=== PATIENT | male | born 1965 | race Two or more races ===

== ENCOUNTER 2017-09-16 18:23 | Inpatient (IN) | payer OTHER ==
[~2017-09-16] VITALS: Ht 177.8 cm; Wt 101.0 kg
[2017-09-16 16:30] VITALS: O2SAT 98
[~2017-09-16 18:23] MED LIST: AMLO5TAB2 PO; ASPI-516 CHEW; CALCTAB25; CLON0.2T PO; FURO1TAB60 PO; LISI-515 PO; LOVA40TA PO; METO100T PO; POTA10CA PO; SPIR50TA PO
--- NOTE | 2017-09-16 19:10 | HHI.HP ---
[facility] Service [facility] Primary Care Physician Non-Staff Admission Diagnosis Diagnoses: Chief Complaint: scrotal swelling Travel History International Travel<30 Days: No Contact w/Intl Traveler <30 Da: No History of Present Illness 52-year-old male being admitted for abdominal distention and scrotal edema Patient was in his usual state of health until over the last 2-3 weeks he began noticing scrotal edema as well as worsening lower extremity edema. He says the edema was intermittent and would fluctuate. However it has progressed within the past few days and he want to go see his primary care provider who then referred him to the emergency department. Patient also notes that his abdomen overall has become more distended than usual. Patient denies having any chest pain. He reports being just mildly short of breath which he attributes to his large abdomen. He reports having more difficulty lying flat in the past few days. In the [place] emergency department he was noted to have stable vital signs. UA substantial proteinuria. EKG showed NSR. CXR showed no acute pulmonic infiltrates. ER doc suspected pt's SOB was due to his ascites. BNP was 249. 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 EYES: No scleral icterus. No injection or drainage. ENT: No nasal bleeding or discharge. Mucous membranes pink and moist. CARDIOVASCULAR: Regular rate and rhythm. no murmurs RESPIRATORY: No accessory muscle use. Clear to auscultation. Breath sounds equal bilaterally. GASTROINTESTINAL: Abdomen non-tender, mod to severe distention; no isai ascitic wave appreciated yet is soft. Hepatic and splenic margins not palpable. Extremities: No clubbing, cyanosis. Moder BL LE edema and moderate generalized nonerythematous nontender diffuse scrotal edema MUSCULOSKELETAL: adequate muscle bulk and tone for age and habitus NEUROLOGICAL: Awake and alert. No obvious cranial nerve deficits. No facial droop nor slurred speech noted. PSYCHIATRIC: Appropriate mood and affect; insight and judgment normal. Caprini VTE Risk Assessment Caprini VTE Risk Assessment: Mod/High Risk (score >= 2) Caprini Risk Assessment Model Point Value = 1 Point Value = 2 Point Value = 3 Point Value = 5 Age 41-60 Minor surgery BMI > 25 kg/m2 Swollen legs Varicose veins or History of unexplained or recurrent spontaneous Oral contraceptives or hormone replacement Sepsis (< 1 month) Serious lung disease, including pneumonia (< 1 month) Abnormal pulmonary function Acute myocardial infarction Congestive heart failure (< 1 month) History of inflammatory bowel disease Medical patient at bed rest Age 61-74 Arthroscopic surgery Major open surgery (> 45 min) Laparoscopic surgery (> 45 min) Malignancy Confined to bed (> 72 hours) Immobilizing plaster cast Central venous access Age >= 75 History of VTE Family history of VTE Factor V Leiden Prothrombin [id number] Lupus anticoagulant Anticardiolipin antibodies Elevated serum homocysteine Heparin-induced thrombocytopenia Other congenital or acquired thrombophilia Stroke (< 1 month) Elective arthroplasty Hip, pelvis, or leg fracture Acute spinal cord injury (< 1 month) Prophylaxis Regimen Total Risk Factor Score Risk Level Prophylaxis Regimen 0-1 Low Early ambulation 2 Moderate Order ONE of the following: *Sequential Compression Device (SCD) *Heparin 5000 units SQ BID 3-4 Higher Order ONE of the following medications: *Heparin 5000 units SQ TID *Enoxaparin/Lovenox 40 mg SQ daily (WT < 150 kg, CrCl > 30 mL/min) *Enoxaparin/Lovenox 30 mg SQ daily (WT < 150 kg, CrCl > 10-29 mL/min) *Enoxaparin/Lovenox 30 mg SQ BID (WT < 150 kg, CrCl > 30 mL/min) AND/OR *Sequential Compression Device (SCD) 5 or more Highest Order ONE of the following medications: *Heparin 5000 units SQ TID (Preferred with Epidurals) *Enoxaparin/Lovenox 40 mg SQ daily (WT < 150 kg, CrCl > 30 mL/min) *Enoxaparin/Lovenox 30 mg SQ daily (WT < 150 kg, CrCl > 10-29 mL/min) *Enoxaparin/Lovenox 30 mg SQ BID (WT < 150 kg, CrCl > 30 mL/min) AND *Sequential Compression Device (SCD) Assessment and Plan Assessment and Plan Anasarca and suspected ascites - Suspect that this is largely due to ascites likely secondary to proteinuria, but may possibly have additional component of undiagnosed HF given elevated trops; LFTs neg - Scheduling ultrasound-guided paracentesis - intake and output; high protein and low fluid diet - echo in AM; Elevated troponin - Could be due to mildly impaired renal function, discussed with cardiology, will transfer to the main hospital tonight for possible catheterization in AM while holding off on heparin drip in light of possible paracentesis; I do not suspect isai ACS at this time - resume home BP meds including Lopressor and clonidine and aspirin - echo in AM - trending troponin Nephrotic syndrome w/ possible [place] - consulting nephro; high protein low sodium diet - Continue home Lisinopril, spironolactone; hold home lasix until RF returns to baseline or baseline is established - BMP in AM hypokalemia - replace K and Mg as warranted, trend in AM SCDs for now; heparin once paracentesis fully addressed Physician Certification 2 Midnight Certification Type: Admission for Inpatient Services Order for Inpatient Services The services are ordered in accordance with Medicare regulations or non- Medicare payer requirements, as applicable. In the case of services not specified as inpatient-only, they are appropriately provided as inpatient services in accordance with the 2-midnight benchmark. Estimated LOS (days): 2 2 days is the estimated time the patient will need to remain in the hospital, assuming treatment plan goals are met and no additional complications. Post-Hospital Plan: Not yet determined Jason Bethea MD Sep 16, 2017 19:10
[2017-09-16] MEDS: POTASSIUM CHLORIDE 10 MEQ CONTROLLED RELEASE TAB PO SCH (19:59)
[2017-09-16] MEDS: cloNIDine HCL 0.2 MG TAB PO SCH (19:59)
[2017-09-16] MEDS: METOPROLOL TARTRATE 100 MG TAB PO SCH (19:59)
[2017-09-16 20:00] VITALS: BP 210/106; PULSE 70; RESP 18; TEMP 96.2; O2SAT 96
[2017-09-16 20:58] VITALS: PULSE 66
[2017-09-16] MEDS ORDERED: HEPARIN SODIUM - SQ 10,000 UNITS/ML VIAL SQ SCH (21:00)
[2017-09-16 22:00] VITALS: BP 149/95; PULSE 62; RESP 22; TEMP 98.7; O2SAT 96
[2017-09-16] MEDS: LISINOPRIL 20 MG TAB PO SCH (22:45)
[2017-09-16] MEDS: MAGNESIUM SULFATE 1 GM PREMIX 100 ML IV SCH (23:30)
[2017-09-17] VITALS (20 sets, daily range): BP systolic 138–175; BP diastolic 78–102; PULSE 54–70; RESP 12–19; TEMP 96.8–98.6; O2SAT 97–100
[2017-09-17] MEDS: MAGNESIUM SULFATE 1 GM PREMIX 100 ML IV SCH (00:30)
[2017-09-17] MEDS: LISINOPRIL 20 MG TAB PO SCH (09:00)
[2017-09-17] MEDS ORDERED: FUROSEMIDE 20 MG TAB PO SCH (09:00)
[2017-09-17] MEDS: cloNIDine HCL 0.2 MG TAB PO SCH ×2 (09:34→20:02)
[2017-09-17] MEDS: POTASSIUM CHLORIDE 10 MEQ CONTROLLED RELEASE TAB PO SCH ×2 (09:35→21:03)
[2017-09-17] MEDS: amLODIPine BESYLATE 5 MG TAB PO SCH (09:35)
[2017-09-17] MEDS: ASPIRIN 81 MG CHEW TAB CHEW SCH (09:35)
[2017-09-17] MEDS: METOPROLOL TARTRATE 100 MG TAB PO SCH ×2 (09:36→20:02)
[2017-09-17] MEDS: SPIRONOLACTONE 50 MG TAB PO SCH (09:36)
[2017-09-17] MEDS: PRAVASTATIN SOD 40 MG TAB PO SCH (09:36)
--- NOTE | 2017-09-17 10:21 | MB ---
cc: Jameson Coe MD DATE OF CONSULT: 09/17/2017 HISTORY: Mr. Chapman is a 52 year-old male with a history of nephrotic syndrome. He has developed scrotal edema, lower extremity edema and ascites over the last two to three weeks. He has noticed distended abdomen, mild shortness of breath related to this. He also has had mild orthopnea. He has not had any chest discomfort. He has no previous cardiac history. His past medical history is positive for nephrotic syndrome. He has no history of coronary artery disease or CVA. 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 MEDICATIONS: Include: 1. Lovastatin. 2. Clonidine. 3. Metoprolol. 4. Amlodipine. 5. Lisinopril. 6. Spironolactone. 7. Aspirin. 8. Calcium. 9. Vitamin D. 10. Potassium. 11. Furosemide ALLERGIES: None. SOCIAL HISTORY: The patient is a smoker. He does not drink alcohol. FAMILY HISTORY: Positive for hypertension in his sister, negative for coronary artery disease. REVIEW OF SYSTEMS: Otherwise negative. PHYSICAL EXAM: VITAL SIGNS: Blood pressure 152/88, pulse 63 and irregular. HEENT: Negative. NECK: 2+ carotid upstrokes. No bruits. LUNGS: Clear. HEART: Regular with no murmur, gallop or rub. ABDOMEN: Soft, distended. EXTREMITIES: With bilateral 2+ edema. 1+ distal pulses. NEUROLOGIC: Grossly nonfocal. EKG was reviewed and showed normal sinus rhythm with normal axis and intervals. LABS: Troponin 0.11 and 0.11. Hemoglobin 8.6, potassium 2.8, creatinine 1.5, AST/ALT normal, troponin 0.11, BNP 249. DIAGNOSIS: 1. Anasarca. 2. Ascites. 3. Nephrotic syndrome. 4. Renal insufficiency. 5. Elevated troponin. 6. Hypokalemia. DISPOSITION: Mr. Chapman will undergo paracentesis today as planned. He will be scheduled for adenosine myocardial perfusion study to evaluate for ischemia. We will also obtain echocardiogram to evaluate his left ventricular function. I will follow him for cardiology during his hospitalization. He will continue therapy for his nephrotic syndrome. The plan was discussed with the patient and his sister who is a nurse practitioner. Jameson Coe MD OQ/DL/ , 08:25 AM , 09:20 AM
[2017-09-17] MEDS ORDERED: ALBUMIN 25% INJ 0 ML IV ONE (11:00)
--- NOTE | 2017-09-17 11:25 | EKG ---
Date Performed: 09/16/2017 Time Performed: 20:09:50 PTAGE: 52 years EKG: Sinus rhythm NORMAL ECG NO PREVIOUS TRACING DOCTOR: Juan F Larios Interpretating Date/Time 09/17/2017 11:23:24
--- NOTE | 2017-09-17 12:26 | RADRPT ---
EXAM DATE/TIME: 09/17/2017 08:34 [facility] COMPARISON: No previous studies available for comparison. INDICATIONS : Ascites. MEDICAL HISTORY : Hypertension. Hypercholesterolemia. Autoimmune Hemolytic Anemia. Tricuspid Regurgitation. SURGICAL HISTORY : Cyst on forehead removal. ENCOUNTER: Initial ACUITY: 3 weeks PAIN SCORE: 6/10 LOCATION: Bilateral lower abdomen. FLUID: Total volume of 10,400 cc of clear, yellow fluid was removed. Fluid was sent to lab for ordered studies. Post procedure scanning reveals no hematoma or other complication. TECHNIQUE: 1. Ultrasound guidance for abdominal paracentesis. 2. Paracentesis. The risks, benefits, and alternatives to ultrasound guided paracentesis were explained to the patient in detail including the risk of bleeding and infection. Written and verbal informed consent was obt ained. With the patient on the ultrasound table, ultrasound imaging was used to select the most appropriate approach for paracentesis. Overlying skin was prepped and draped in the usual sterile fashion and wi th a local anesthetic, a dermatotomy was made with an 11 blade scalpel. A 6 Thai [id number] ca theter was introduced into the peritoneal cavity and fluid was collected. The patient tolerated the procedure well and left the ultrasound suite in stable condition. CONCLUSION: Uncomplicated ultrasound guided paracentesis. Fluid was sent for studies. Dominick Thorne MD FACR on September 17, 2017 at 12:24 Board Certified Radiologist. This report was verified electronically.
[2017-09-17 12:40] LABS: PERITONEAL BASO 1 %; PERITONEAL HISTIOCYTES 23 %; PERITONEAL LYMPHS 71 %; PERITONEAL MONOS 3 %; PERITONEAL POLYS(SEGS) 2 %; PERITONEAL RBC 162 /MM3 (0-0)
[2017-09-17] MEDS ORDERED: REGADENOSON INJ 0.4 MG/5 ML SYR ONE (13:28)
--- NOTE | 2017-09-17 14:30 | RADRPT ---
EXAM DATE/TIME: 09/17/2017 13:05 [facility] COMPARISON: No previous studies available for comparison. INDICATIONS : Elevated troponins and lower extremity edema. Coronary artery disease. DOSE: 30.1 mCi Tc99m Myoview at stress. 10.3 mCi Tc99m Myoview at rest. 0.4 mg Lexiscan STRESS SYMPTOMS: None. EJECTION FRACTION: 44% MEDICAL HISTORY : Hypertension. SURGICAL HISTORY : None. ENCOUNTER: Initial ACUITY: 1 day PAIN SCALE: 0/10 LOCATION: Bilateral chest TECHNIQUE: The patient underwent pharmacologic stress with infusion of prescribed dose. Continuous ECG tracing was monitored during stress. Gated SPECT imaging was performed after stress and conventional SPECT i maging was performed at rest. The examination was performed on a SPECT/CT scanner, both attenuation and non-corrected datasets were reviewed. FINDINGS: DISTRIBUTION: The maximum perfused segment at stress is in the lateral wall. PERFUSION STUDY: There is a mild severity anterior wall perfusion abnormality which extends the cardiac apex. This kerr s not appear to be reversible. GATED STUDY: Moderate left ventricular chamber enlargement with global hypokinesis. CONCLUSION: No reversible perfusion abnormalities. Moderate LV dysfunction. RISK CATEGORY: Intermediate (1-3% Annual Mortality Rate) Jesse Mahan MD on September 17, 2017 at 14:24 Board Certified Radiologist. This report was verified electronically.
[2017-09-17] MEDS ORDERED: LOSARTAN 25 MG TAB PO ONE (17:15)
[2017-09-17] MEDS ORDERED: ALBUMIN 25% INJ 200 ML IV ONE (17:45)
[2017-09-17 19:02] LABS: AUTOMATED NEUTROPHIL # 9.1 TH/MM3 (1.8-7.7); BASOPHIL # 0.1 TH/MM3 (0-0.2); BASOPHIL % 0.6 % (0.0-2.0); EOSINOPHIL # 0.6 TH/MM3 (0-0.4); EOSINOPHIL % 4.7 % (0.0-4.0); HEMATOCRIT 31.1 % (39.0-51.0); HEMOGLOBIN 10.5 GM/DL (13.0-17.0); LYMPH % 21.2 % (9.0-44.0); LYMPHOCYTE # 2.8 TH/MM3 (1.0-4.8); MEAN CELL VOLUME 86.7 FL (80.0-100.0); MEAN CORPUSCULAR HEMOGLOBIN 29.3 PG (27.0-34.0); MEAN CORPUSCULAR HGB CONC 33.8 % (32.0-36.0); MONO % 5.6 % (0.0-8.0); MONOCYTE # 0.8 TH/MM3 (0-0.9); NEUT % 67.9 % (16.0-70.0); PLATELET COUNT 316 TH/MM3 (150-450); RED BLOOD COUNT 3.59 MIL/MM3 (4.50-5.90); RED CELL DISTRIBUTION WIDTH 14.6 % (11.6-17.2); WHITE BLOOD COUNT 13.4 TH/MM3 (4.0-11.0)
[2017-09-17] MEDS: ALBUMIN 25% INJ 50 ML IV ONE ×2 (19:45→20:29)
[2017-09-17 20:02] LABS: ALBUMIN 0.8 GM/DL (3.4-5.0); ALKALINE PHOSPHATASE 109 U/L (45-117); ALT (GPT) 10 U/L (12-78); AST (GOT) 20 U/L (15-37); BICARBONATE 27.9 MEQ/L (21.0-32.0); BLOOD UREA NITROGEN 13 MG/DL (7-18); CALCIUM 7.7 MG/DL (8.5-10.1); CHLORIDE 111 MEQ/L (98-107); GLOMERULAR FILTRATION RATE 54 ML/MIN (>89); GLUCOSE,RANDOM 87 MG/DL (74-106); SODIUM (NA) 147 MEQ/L (136-145); TOTAL BILIRUBIN ADULT 0.2 MG/DL (0.2-1.0); TOTAL PROTEIN 4.3 GM/DL (6.4-8.2)
--- NOTE | 2017-09-17 20:42 | PD.CONS ---
HPI Service Nephrology Consult Requested By Dr. 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 [place] he had kidney Biopsy 2 years ago and was treated with steroids, and now with Acthar 80 units every 2 weeks Review of Systems Constitutional: COMPLAINS OF: Fatigue Respiratory: COMPLAINS OF: Shortness of breath Cardiovascular: COMPLAINS OF: Lower Extremity Edema Gastrointestinal: COMPLAINS OF: Abdominal pain Past Family Social History Allergies: Coded Allergies: No Known Allergies (Unverified , 09/16/17) Past Medical History Nephrotic syndrome Hemolytic anemia Hypertension Proteinuria Past Surgical History Kidney biopsy Reported Medications Reported Meds & Active Scripts Active Reported Lisinopril 20 Mg Tab 20 Mg PO BID Spironolactone 50 Mg Tab 50 Mg PO DAILY Lasix (Furosemide) 40 Mg Tab 60 Mg PO DAILY Potassium Chloride ER (Potassium Chloride) 10 Meq Cap 10 Meq PO BID Clonidine (Clonidine HCl) 0.2 Mg Tab 0.2 Mg PO BID Amlodipine (Amlodipine Besylate) 5 Mg Tab 5 Mg PO DAILY Metoprolol Tartrate 100 Mg Tab 100 Mg PO BID Aspirin 81 Mg Chew 81 Mg CHEW DAILY Lovastatin 40 Mg Tab 40 Mg PO DAILY Calcium 500 + Vit D Caplet (Calcium Carbonate/Vitamin D3) 500 Mg-125 Tablet Active Ordered Medications Current Medications Medications (Trade) Dose Ordered Sig/Devan Route Start Time Stop Time Status Last Admin (Pravachol) 40 mg DAILY PO 09/17/17 09:00 09/17/17 09:36 (Lopressor) 100 mg BID PO 09/16/17 21:00 09/17/17 20:02 (KCl) 10 meq BID PO 09/16/17 21:00 09/17/17 09:35 (Aldactone) 50 mg DAILY PO 09/17/17 09:00 09/17/17 09:36 (Catapres) 0.2 mg BID PO 09/16/17 21:00 09/17/17 20:02 (Heparin Inj) 5,000 units Q12HR SQ 09/16/17 21:00 Future Hold 09/16/17 20:00 (Aspirin Chew) 81 mg DAILY CHEW 09/17/17 09:00 09/17/17 09:35 (Norvasc) 5 mg DAILY PO 09/17/17 09:00 09/17/17 09:35 (Cozaar) 25 mg DAILY PO 09/18/17 09:00 Family History His sister has hypertension Social History Denies smoking or alcohol Physical Exam Vital Signs Vital Signs Date Time Temp Pulse Resp B/P (MAP) Pulse Ox O2 Delivery O2 Flow Rate FiO2 09/17/17 18:00 62 09/17/17 17:06 21 09/17/17 17:00 62 09/17/17 16:00 68 09/17/17 15:00 98.6 64 19 173/102 (125) 97 09/17/17 15:00 97 Room Air 09/17/17 15:00 62 09/17/17 11:59 97.4 60 18 157/80 (105) 100 09/17/17 11:45 97.4 54 12 161/84 (109) 100 09/17/17 10:16 96.8 58 17 173/96 (121) 98 09/17/17 10:00 66 09/17/17 09:37 97.8 67 18 175/101 (125) 98 09/17/17 09:37 98 Room Air 09/17/17 09:00 70 09/17/17 08:00 64 09/17/17 07:00 63 09/17/17 04:00 63 09/17/17 04:00 98.4 63 18 152/88 (109) 09/17/17 04:00 95 Room Air 09/17/17 00:00 59 18 163/92 (115) 09/17/17 00:00 59 09/16/17 22:00 96 21 09/16/17 22:00 62 09/16/17 22:00 98.7 62 22 149/95 (113) 96 09/16/17 22:00 96 Room Air 09/16/17 20:58 66 Physical Exam GENERAL: Well-nourished, well-developed patient. SKIN: Warm and dry. HEAD: Normocephalic. EYES: No scleral icterus. No injection or drainage. NECK: Supple, trachea midline. No JVD or lymphadenopathy. CARDIOVASCULAR: Regular rate and rhythm without murmurs, gallops, or rubs. RESPIRATORY: Breath sounds diminished at bases GASTROINTESTINAL: Abdomen soft, distended. EXTREMITIES: No cyanosis, 3+ edema. NEUROLOGICAL: Awake, alert, and oriented x 3. Non-focal. Laboratory Laboratory Tests Test 09/17/17 03:19 09/17/17 10:50 09/17/17 18:18 Troponin I 0.11 Peritoneal Fluid WBC 239 Peritoneal Fluid RBC 162 Peritoneal Fluid Neutrophils 2 Peritoneal Fluid Lymphocytes 71 Peritoneal Fluid Monocytes 3 Peritoneal Fluid Basophils 1 Peritoneal Fluid Histiocytes 23 Peritoneal Fluid Total Protein 1.0 Peritoneal Fluid Albumin 0.3 Peritoneal Fluid Glucose 77 White Blood Count 13.4 Red Blood Count 3.59 Hemoglobin 10.5 Hematocrit 31.1 Mean Corpuscular Volume 86.7 Mean Corpuscular Hemoglobin 29.3 Mean Corpuscular Hemoglobin Concent 33.8 Red Cell Distribution Width 14.6 Platelet Count 316 Mean Platelet Volume 8.0 Neutrophils (%) (Auto) 67.9 Lymphocytes (%) (Auto) 21.2 Monocytes (%) (Auto) 5.6 Eosinophils (%) (Auto) 4.7 Basophils (%) (Auto) 0.6 Neutrophils # (Auto) 9.1 Lymphocytes # (Auto) 2.8 Monocytes # (Auto) 0.8 Eosinophils # (Auto) 0.6 Basophils # (Auto) 0.1 CBC Comment DIFF FINAL Differential Comment Blood Urea Nitrogen 13 Creatinine 1.40 Random Glucose 87 Total Protein 4.3 Albumin 0.8 Calcium Level 7.7 Alkaline Phosphatase 109 Aspartate Amino Transf (AST/SGOT) 20 Alanine Aminotransferase (ALT/SGPT) 10 Total Bilirubin 0.2 Sodium Level 147 Potassium Level 2.9 Chloride Level 111 Carbon Dioxide Level 27.9 Anion Gap 8 Estimat Glomerular Filtration Rate 54 Date/Time Source Procedure Growth Status 09/17/17 10:50 Fluid Peritoneal Fluid Gram Stain - Final Resulted 09/17/17 10:50 Fluid Peritoneal Fluid Body Fluid Culture Pending Resulted Result Diagram: 09/17/17181709/17/171817 Assessment and Plan Problem List: (1) Nephrotic syndrome ICD Codes: N04.9 - Nephrotic syndrome with unspecified morphologic changes Plan: Patient needs further evaluation get ROXANE and serum complements C3-C4, Urine protein Checked Follow-up BMP Get lipid profile Avoid nephrotoxins Continue to diurese Her follows with Dr. Moon who can follow him once discharged he will need anticoagulation Rec to add Eliquis 2.5 mg bid Lasix 40 mg daily and Potassium supplements. (2) Hypertension ICD Codes: I10 - Essential (primary) hypertension Plan: Plan continue with antihypertensive medication Problem Qualifiers (1) Hypertension: Qualified Codes: I10 - Essential (primary) hypertension Parvez Wise MD Sep 17, 2017 20:42
[2017-09-17] MEDS ORDERED: POTASSIUM CHLORIDE 20 MEQ CONTROLLED RELEASE TAB PO ONE (21:00)
[2017-09-17] MEDS ORDERED: MAGNESIUM SULFATE 1 GM PREMIX 100 ML IV ONE (23:00)
--- NOTE | 2017-09-17 23:01 | HHI.PR ---
Subjective Remarks Patient seen this afternoon around 3 PM. Says he is feeling better after paracentesis. Objective Vital Signs Date Time Temp Pulse Resp B/P (MAP) Pulse Ox O2 Delivery O2 Flow Rate FiO2 09/17/17 20:00 56 09/17/17 19:00 56 09/17/17 18:00 62 09/17/17 17:06 21 09/17/17 17:00 62 09/17/17 16:00 68 09/17/17 15:00 98.6 64 19 173/102 (125) 97 09/17/17 15:00 97 Room Air 09/17/17 15:00 62 09/17/17 11:59 97.4 60 18 157/80 (105) 100 09/17/17 11:45 97.4 54 12 161/84 (109) 100 09/17/17 10:16 96.8 58 17 173/96 (121) 98 09/17/17 10:00 66 09/17/17 09:37 97.8 67 18 175/101 (125) 98 09/17/17 09:37 98 Room Air 09/17/17 09:00 70 09/17/17 08:00 64 09/17/17 07:00 63 09/17/17 04:00 63 09/17/17 04:00 98.4 63 18 152/88 (109) 09/17/17 04:00 95 Room Air 09/17/17 00:00 59 18 163/92 (115) 09/17/17 00:00 59 I/O 09/16/17 09/16/17 09/16/17 09/17/17 09/17/17 09/17/17 07:00 15:00 23:00 07:00 15:00 23:00 Intake Total 440 ml 650 ml Output Total 300 ml Balance 140 ml 650 ml Intake Oral 240 ml 400 ml IV Total 200 ml 250 ml Output Urine Total 300 ml # Voids 2 # Bowel Movements 0 Result Diagram: 09/17/17181709/17/171817 Objective Remarks GENERAL: patient lying in bed. Appears comfortable. SKIN: Warm and dry. HEAD: Normocephalic. EYES: No scleral icterus. No injection or drainage. NECK: Supple, trachea midline. No JVD. CARDIOVASCULAR: Regular rate and rhythm without murmurs, gallops, or rubs. RESPIRATORY: Breath sounds equal bilaterally. No accessory muscle use. GASTROINTESTINAL: Abdomen soft, non-tender, nondistended. MUSCULOSKELETAL: No cyanosis. Diffuse anasarca. BACK: Nontender without obvious deformity. No CVA tenderness. A/P Assessment and Plan //Anasarca and suspected ascites - Suspect that this is largely due to ascites likely secondary to proteinuria, but may possibly have additional component of undiagnosed HF given elevated trops; LFTs neg - Scheduling ultrasound-guided paracentesis - intake and output; high protein and low fluid diet - echo in AM; //Severe nephrotic syndrome. Acute on chronic Consult cardiology. Start losartan.spironolactone; hold home lasix until RF returns to baseline or baseline is established = Nephrology following. Appreciate assistance. //Elevated troponin - Could be due to mildly impaired renal function, discussed with cardiology, will transfer to the main hospital tonight for possible catheterization in AM while holding off on heparin drip in light of possible paracentesis; I do not suspect isai ACS at this time - resume home BP meds including Lopressor and clonidine and aspirin - echo in AM - trending troponin = Troponin positive at 0.11. Moderate risk myocardial perfusion scan. Cardiology following. Patient without chest pain. Appreciate assistance. //hypokalemia - replace K and Mg as warranted, trend in AM SCDs for now; heparin once paracentesis fully addressed Discharge Planning pending cardiology and nephrology clearance Chauncey Alcantara MD Sep 17, 2017 23:01
[2017-09-18] VITALS (30 sets, daily range): BP systolic 134–172; BP diastolic 70–100; PULSE 56–78; RESP 18; TEMP 97.6–98.3; O2SAT 96–99
[2017-09-18 02:17] LABS: BILIRUBIN, URINE NEG (NEG); BLOOD, URINE SMALL (NEG); GLUCOSE,URINE 150 mg/dL (NEG); HYALINE CAST, URINE 15 /lpf (RARE); KETONE, URINE NEG (NEG); MUCUS URINE FEW /lpf (OCC); NITRITE,URINE NEG (NEG); SQUAMOUS EPITHELIAL CELL URINE <1 /hpf (0-5); URINE COLOR YELLOW (YELLW/STRAW); URINE LEUKOCYTE ESTERASE NEG (NEG)
[2017-09-18 08:01] LABS: AUTOMATED NEUTROPHIL # 7.2 TH/MM3 (1.8-7.7); BASOPHIL # 0.1 TH/MM3 (0-0.2); BASOPHIL % 0.5 % (0.0-2.0); EOSINOPHIL # 0.5 TH/MM3 (0-0.4); EOSINOPHIL % 5.2 % (0.0-4.0); HEMATOCRIT 24.2 % (39.0-51.0); HEMOGLOBIN 8.6 GM/DL (13.0-17.0); LYMPH % 17.6 % (9.0-44.0); LYMPHOCYTE # 1.8 TH/MM3 (1.0-4.8); MEAN CELL VOLUME 85.3 FL (80.0-100.0); MEAN CORPUSCULAR HEMOGLOBIN 30.3 PG (27.0-34.0); MEAN CORPUSCULAR HGB CONC 35.5 % (32.0-36.0); MEAN PLATELET VOLUME 7.9 FL (7.0-11.0); MONO % 6.8 % (0.0-8.0); MONOCYTE # 0.7 TH/MM3 (0-0.9); NEUT % 69.9 % (16.0-70.0); PLATELET COUNT 263 TH/MM3 (150-450); RED BLOOD COUNT 2.84 MIL/MM3 (4.50-5.90); RED CELL DISTRIBUTION WIDTH 14.3 % (11.6-17.2); WHITE BLOOD COUNT 10.3 TH/MM3 (4.0-11.0)
[2017-09-18 08:09] LABS: ALBUMIN 1.5 GM/DL (3.4-5.0); CALCIUM 7.7 MG/DL (8.5-10.1); CREATININE 1.33 MG/DL (0.60-1.30); MAGNESIUM 1.9 MG/DL (1.5-2.5); PHOSPHORUS 2.6 MG/DL (2.5-4.9)
[2017-09-18 08:10] LABS: COMPLEMENT C3 113 MG/DL (90-180); COMPLEMENT C4 28 MG/DL (10-40)
[2017-09-18 08:14] LABS: BICARBONATE 26.2 MEQ/L (21.0-32.0); CHOLESTEROL/ HDL RATIO 3.88 RATIO; HDL CHOLESTEROL 39.4 MG/DL (40.0-60.0)
--- NOTE | 2017-09-18 08:39 | PD.CARD.PN ---
Subjective Subjective Remarks No CP, mild SOB, edema improving Objective Medications Current Medications Medications (Trade) Dose Ordered Sig/Devan Route Start Time Stop Time Status Last Admin (Pravachol) 40 mg DAILY PO 09/17/17 09:00 09/17/17 09:36 (Lopressor) 100 mg BID PO 09/16/17 21:00 09/17/17 20:02 (KCl) 10 meq BID PO 09/16/17 21:00 09/17/17 21:03 (Aldactone) 50 mg DAILY PO 09/17/17 09:00 09/17/17 09:36 (Catapres) 0.2 mg BID PO 09/16/17 21:00 09/17/17 20:02 (Heparin Inj) 5,000 units Q12HR SQ 09/16/17 21:00 Future Hold 09/16/17 20:00 (Aspirin Chew) 81 mg DAILY CHEW 09/17/17 09:00 09/17/17 09:35 (Norvasc) 5 mg DAILY PO 09/17/17 09:00 09/17/17 09:35 (Cozaar) 25 mg DAILY PO 09/18/17 09:00 (Lasix) 40 mg DAILY PO 09/18/17 09:00 (KCl) 16 meq Q12HR PO 09/18/17 09:00 Vital Signs / I&O Vital Signs Date Time Temp Pulse Resp B/P (MAP) Pulse Ox O2 Delivery O2 Flow Rate FiO2 09/18/17 06:00 62 09/18/17 05:00 57 09/18/17 04:00 62 09/18/17 03:10 98.3 64 18 152/86 (108) 99 09/18/17 03:00 59 09/18/17 02:00 60 09/18/17 01:00 56 09/18/17 00:00 56 09/17/17 23:00 56 09/17/17 23:00 97.6 63 18 138/78 (98) 99 09/17/17 22:00 56 09/17/17 21:00 56 09/17/17 20:00 56 09/17/17 19:30 98.0 68 18 167/87 (113) 99 09/17/17 19:30 98 21 09/17/17 19:00 56 09/17/17 18:00 62 09/17/17 17:06 21 09/17/17 17:00 62 09/17/17 16:00 68 09/17/17 15:00 98.6 64 19 173/102 (125) 97 09/17/17 15:00 97 Room Air 09/17/17 15:00 62 09/17/17 11:59 97.4 60 18 157/80 (105) 100 09/17/17 11:45 97.4 54 12 161/84 (109) 100 09/17/17 10:16 96.8 58 17 173/96 (121) 98 09/17/17 10:00 66 09/17/17 09:37 97.8 67 18 175/101 (125) 98 09/17/17 09:37 98 Room Air 09/17/17 09:00 70 I/O 09/17/17 09/17/17 09/17/17 09/18/17 09/18/17 09/18/17 07:00 15:00 23:00 07:00 15:00 23:00 Intake Total 440 ml 650 ml 580 ml Output Total 300 ml 600 ml Balance 140 ml 650 ml -20 ml Intake Oral 240 ml 400 ml 480 ml IV Total 200 ml 250 ml 100 ml Output Urine Total 300 ml 600 ml # Voids 2 # Bowel Movements 0 1 Physical Exam GENERAL: In NAD SKIN: Warm and dry. HEAD: Normocephalic. EYES: No scleral icterus. No injection or drainage. NECK: Supple, trachea midline. No JVD or lymphadenopathy. CARDIOVASCULAR: Regular rate and rhythm without murmurs, gallops, or rubs. RESPIRATORY: Breath sounds equal bilaterally. No accessory muscle use. GASTROINTESTINAL: Abdomen soft, non-tender. MUSCULOSKELETAL: No cyanosis, bilat LE edema. Laboratory Laboratory Tests Test 09/17/17 10:50 09/17/17 18:18 09/18/17 01:35 09/18/17 07:21 Peritoneal Fluid WBC 239 /MM3 Peritoneal Fluid RBC 162 /MM3 Peritoneal Fluid Neutrophils 2 % Peritoneal Fluid Lymphocytes 71 % Peritoneal Fluid Monocytes 3 % Peritoneal Fluid Basophils 1 % Peritoneal Fluid Histiocytes 23 % Peritoneal Fluid Total Protein 1.0 GM/DL Peritoneal Fluid Albumin 0.3 G/DL Peritoneal Fluid Glucose 77 MG/DL White Blood Count 13.4 TH/MM3 10.3 TH/MM3 Red Blood Count 3.59 MIL/MM3 2.84 MIL/MM3 Hemoglobin 10.5 GM/DL 8.6 GM/DL Hematocrit 31.1 % 24.2 % Mean Corpuscular Volume 86.7 FL 85.3 FL Mean Corpuscular Hemoglobin 29.3 PG 30.3 PG Mean Corpuscular Hemoglobin Concent 33.8 % 35.5 % Red Cell Distribution Width 14.6 % 14.3 % Platelet Count 316 TH/MM3 263 TH/MM3 Mean Platelet Volume 8.0 FL 7.9 FL Neutrophils (%) (Auto) 67.9 % 69.9 % Lymphocytes (%) (Auto) 21.2 % 17.6 % Monocytes (%) (Auto) 5.6 % 6.8 % Eosinophils (%) (Auto) 4.7 % 5.2 % Basophils (%) (Auto) 0.6 % 0.5 % Neutrophils # (Auto) 9.1 TH/MM3 7.2 TH/MM3 Lymphocytes # (Auto) 2.8 TH/MM3 1.8 TH/MM3 Monocytes # (Auto) 0.8 TH/MM3 0.7 TH/MM3 Eosinophils # (Auto) 0.6 TH/MM3 0.5 TH/MM3 Basophils # (Auto) 0.1 TH/MM3 0.1 TH/MM3 CBC Comment DIFF FINAL DIFF FINAL Differential Comment Blood Urea Nitrogen 13 MG/DL 12 MG/DL Creatinine 1.40 MG/DL 1.33 MG/DL Random Glucose 87 MG/DL 78 MG/DL Total Protein 4.3 GM/DL Albumin 0.8 GM/DL 1.5 GM/DL Calcium Level 7.7 MG/DL 7.7 MG/DL Alkaline Phosphatase 109 U/L Aspartate Amino Transf (AST/SGOT) 20 U/L Alanine Aminotransferase (ALT/SGPT) 10 U/L Total Bilirubin 0.2 MG/DL Sodium Level 147 MEQ/L 146 MEQ/L Potassium Level 2.9 MEQ/L 3.2 MEQ/L Chloride Level 111 MEQ/L 111 MEQ/L Carbon Dioxide Level 27.9 MEQ/L 26.2 MEQ/L Anion Gap 8 MEQ/L 9 MEQ/L Estimat Glomerular Filtration Rate 54 ML/MIN 57 ML/MIN Urine Color YELLOW Urine Turbidity CLEAR Urine pH 7.0 Urine Specific Atkinson 1.019 Urine Protein GREATER THAN 600 mg/dL Urine Glucose (UA) 150 mg/dL Urine Ketones NEG mg/dL Urine Occult Blood SMALL Urine Nitrite NEG Urine Bilirubin NEG Urine Urobilinogen LESS THAN 2.0 MG/DL Urine Leukocyte Esterase NEG Urine RBC 2 /hpf Urine WBC 1 /hpf Urine Squamous Epithelial Cells <1 /hpf Urine Hyaline Casts 15 /lpf Urine Mucus FEW /lpf Microscopic Urinalysis Comment CULT NOT INDICATED Urine Random Creatinine 99 MG/DL Urine Random Total Protein 1581 MG/DL Urine Protein/Creatinine Ratio 15.97 Phosphorus Level 2.6 MG/DL Magnesium Level 1.9 MG/DL Triglycerides Level 110 MG/DL Cholesterol Level 153 MG/DL LDL Cholesterol 92 MG/DL HDL Cholesterol 39.4 MG/DL Cholesterol/HDL Ratio 3.88 RATIO Complement C3 113 MG/DL Complement C4 28 MG/DL Assessment and Plan Problem List: (1) Anasarca ICD Codes: R60.1 - Generalized edema (2) Elevated troponin ICD Codes: R74.8 - Abnormal levels of other serum enzymes (3) Cardiomyopathy ICD Codes: I42.9 - Cardiomyopathy, unspecified (4) Nephrotic syndrome ICD Codes: N04.9 - Nephrotic syndrome with unspecified morphologic changes (5) Hypertension ICD Codes: I10 - Essential (primary) hypertension Assessment and Plan Nuc ST with no evidence of ischemia. Mild LV dysfx (EF 44%). Check echo. Continue diuresis. Continue beta norberto and ARB. Increase activity. D/w pt and his sister. Problem Qualifiers (1) Hypertension: Qualified Codes: I10 - Essential (primary) hypertension Jameson Coe MD Sep 18, 2017 08:39
[2017-09-18] MEDS ORDERED: LOSARTAN 25 MG TAB PO SCH ×2 (09:00→21:00)
[2017-09-18] MEDS ORDERED: FUROSEMIDE 40 MG TAB PO SCH (09:00)
--- NOTE | 2017-09-18 09:11 | RADRPT ---
EXAM DATE/TIME: 09/18/2017 08:47 [facility] COMPARISON: No previous studies available for comparison. INDICATIONS : Increased BUN and Creatinine. MEDICAL HISTORY : Hypercholesterolemia. Hypertension. Autoimmune Hemolytic Anemia. SURGICAL HISTORY : Cyst on forehead removed. ENCOUNTER: Initial ACUITY: 3 days PAIN SCORE: 0/10 LOCATION: Bilateral flank MEASUREMENTS: RIGHT KIDNEY: 12.2 x 6.3 x 6.1 cm LEFT KIDNEY: 11.9 x 6.2 x 6.2 cm FINDINGS: Small amount of ascites RIGHT KIDNEY: Renal cortex is normal in thickness and increased in echotexture. No hydronephrosis, stone, or mass. LEFT KIDNEY: Renal cortex is normal in thickness and increased in echotexture. No hydronephrosis, stone, or mass. BLADDER: Within normal limits given the degree of distension. CONCLUSION: Mild increased echogenicity to both kidneys. Small amount of ascites. No hydronephrosis. Chris Gerard MD on September 18, 2017 at 9:10 Board Certified Radiologist. This report was verified electronically.
[2017-09-18] MEDS: amLODIPine BESYLATE 5 MG TAB PO SCH (10:22)
[2017-09-18] MEDS: cloNIDine HCL 0.2 MG TAB PO SCH ×2 (10:23→20:56)
[2017-09-18] MEDS: SPIRONOLACTONE 50 MG TAB PO SCH (10:23)
[2017-09-18] MEDS: POTASSIUM CHLORIDE 10 MEQ CONTROLLED RELEASE TAB PO SCH ×2 (10:23→20:56)
[2017-09-18] MEDS: PRAVASTATIN SOD 40 MG TAB PO SCH (10:23)
[2017-09-18] MEDS: POTASSIUM CHLORIDE 8 MEQ CONTROLLED RELEASE TAB PO SCH ×2 (10:23→20:57)
[2017-09-18] MEDS: METOPROLOL TARTRATE 100 MG TAB PO SCH ×2 (10:24→20:56)
[2017-09-18] MEDS: ASPIRIN 81 MG CHEW TAB CHEW SCH (10:24)
--- NOTE | 2017-09-18 11:27 | HHI.NPPN ---
Subjective History of Present Illness 52 year old with Nephrotic syndrome Interval History paracentesis 10.4 L Additional Remarks edema Objective Data Data Vital Signs Date Time Temp Pulse Resp B/P (MAP) Pulse Ox O2 Delivery O2 Flow Rate FiO2 09/18/17 10:15 97.6 78 18 145/80 (101) 96 09/18/17 10:05 96 21 09/18/17 06:00 62 09/18/17 05:00 57 09/18/17 04:00 62 09/18/17 03:10 98.3 64 18 152/86 (108) 99 09/18/17 03:00 59 09/18/17 02:00 60 09/18/17 01:00 56 09/18/17 00:00 56 09/17/17 23:00 56 09/17/17 23:00 97.6 63 18 138/78 (98) 99 09/17/17 22:00 56 09/17/17 21:00 56 09/17/17 20:00 56 09/17/17 19:30 98.0 68 18 167/87 (113) 99 09/17/17 19:30 98 21 09/17/17 19:00 56 09/17/17 18:00 62 09/17/17 17:06 21 09/17/17 17:00 62 09/17/17 16:00 68 09/17/17 15:00 98.6 64 19 173/102 (125) 97 09/17/17 15:00 97 Room Air 09/17/17 15:00 62 09/17/17 11:59 97.4 60 18 157/80 (105) 100 09/17/17 11:45 97.4 54 12 161/84 (109) 100 -: 09/18/17 0721 09/18/17 0721 Physical Exam General Appearance: Well Developed, Well Nourished Neck Neck Exam: Neck Supple Pulmonary Resp Exam: Decreased Bases Cardiology CV Exam: Regular, Normal Sinus Rhythm Gastrointestinal/Abdomen GI Exam: Soft, Bowel Sounds Present Extremeties Extremities Exam: Moderate Edema, Pitting Edema Assessment/Plan Problem List: (1) Nephrotic syndrome ICD Codes: N04.9 - Nephrotic syndrome with unspecified morphologic changes Plan: Patient Continue to diurese inc Lasix 40 mg bid, and ARB was added he refused Lisinopril He follows with Dr. Moon who can follow him once discharged he will need anticoagulation Rec to add Eliquis 2.5 mg bid continue Potassium supplements. (2) Hypertension ICD Codes: I10 - Essential (primary) hypertension Plan: Plan continue with antihypertensive medication Problem Qualifiers (1) Hypertension: Qualified Codes: I10 - Essential (primary) hypertension Parvez Wise MD Sep 18, 2017 11:27
--- NOTE | 2017-09-18 11:40 | HHI.PR ---
Subjective Remarks Patient seen this morning around 8:30 AM. Says he is feeling all right. Reports improvement in severe bilateral lower extremity edema. No increase in abdominal distention. Denies any chest pain. Objective Vital Signs Date Time Temp Pulse Resp B/P (MAP) Pulse Ox O2 Delivery O2 Flow Rate FiO2 09/18/17 10:15 97.6 78 18 145/80 (101) 96 09/18/17 10:05 96 21 09/18/17 06:00 62 09/18/17 05:00 57 09/18/17 04:00 62 09/18/17 03:10 98.3 64 18 152/86 (108) 99 09/18/17 03:00 59 09/18/17 02:00 60 09/18/17 01:00 56 09/18/17 00:00 56 09/17/17 23:00 56 09/17/17 23:00 97.6 63 18 138/78 (98) 99 09/17/17 22:00 56 09/17/17 21:00 56 09/17/17 20:00 56 09/17/17 19:30 98.0 68 18 167/87 (113) 99 09/17/17 19:30 98 21 09/17/17 19:00 56 09/17/17 18:00 62 09/17/17 17:06 21 09/17/17 17:00 62 09/17/17 16:00 68 09/17/17 15:00 98.6 64 19 173/102 (125) 97 09/17/17 15:00 97 Room Air 09/17/17 15:00 62 09/17/17 11:59 97.4 60 18 157/80 (105) 100 09/17/17 11:45 97.4 54 12 161/84 (109) 100 I/O 09/17/17 09/17/17 09/17/17 09/18/17 09/18/17 09/18/17 07:00 15:00 23:00 07:00 15:00 23:00 Intake Total 440 ml 650 ml 580 ml Output Total 300 ml 600 ml Balance 140 ml 650 ml -20 ml Intake Oral 240 ml 400 ml 480 ml IV Total 200 ml 250 ml 100 ml Output Urine Total 300 ml 600 ml # Voids 2 # Bowel Movements 0 1 Result Diagram: 3/08/07 72009/18/17720 Objective Remarks GENERAL: patient lying in bed. Appears comfortable. SKIN: Warm and dry. HEAD: Normocephalic. EYES: No scleral icterus. No injection or drainage. NECK: Supple, trachea midline. No JVD. CARDIOVASCULAR: Regular rate and rhythm without murmurs, gallops, or rubs. RESPIRATORY: Breath sounds equal bilaterally. No accessory muscle use. GASTROINTESTINAL: Abdomen soft, non-tender, nondistended. MUSCULOSKELETAL: No cyanosis. Diffuse anasarca, slightly improved from yesterday. BACK: Nontender without obvious deformity. No CVA tenderness. A/P Assessment and Plan //Anasarca and ascites - Suspect that this is largely due to ascites likely secondary to proteinuria, but may possibly have additional component of undiagnosed HF given elevated trops; LFTs neg - Scheduling ultrasound-guided paracentesis - intake and output; high protein and low fluid diet - echo still pending. //Severe nephrotic syndrome. Acute on chronic Consult cardiology. Start losartan.spironolactone; hold home lasix until RF returns to baseline or baseline is established = Nephrology following. Appreciate assistance. = Continue on diuretics as per nephrology. Potassium replacement. Will increase losartan dose to twice daily. //Elevated troponin - Could be due to mildly impaired renal function, discussed with cardiology, will transfer to the main hospital tonight for possible catheterization in AM while holding off on heparin drip in light of possible paracentesis; I do not suspect isai ACS at this time - resume home BP meds including Lopressor and clonidine and aspirin - echo in AM - trending troponin = Troponin positive at 0.11. Moderate risk myocardial perfusion scan. Cardiology following. Patient without chest pain. Appreciate assistance. = Cardiology following. Echocardiogram pending. Appreciate assistance. //hypokalemia - replace K and Mg as warranted, trend in AM = Potassium 3.2 this morning. Replaced by nephrology. Continue to monitor tomorrow. SCDs for now; heparin once paracentesis fully addressed Discharge Planning pending cardiology and nephrology clearance Chauncey Alcantara MD Sep 18, 2017 11:40
[2017-09-18] MEDS ORDERED: ENALAPRILAT 1.25 MG/ML VIAL IV PUSH PRN (16:45)
--- NOTE | 2017-09-18 17:37 | ECHRPT ---
Indication: HEART FAILURE CONCLUSIONS The left ventricular systolic function is normal with an estimated ejection fraction in the range of 55-60%. Normal left ventricular size. Wall thickness is normal. No regional wall motion abnormalities are present. Trace mitral valve regurgitation. There is trace tricuspid valve regurgitation. Normal estimated pulmonary pressures. Trivial pulmonary valve regurgitation. BP: 175 / 101 HR: 67 Rhythm: Sinus MEASUREMENTS (Male / Female) Normal Values Technical Quality:Good 2D ECHO LV Diastolic Diameter PLAX 5.1 cm 4.2 - 5.9 / 3.9 - 5.3 cm LV Systolic Diameter PLAX 3.8 cm IVS Diastolic Thickness 1.1 cm 0.6 - 1.0 / 0.6 - 0.9 cm LVPW Diastolic Thickness 1.1 cm 0.6 - 1.0 / 0.6 - 0.9 cm LV Relative Wall Thickness 0.4 RV Internal Dim ED PLAX 3.4 cm LA Systolic Diameter LX 4.2 cm 3.0 - 4.0 / 2.7 - 3.8 cm LV Ejection Fraction MOD 4C 60.3 % LV Cardiac Index MOD 4C 2390.0 cm/minm LV Ejection Fraction 4C AL 62.1 % LV Cardiac Index 4C AL 2552.9 cm/minm M-MODE Aortic Root Diameter MM 2.6 cm LA Systolic Diameter MM 2.8 cm LA Ao Ratio MM 1.1 AV Cusp Separation MM 1.8 cm DOPPLER AV Peak Velocity 143.5 cm/s AV Peak Gradient 8.2 mmHg LVOT Peak Velocity 125.0 cm/s LVOT Peak Gradient 6.3 mmHg MV Area PHT 2.3 cm Mitral E Point Velocity 75.0 cm/s Mitral A Point Velocity 69.6 cm/s Mitral E to A Ratio 1.1 LV E' Lateral Velocity 9.5 cm/s Mitral E to LV E' Lateral Ratio 7.9 LV E' Septal Velocity 9.8 cm/s Mitral E to LV E' Septal Ratio 7.6 TR Peak Velocity 156.0 cm/s TR Peak Gradient 9.7 mmHg Right Atrial Pressure 10.0 mmHg Pulmonary Artery Systolic Pressu 19.7 mmHg Right Ventricular Systolic Press 19.7 mmHg PV Peak Velocity 124.0 cm/s PV Peak Gradient 6.2 mmHg FINDINGS LEFT VENTRICLE The left ventricular systolic function is normal with an estimated ejection fraction in the range of 55-60%. Normal left ventricular size. Wall thickness is normal. No regional wall motion abnormalities are present. RIGHT VENTRICLE Normal right ventricular size and systolic function. LEFT ATRIUM The left atrial size is normal. RIGHT ATRIUM The right atrial size is normal. ATRIAL SEPTUM Normal atrial septal thickness without atrial level shunting by limited color doppler interrogation. AORTA The aortic root and proximal ascending aorta are normal in size on limited imaging. MITRAL VALVE Trace mitral valve regurgitation. AORTIC VALVE Trileaflet aortic valve. No aortic valve stenosis or regurgitation. TRICUSPID VALVE Structurally normal tricuspid valve. There is trace tricuspid valve regurgitation. Normal estimated pulmonary pressures. PULMONARY VALVE Trivial pulmonary valve regurgitation. VESSELS The inferior vena cava is normal in size. PERICARDIUM No pericardial effusion. Raul Nelson MD, FACC, FSCAI (Electronically Signed) Final Date:18 September 2017 17:36
[2017-09-18] MEDS: FUROSEMIDE 40 MG TAB PO SCH (20:55)
[2017-09-18] MEDS: LOSARTAN 50 MG TAB PO SCH (20:56)
[2017-09-19] VITALS (14 sets, daily range): BP systolic 138–173; BP diastolic 78–96; PULSE 57–88; RESP 18–20; TEMP 97.9–98; O2SAT 96–99
[2017-09-19 07:28] LABS: AUTOMATED NEUTROPHIL # 7.5 TH/MM3 (1.8-7.7); BASOPHIL % 0.4 % (0.0-2.0); EOSINOPHIL # 0.6 TH/MM3 (0-0.4); EOSINOPHIL % 5.2 % (0.0-4.0); HEMATOCRIT 28.7 % (39.0-51.0); HEMOGLOBIN 9.8 GM/DL (13.0-17.0); LYMPH % 21.1 % (9.0-44.0); LYMPHOCYTE # 2.4 TH/MM3 (1.0-4.8); MEAN CELL VOLUME 86.2 FL (80.0-100.0); MEAN CORPUSCULAR HEMOGLOBIN 29.6 PG (27.0-34.0); MEAN CORPUSCULAR HGB CONC 34.3 % (32.0-36.0); MEAN PLATELET VOLUME 8.4 FL (7.0-11.0); MONO % 7.5 % (0.0-8.0); MONOCYTE # 0.9 TH/MM3 (0-0.9); NEUT % 65.8 % (16.0-70.0); PLATELET COUNT 293 TH/MM3 (150-450); RED BLOOD COUNT 3.33 MIL/MM3 (4.50-5.90); RED CELL DISTRIBUTION WIDTH 14.4 % (11.6-17.2); WHITE BLOOD COUNT 11.5 TH/MM3 (4.0-11.0)
[2017-09-19 07:48] LABS: ALBUMIN 1.3 GM/DL (3.4-5.0); BICARBONATE 25.9 MEQ/L (21.0-32.0); CREATININE 1.39 MG/DL (0.60-1.30); MAGNESIUM 1.7 MG/DL (1.5-2.5)
[2017-09-19 07:49] LABS: PHOSPHORUS 2.5 MG/DL (2.5-4.9)
[2017-09-19] MEDS: FUROSEMIDE 40 MG TAB PO SCH (09:22)
[2017-09-19] MEDS: POTASSIUM CHLORIDE 10 MEQ CONTROLLED RELEASE TAB PO SCH (09:23)
[2017-09-19] MEDS: METOPROLOL TARTRATE 100 MG TAB PO SCH (09:23)
[2017-09-19] MEDS: SPIRONOLACTONE 50 MG TAB PO SCH (09:23)
[2017-09-19] MEDS: cloNIDine HCL 0.2 MG TAB PO SCH (09:23)
[2017-09-19] MEDS: LOSARTAN 50 MG TAB PO SCH (09:23)
[2017-09-19] MEDS: PRAVASTATIN SOD 40 MG TAB PO SCH (09:23)
[2017-09-19] MEDS: ASPIRIN 81 MG CHEW TAB CHEW SCH (09:23)
[2017-09-19] MEDS: POTASSIUM CHLORIDE 8 MEQ CONTROLLED RELEASE TAB PO SCH (09:23)
[2017-09-19] MEDS: amLODIPine BESYLATE 5 MG TAB PO SCH (09:23)
[2017-09-19] MEDS ORDERED: FURO1TAB60 PO (10:38)
[2017-09-19] MEDS ORDERED: POTA10CA PO (10:38)
[2017-09-19] MEDS ORDERED: COZA50TA PO (10:38)
[2017-09-19] MEDS ORDERED: APIX2.5T PO (10:46)
--- NOTE | 2017-09-19 10:52 | HHI.PR ---
Subjective Remarks Patient says he is feeling well. Denies any chest pain or shortness of breath. Objective Vital Signs Date Time Temp Pulse Resp B/P (MAP) Pulse Ox O2 Delivery O2 Flow Rate FiO2 09/19/17 10:04 82 09/19/17 09:30 86 09/19/17 09:29 98.0 88 20 173/96 (121) 98 09/19/17 08:34 80 09/19/17 06:00 59 09/19/17 05:00 57 09/19/17 04:00 57 09/19/17 04:00 97.9 60 20 138/78 (98) 99 09/19/17 03:00 71 09/19/17 02:00 67 09/19/17 01:00 66 09/19/17 00:00 58 09/19/17 00:00 98.0 63 18 142/83 (102) 98 09/18/17 23:00 60 09/18/17 22:00 57 09/18/17 21:00 62 09/18/17 20:00 61 09/18/17 19:00 61 09/18/17 19:00 97.8 61 18 145/93 (110) 98 09/18/17 18:32 60 09/18/17 17:34 143/80 (101) 09/18/17 17:01 61 09/18/17 16:24 98.0 59 18 172/100 (124) 98 09/18/17 16:00 58 09/18/17 15:00 60 09/18/17 14:00 58 09/18/17 13:00 64 09/18/17 12:37 97.7 56 18 134/70 (91) 99 09/18/17 12:00 58 09/18/17 11:00 56 I/O 09/18/17 09/18/17 09/18/17 09/19/17 09/19/17 09/19/17 07:00 15:00 23:00 07:00 15:00 23:00 Intake Total 580 ml 360 ml 460 ml Output Total 600 ml 750 ml 800 ml Balance -20 ml -390 ml -340 ml Intake Oral 480 ml 360 ml 460 ml IV Total 100 ml Output Urine Total 600 ml 750 ml 800 ml # Bowel Movements 1 1 0 Result Diagram: 09/19/1763209/19/17632 Objective Remarks GENERAL: patient lying in bed. Appears comfortable. SKIN: Warm and dry. HEAD: Normocephalic. EYES: No scleral icterus. No injection or drainage. NECK: Supple, trachea midline. No JVD. CARDIOVASCULAR: Regular rate and rhythm without murmurs, gallops, or rubs. RESPIRATORY: Breath sounds equal bilaterally. No accessory muscle use. GASTROINTESTINAL: Abdomen soft, non-tender, nondistended. MUSCULOSKELETAL: No cyanosis. Diffuse anasarca, again slightly improved from yesterday. BACK: Nontender without obvious deformity. No CVA tenderness. A/P Assessment and Plan //Anasarca and ascites - Suspect that this is largely due to ascites likely secondary to proteinuria, but may possibly have additional component of undiagnosed HF given elevated trops; LFTs neg -Status post ultrasound-guided paracentesis - intake and output; high protein and low fluid diet - echo with EF 55%. = Follow-up with cardiology as outpatient //Severe nephrotic syndrome. Acute on chronic Consult cardiology. Start losartan.spironolactone; hold home lasix until RF returns to baseline or baseline is established = Nephrology following. Appreciate assistance. = Continue on diuretics as per nephrology. Potassium replacement. = Continue twice daily losartan. //Elevated troponin - Could be due to mildly impaired renal function, discussed with cardiology, will transfer to the [facility] hospital tonight for possible catheterization in AM while holding off on heparin drip in light of possible paracentesis; I do not suspect isai ACS at this time - resume home BP meds including Lopressor and clonidine and aspirin - echo in AM - trending troponin = Troponin positive at 0.11. Moderate risk myocardial perfusion scan. Cardiology following. Patient without chest pain. Appreciate assistance. = Cardiology following. Echocardiogram pending. Appreciate assistance. //hypokalemia - replace K and Mg as warranted, trend in AM = Potassium 3.2 this morning. continue replacement. Continue to monitor tomorrow. SCDs , eliquis Discharge Planning [facility] Chauncey Alcantara MD Sep 19, 2017 10:52
--- NOTE | 2017-09-19 11:08 | HHI.DS ---
Discharge Summary Admission Date Sep 16, 2017 at 18:24 Discharge Date: Sep 19, 2017 Admitting Diagnosis Ascites (1) Elevated troponin ICD Code: R74.8 - Abnormal levels of other serum enzymes (2) Hypertension ICD Code: I10 - Essential (primary) hypertension (3) Nephrotic syndrome ICD Code: N04.9 - Nephrotic syndrome with unspecified morphologic changes Procedures Abdominal paracentesis Brief History - From Admission 52-year-old male being admitted for abdominal distention and scrotal edema Patient was in his usual state of health until over the last 2-3 weeks he began noticing scrotal edema as well as worsening lower extremity edema. He says the edema was intermittent and would fluctuate. However it has progressed within the past few days and he want to go see his primary care provider who then referred him to the emergency department. Patient also notes that his abdomen overall has become more distended than usual. Patient denies having any chest pain. He reports being just mildly short of breath which he attributes to his large abdomen. He reports having more difficulty lying flat in the past few days. In the [place] emergency department he was noted to have stable vital signs. UA substantial proteinuria. EKG showed NSR. CXR showed no acute pulmonic infiltrates. ER doc suspected pt's SOB was due to his ascites. BNP was 249. CBC/BMP: 09/19/17 0633 09/19/17 0633 Significant Findings Laboratory Tests Test 09/16/17 19:10 09/17/17 03:19 09/17/17 10:50 09/17/17 18:18 Troponin I 0.11 NG/ML (0.02-0.05) 0.11 NG/ML (0.02-0.05) Peritoneal Fluid WBC 239 /MM3 (0-10) Peritoneal Fluid RBC 162 /MM3 (0-0) White Blood Count 13.4 TH/MM3 (4.0-11.0) Red Blood Count 3.59 MIL/MM3 (4.50-5.90) Hemoglobin 10.5 GM/DL (13.0-17.0) Hematocrit 31.1 % (39.0-51.0) Eosinophils (%) (Auto) 4.7 % (0.0-4.0) Neutrophils # (Auto) 9.1 TH/MM3 (1.8-7.7) Eosinophils # (Auto) 0.6 TH/MM3 (0-0.4) Creatinine 1.40 MG/DL (0.60-1.30) Total Protein 4.3 GM/DL (6.4-8.2) Albumin 0.8 GM/DL (3.4-5.0) Calcium Level 7.7 MG/DL (8.5-10.1) Alanine Aminotransferase (ALT/SGPT) 10 U/L (12-78) Sodium Level 147 MEQ/L (136-145) Potassium Level 2.9 MEQ/L (3.5-5.1) Chloride Level 111 MEQ/L (98-107) Estimat Glomerular Filtration Rate 54 ML/MIN (>89) Test 09/18/17 01:35 09/18/17 07:21 09/19/17 06:33 Urine Protein GREATER THAN 600 mg/dL Urine Glucose (UA) 150 mg/dL (NEG) Urine Occult Blood SMALL (NEG) Urine Mucus FEW /lpf (OCC) Urine Random Total Protein 1581 MG/DL (0-11.8) Urine Protein/Creatinine Ratio 15.97 (0.00-0.14) Red Blood Count 2.84 MIL/MM3 (4.50-5.90) 3.33 MIL/MM3 (4.50-5.90) Hemoglobin 8.6 GM/DL (13.0-17.0) 9.8 GM/DL (13.0-17.0) Hematocrit 24.2 % (39.0-51.0) 28.7 % (39.0-51.0) Eosinophils (%) (Auto) 5.2 % (0.0-4.0) 5.2 % (0.0-4.0) Eosinophils # (Auto) 0.5 TH/MM3 (0-0.4) 0.6 TH/MM3 (0-0.4) Creatinine 1.33 MG/DL (0.60-1.30) 1.39 MG/DL (0.60-1.30) Albumin 1.5 GM/DL (3.4-5.0) 1.3 GM/DL (3.4-5.0) Calcium Level 7.7 MG/DL (8.5-10.1) 8.0 MG/DL (8.5-10.1) Sodium Level 146 MEQ/L (136-145) Potassium Level 3.2 MEQ/L (3.5-5.1) 3.2 MEQ/L (3.5-5.1) Chloride Level 111 MEQ/L (98-107) 110 MEQ/L (98-107) Estimat Glomerular Filtration Rate 57 ML/MIN (>89) 54 ML/MIN (>89) HDL Cholesterol 39.4 MG/DL (40.0-60.0) White Blood Count 11.5 TH/MM3 (4.0-11.0) Imaging Last Impressions Renal Ultrasound 09/18/17 0000 Signed Impressions: Service Date/Time: September 08:47 - CONCLUSION: Mild increased echogenicity to both kidneys. Small amount of ascites. No hydronephrosis. Chris Gerard MD Cyst Biopsy Asp-Paracentesis US 09/17/17 0700 Signed Impressions: Service Date/Time: Sunday, September 17, 2017 08:34 - CONCLUSION: Uncomplicated ultrasound guided paracentesis. Fluid was sent for studies. Dominick Thorne MD FACR Myocardial Perfusion Scan Nuc Med 09/17/17 0000 Signed Impressions: Service Date/Time: Sunday, September 17, 2017 13:05 - CONCLUSION: No reversible perfusion abnormalities. Moderate LV dysfunction. RISK CATEGORY: Intermediate (1-3%% Annual Mortality Rate) Jesse Mahan MD Hospital Course Patient underwent abdominal paracentesis. Please see report. Albumin was given after this procedure. Much improvement in the abdominal distention. Patient had elevated troponin up to 0.11. Cardiology was consulted. Myocardial perfusion scan with no reversible perfusion abnormalities. Echocardiogram with ejection fraction 55-60%. Nephrology was consulted due to hypokalemia and nephrotic syndrome. Will increase potassium supplementation. Have also added losartan twice daily for treatment of nephrotic syndrome. Patient will need a follow-up with nephrology , primary care, cardiology as outpatient. For problem based summary from most recent progress note, please see below. //Anasarca and ascites - Suspect that this is largely due to ascites likely secondary to proteinuria, but may possibly have additional component of undiagnosed HF given elevated trops; LFTs neg -Status post ultrasound-guided paracentesis - intake and output; high protein and low fluid diet - echo with EF 55%. = Follow-up with cardiology as outpatient //Severe nephrotic syndrome. Acute on chronic Consult cardiology. Start losartan.spironolactone; hold home lasix until RF returns to baseline or baseline is established = Nephrology following. Appreciate assistance. = Continue on diuretics as per nephrology. Potassium replacement. = Continue twice daily losartan. //Elevated troponin - Could be due to mildly impaired renal function, discussed with cardiology, will transfer to the [facility] for possible catheterization in AM while holding off on heparin drip in light of possible paracentesis; I do not suspect isai ACS at this time - resume home BP meds including Lopressor and clonidine and aspirin - echo in AM - trending troponin = Troponin positive at 0.11. Moderate risk myocardial perfusion scan. Cardiology following. Patient without chest pain. Appreciate assistance. = Cardiology following. Echocardiogram pending. Appreciate assistance. //hypokalemia - replace K and Mg as warranted, trend in AM = Potassium 3.2 this morning. continue replacement. Continue to monitor tomorrow. SCDs , eliquis Pt Condition on Discharge: Good Discharge Disposition: Discharge Home Discharge Time: > 30 minutes Discharge Instructions DIET: Follow Instructions for: As Tolerated, No Restrictions Activities you can perform: Regular-No Restrictions Follow up Referrals: Cardiology - 2 Weeks with Jameson Coe MD Nephrology - 1 Week with Parvez Wise MD PCP Follow-up - 1 Week New Medications: Apixaban (Eliquis) 2.5 Mg Tab 2.5 MG PO BID for Blood Clot Prevention for 30 Days, #60 TAB Losartan (Cozaar) 50 Mg Tab 50 MG PO BID for Blood Pressure Management for 30 Days, #60 TAB Changed Medications: Furosemide (Lasix) 40 Mg Tab 60 MG PO BID for Blood Pressure Management for 30 Days, #90 TAB 0 Refills ( Changed from: DAILY; 30) Potassium Chloride ER (Potassium Chloride ER) 10 Meq Cap 10 MEQ PO TID for Electrolyte Replacement, #60 CAP 0 Refills (Changed from: BID) Continued Medications: Amlodipine (Amlodipine) 5 Mg Tab 5 MG PO DAILY for Blood Pressure Management, #30 TAB 0 Refills Aspirin (Aspirin) 81 Mg Chew 81 MG CHEW DAILY, TAB 0 Refills Calcium Carbonate/Vitamin D3 (Calcium 500 + Vit D Caplet) 500 Mg-125 Tablet Clonidine (Clonidine) 0.2 Mg Tab 0.2 MG PO BID for Blood Pressure Management, #60 TAB 0 Refills Lovastatin (Lovastatin) 40 Mg Tab 40 MG PO DAILY for Cholesterol Management, #30 TAB 0 Refills Metoprolol Tartrate (Metoprolol Tartrate) 100 Mg Tab 100 MG PO BID, #60 TAB 0 Refills Spironolactone (Spironolactone) 50 Mg Tab 50 MG PO DAILY, #30 TAB 0 Refills Discontinued Medications: Lisinopril (Lisinopril) 20 Mg Tab 20 MG PO BID, #30 TAB 0 Refills Chauncey Alcantara MD Sep 19, 2017 11:08
--- NOTE | 2017-09-19 12:27 | PD.CARD.PN ---
Subjective Subjective Remarks No CP or SOB, edema improving Objective Medications Current Medications Medications (Trade) Dose Ordered Sig/Devan Route Start Time Stop Time Status Last Admin (Pravachol) 40 mg DAILY PO 09/17/17 09:00 09/19/17 09:23 (Lopressor) 100 mg BID PO 09/16/17 21:00 09/19/17 09:23 (KCl) 10 meq BID PO 09/16/17 21:00 09/19/17 09:23 (Aldactone) 50 mg DAILY PO 09/17/17 09:00 09/19/17 09:23 (Catapres) 0.2 mg BID PO 09/16/17 21:00 09/19/17 09:23 (Heparin Inj) 5,000 units Q12HR SQ 09/16/17 21:00 Future Hold 09/16/17 20:00 (Aspirin Chew) 81 mg DAILY CHEW 09/17/17 09:00 09/19/17 09:23 (Norvasc) 5 mg DAILY PO 09/17/17 09:00 09/19/17 09:23 (KCl) 16 meq Q12HR PO 09/18/17 09:00 09/19/17 09:23 (Lasix) 40 mg BID PO 09/18/17 21:00 09/19/17 09:22 (Cozaar) 50 mg BID PO 09/18/17 21:00 09/19/17 09:23 (Vasotec Inj) 1.25 mg Q6H PRN IV PUSH 09/18/17 16:45 (Eliquis) 2.5 mg BID PO 09/19/17 21:00 Vital Signs / I&O Vital Signs Date Time Temp Pulse Resp B/P (MAP) Pulse Ox O2 Delivery O2 Flow Rate FiO2 09/19/17 11:38 98.0 60 18 158/84 (108) 96 09/19/17 11:10 78 09/19/17 10:05 98 21 09/19/17 10:04 82 09/19/17 09:30 86 09/19/17 09:29 98.0 88 20 173/96 (121) 98 09/19/17 08:34 80 09/19/17 06:00 59 09/19/17 05:00 57 09/19/17 04:00 57 09/19/17 04:00 97.9 60 20 138/78 (98) 99 09/19/17 03:00 71 09/19/17 02:00 67 09/19/17 01:00 66 09/19/17 00:00 58 09/19/17 00:00 98.0 63 18 142/83 (102) 98 09/18/17 23:00 60 09/18/17 22:00 57 09/18/17 21:00 62 09/18/17 20:00 61 09/18/17 19:00 61 09/18/17 19:00 97.8 61 18 145/93 (110) 98 09/18/17 18:32 60 09/18/17 17:34 143/80 (101) 09/18/17 17:01 61 09/18/17 16:24 98.0 59 18 172/100 (124) 98 09/18/17 16:00 58 09/18/17 15:00 60 09/18/17 14:00 58 09/18/17 13:00 64 09/18/17 12:37 97.7 56 18 134/70 (91) 99 I/O 09/18/17 09/18/17 09/18/17 09/19/17 09/19/17 09/19/17 07:00 15:00 23:00 07:00 15:00 23:00 Intake Total 580 ml 360 ml 460 ml Output Total 600 ml 750 ml 800 ml Balance -20 ml -390 ml -340 ml Intake Oral 480 ml 360 ml 460 ml IV Total 100 ml Output Urine Total 600 ml 750 ml 800 ml # Bowel Movements 1 1 0 Physical Exam GENERAL: In NAD SKIN: Warm and dry. HEAD: Normocephalic. EYES: No scleral icterus. No injection or drainage. NECK: Supple, trachea midline. No JVD or lymphadenopathy. CARDIOVASCULAR: Regular rate and rhythm without murmurs, gallops, or rubs. RESPIRATORY: Breath sounds equal bilaterally. No accessory muscle use. GASTROINTESTINAL: Abdomen soft, non-tender. MUSCULOSKELETAL: No cyanosis, bilat LE edema. Laboratory Laboratory Tests Test 09/19/17 06:33 White Blood Count 11.5 TH/MM3 Red Blood Count 3.33 MIL/MM3 Hemoglobin 9.8 GM/DL Hematocrit 28.7 % Mean Corpuscular Volume 86.2 FL Mean Corpuscular Hemoglobin 29.6 PG Mean Corpuscular Hemoglobin Concent 34.3 % Red Cell Distribution Width 14.4 % Platelet Count 293 TH/MM3 Mean Platelet Volume 8.4 FL Neutrophils (%) (Auto) 65.8 % Lymphocytes (%) (Auto) 21.1 % Monocytes (%) (Auto) 7.5 % Eosinophils (%) (Auto) 5.2 % Basophils (%) (Auto) 0.4 % Neutrophils # (Auto) 7.5 TH/MM3 Lymphocytes # (Auto) 2.4 TH/MM3 Monocytes # (Auto) 0.9 TH/MM3 Eosinophils # (Auto) 0.6 TH/MM3 Basophils # (Auto) 0.0 TH/MM3 CBC Comment DIFF FINAL Differential Comment Blood Urea Nitrogen 14 MG/DL Creatinine 1.39 MG/DL Random Glucose 74 MG/DL Albumin 1.3 GM/DL Calcium Level 8.0 MG/DL Phosphorus Level 2.5 MG/DL Magnesium Level 1.7 MG/DL Sodium Level 145 MEQ/L Potassium Level 3.2 MEQ/L Chloride Level 110 MEQ/L Carbon Dioxide Level 25.9 MEQ/L Anion Gap 9 MEQ/L Estimat Glomerular Filtration Rate 54 ML/MIN Assessment and Plan Problem List: (1) Anasarca ICD Codes: R60.1 - Generalized edema (2) Elevated troponin ICD Codes: R74.8 - Abnormal levels of other serum enzymes (3) Cardiomyopathy ICD Codes: I42.9 - Cardiomyopathy, unspecified (4) Nephrotic syndrome ICD Codes: N04.9 - Nephrotic syndrome with unspecified morphologic changes (5) Hypertension ICD Codes: I10 - Essential (primary) hypertension Assessment and Plan Nuclear ST with no evidence of ischemia. Echo with normal LV systolic function. Continue diuresis. Continue current program. Increase activity. DC home. F/u with PCP and his sales engagement manager next week. Problem Qualifiers (1) Hypertension: Qualified Codes: I10 - Essential (primary) hypertension Jameson Coe MD Sep 19, 2017 12:27
[2017-09-19] MEDS ORDERED: APIXABAN 2.5 MG TABLET PO SCH (21:00)
== END 2017-09-19 13:45 | disposition home or self-care (01) | DRG 699 ==
LOC: PHEDDLT 18:23 → PH3B 18:24 → HCVI 21:48 → HCIS 09-17 07:35
PROVIDERS: ADMIT Internal Medicine; ATTEND Internal Medicine
PROC: 0W9G3ZX Drainage of Peritoneal Cavity, Percutaneous Approach, Diagnostic (ICD-10-PCS; principal; 2017-09-17)
DX: N04.9 Nephrotic syndrome with unspecified morphologic changes (principal); R18.8 Other ascites; N17.9 Acute kidney failure, unspecified; I42.9 Cardiomyopathy, unspecified; E87.6 Hypokalemia; R74.8 Abnormal levels of other serum enzymes; I10 Essential (primary) hypertension; F17.200 Nicotine dependence, unspecified, uncomplicated
CPT/HCPCS: 49083; 76775; 78452; 80053; 80061; 80069; 81001; 82042; 82570; 82945; 83735; 84156; 84157; 84484; 85025; 86021; 86038; 86160; 87070; 87205; 88112; 89051; 93005; 93017; 93306; A9502; C1729; J1644; J2785; J3475; P9047

== ENCOUNTER 2017-10-09 06:21 | Day surgery (SDC) | payer OTHER ==
[2017-10-09] VITALS (9 sets, daily range): BP systolic 154–179; BP diastolic 71–109; PULSE 68–81; RESP 18–20; TEMP 97.7–98; O2SAT 90–96
[~2017-10-09] VITALS: Ht 177.8 cm; Wt 106.5 kg
[~2017-10-09 06:21] MED LIST changes: +APIX2.5T PO; +COZA50TA PO; -LISI-515 PO
[2017-10-09] MEDS ORDERED: DICY10CA12 PO (06:51)
[2017-10-09] MEDS ORDERED: FERR200T PO (06:51)
[2017-10-09] MEDS ORDERED: HAEM0.25 IM (06:51)
[2017-10-09] MEDS ORDERED: SODIUM CHLOR 0.9% 1000 ML INJ 1,000 ML IV SCH (07:15)
[2017-10-09] MEDS ORDERED: LIDOCAINE 1%/EPINEPHrine 1:100,000 SOLN 50 ML VIAL ONE (08:37)
[2017-10-09] MEDS ORDERED: MIDAZOLAM HCL 2 MG/2 ML VIAL ONE ×2 (08:49→09:18)
--- NOTE | 2017-10-09 09:21 | RADRPT ---
EXAM DATE/TIME: 10/09/2017 08:23 [facility] COMPARISON: No previous studies available for comparison. INDICATIONS : Patient in need of peripheral intravenous access placement for medication admission. MEDICAL HISTORY : HTN Cardiomyopathy Nephrotic syndrome Psoriasis SURGICAL HISTORY : Paracentesis Cyst removal(skin) ENCOUNTER: Initial ACUITY: 1 day PAIN SCORE: 0/10 LOCATION: N/A IMAGE SERIES: 1 ACCESS: Right basilic vein DEVICE(S): 1.) 3/4 [place]ander Dilator PROCEDURE : 1. Ultrasound guided venous access. The risks, benefits and alternatives to the procedure were explained and verbal and written consent w as obtained. The site was prepped in sterile fashion. Full sterile technique was used, including ca p, mask, sterile gloves and gown and a large sterile sheet. Hand hygiene and 2% chlorhexidine and/or betadine/alcohol prep was utilized per protocol for cutaneous antisepsis. Sterile gel and sterile p robe cover were utilized for ultrasound guidance. The skin and subcutaneous tissues were infiltrate d with local anesthetic solution. With ultrasound guidance the prescribed vein was punctured for venous access. A 4 [place] dilator was placed and was flushed and locked with heparin. The patient tolerated procedure well and there were n o complications. CONCLUSION: Uncomplicated ultrasound guided venous access. Tenzin Harris MD on October 09, 2017 at 9:18 Board Certified Radiologist. This report was verified electronically.
[2017-10-09] MEDS ORDERED: HYDROmorphone HCL 2 MG TAB PO PRN (09:45)
--- NOTE | 2017-10-09 10:02 | RADRPT ---
EXAM DATE/TIME: 10/09/2017 09:11 [facility] COMPARISON: No previous studies available for comparison. INDICATIONS : Nephrotic Syndrome. SEDATION TIME: 15 minutes BIOPSY SITE: Left Renal MEDICATION(S): 1.) 3.5 mg midazolam (Versed) IV 2.) 175 mcg fentanyl (Sublimaze) IV DEVICE(S): 1.) 18 gauge Temno core biopsy needle 6cm MEDICAL HISTORY : Chronic renal disease, anemia. SURGICAL HISTORY : None. ENCOUNTER: Initial ACUITY: 1 day PAIN SCORE: 0/10 LOCATION: Left flank A total of one core specimen(s) were obtained and sent to the laboratory for pathologic evaluation. PROCEDURE: 1. CT guided renal biopsy. 2. Conscious sedation with continuous EKG and oximetry monitoring. Prior to the procedure informed consent was obtained. Any appropriate prior imaging studies were rev iewed. Using automated exposure control and adjustment of the mA and/or kV according to patient size, radiat ion dose was kept as low as reasonably achievable to obtain optimal diagnostic quality images. DICOM format image data is available electronically for review and comparison. The site was prepped in a sterile fashion. Full sterile technique was used, including cap, mask, misty rile gloves and gown and a large sterile sheet. Hand hygiene and 2% chlorhexidine and/or betadine/al cohol prep was utilized per protocol for cutaneous antisepsis. The skin and subcutaneous tissues wer e infiltrated with local anesthetic solution. With CT guidance the previously identified target was localized. Biopsy was performed using the presc ribed needle as above. Adequate hemostasis was obtained with compression at the puncture site. Follow-up CT scan reveals no hemorrhage. The patient tolerated the procedure well and there were no complications. The patient was returned to the Radiology Outpatient Unit in stable condition. CONCLUSION: Uncomplicated CT guided biopsy. Jesse Mahan MD on October 09, 2017 at 9:59 Board Certified Radiologist. This report was verified electronically.
[2017-10-09 10:10] LABS: AUTOMATED NEUTROPHIL # 13.4 TH/MM3 (1.8-7.7); BASOPHIL # 0.1 TH/MM3 (0-0.2); BASOPHIL % 0.4 % (0.0-2.0); HEMATOCRIT 32.4 % (39.0-51.0); LYMPH % 8.1 % (9.0-44.0); LYMPHOCYTE # 1.2 TH/MM3 (1.0-4.8); MEAN CELL VOLUME 85.2 FL (80.0-100.0); MEAN CORPUSCULAR HEMOGLOBIN 28.9 PG (27.0-34.0); MEAN CORPUSCULAR HGB CONC 33.9 % (32.0-36.0); MEAN PLATELET VOLUME 7.6 FL (7.0-11.0); MONO % 1.9 % (0.0-8.0); MONOCYTE # 0.3 TH/MM3 (0-0.9); NEUT % 89.6 % (16.0-70.0); PLATELET COUNT 405 TH/MM3 (150-450); RED CELL DISTRIBUTION WIDTH 14.7 % (11.6-17.2); WHITE BLOOD COUNT 14.9 TH/MM3 (4.0-11.0)
[2017-10-09] MEDS ORDERED: PILL SPLITTER OTHER PRN (10:30)
[2017-10-09 12:24] LABS: BASOPHIL % 0.3 % (0.0-2.0); HEMATOCRIT 31.2 % (39.0-51.0); HEMOGLOBIN 10.5 GM/DL (13.0-17.0); LYMPHOCYTE # 0.9 TH/MM3 (1.0-4.8); MEAN CELL VOLUME 85.4 FL (80.0-100.0); MEAN CORPUSCULAR HEMOGLOBIN 28.8 PG (27.0-34.0); MEAN CORPUSCULAR HGB CONC 33.7 % (32.0-36.0); MONOCYTE # 0.4 TH/MM3 (0-0.9); NEUT % 89.7 % (16.0-70.0); PLATELET COUNT 359 TH/MM3 (150-450); RED BLOOD COUNT 3.66 MIL/MM3 (4.50-5.90); WHITE BLOOD COUNT 13.4 TH/MM3 (4.0-11.0)
== END 2017-10-09 15:25 | disposition home or self-care (01) ==
LOC: HRAD 06:21 → HRIP 06:25 → HRAD 15:25
PROVIDERS: ATTEND Psychiatry & Neurology Clinical Neurophysiology
DX: N18.2 Chronic kidney disease, stage 2 (mild) (principal); D63.1 Anemia in chronic kidney disease; I12.9 Hypertensive chronic kidney disease with stage 1 through stage 4 chronic kidney disease, or unspecified chronic kidney disease; I42.9 Cardiomyopathy, unspecified; E78.5 Hyperlipidemia, unspecified
CPT/HCPCS: 36410; 50200; 76937; 77012; 85025; J2250; J3010; J7030

== ENCOUNTER 2017-11-05 14:56 | Inpatient (IN) | payer OTHER ==
[~2017-11-05] VITALS: Ht 177.8 cm; Wt 94.6 kg
[~2017-11-05 14:56] MED LIST changes: +DICY10CA12 PO; +FERR200T PO; +HAEM0.25 IM
[2017-11-05 15:03] VITALS: BP 207/100; PULSE 83; RESP 17; TEMP 97.8; O2SAT 98
--- NOTE | 2017-11-05 15:59 | PD ---
HPI Chief Complaint: Abdominal Pain Time Seen by Provider: 15:22 Travel History International Travel<30 days: No Contact w/Intl Traveler<30days: No Traveled to known affect area: No History of Present Illness HPI 52-year-old male complains of shortness of breath, abdominal distention. Patient has history of nephrotic syndrome and recurrent abdominal ascites. Patient states that he has increased shortness of breath and abdominal distention recently. Patient denies any headache. Patient denies any chest pain. Patient states that he has shortness of breath and wheezing. Patient denies any nausea vomiting diarrhea. Patient states that he has been incontinence of urine. Patient has been seen by security compliance specialist. Last visit with this morning. Patient was advised to go to [facility] to be admitted for IV diuresis, acute renal failure and nephrotic syndrome. Patient also has history of colon polyps, cardiomyopathy, chronic elevated troponin, hypertension , autoimmune hemolytic anemia, psoriasis, hyperlipidemia. Patient recently had kidney biopsy which shows focal segmental glomerulosclerosis, global glomerulosclerosis, interstitial fibrosis and tubular atrophy. Patient was seen by his security compliance specialist today and advised to go to ED to be admitted. PFSH Past Medical History Autoimmune Disease: Yes (AUTIMMUNE HEMOLYTIC ANEMIA) Cancer: No Cardiovascular Problems: Yes (TRICUSPID REGURGITATION, cardiomyopathy) High Cholesterol: Yes Diabetes: No Endocrine: No Genitourinary: Yes (GERD) Hiatal Hernia: No Hypertension: Yes Immune Disorder: No Musculoskeletal: No Psychiatric: Yes Respiratory: No Immunizations Current: Yes Sickle Cell Disease: No Thyroid Disease: No Past Surgical History Abdominal Surgery: Yes (Ascities, paracentesis) AICD: No Cardiac Surgery: No Ear Surgery: No Eye Surgery: No Genitourinary Surgery: No Gynecologic Surgery: No Insulin Pump: No Joint Replacement: No Oral Surgery: No Pacemaker: No Thoracic Surgery: No Social History Alcohol Use: No Tobacco Use: Yes (1/2 PPD ) Substance Use: No Allergies-Medications (Allergen,Severity, Reaction): Coded Allergies: No Known Allergies (Unverified , 10/09/17) Reported Meds & Prescriptions Reported Meds & Active Scripts Active Eliquis (Apixaban) 2.5 Mg Tab 2.5 Mg PO BID 30 Days Cozaar (Losartan Potassium) 50 Mg Tab 50 Mg PO BID 30 Days Lasix (Furosemide) 40 Mg Tab 60 Mg PO BID 30 Days Potassium Chloride ER (Potassium Chloride) 10 Meq Cap 10 Meq PO TID Reported Dicyclomine (Dicyclomine HCl) 10 Mg Cap 10 Mg PO Q4-6H PRN Feosol (Ferrous Sulfate) 325 Mg (65 Mg Iron) Tab 325 Mg PO DAILY Acthib Inj (Haemophilus B Polysac Conj Vacc Inj) 0.5 Ml Vial 0.5 Ml IM .ONCE Spironolactone 50 Mg Tab 50 Mg PO DAILY Clonidine (Clonidine HCl) 0.2 Mg Tab 0.2 Mg PO BID Amlodipine (Amlodipine Besylate) 5 Mg Tab 5 Mg PO DAILY Metoprolol Tartrate 100 Mg Tab 100 Mg PO BID Aspirin 81 Mg Chew 81 Mg CHEW DAILY Lovastatin 40 Mg Tab 40 Mg PO DAILY Calcium 500 + Vit D Caplet (Calcium Carbonate/Vitamin D3) 500 Mg-125 Tablet Review of Systems General / Constitutional: No: Fever Eyes: No: Visual changes HENT: No: Headaches Cardiovascular: No: Chest Pain or Discomfort Respiratory: Positive: Shortness of Breath Gastrointestinal: Positive: Abdominal Pain Genitourinary: No: Dysuria Musculoskeletal: No: Pain Skin: No Rash Neurologic: No: Weakness Psychiatric: No: Depression Endocrine: No: Polydipsia Hematologic/Lymphatic: No: Easy Bruising Physical Exam Narrative GENERAL: Well-nourished, well-developed patient. SKIN: Focused skin assessment warm/dry. HEAD: Normocephalic. EYES: No scleral icterus. No injection or drainage. NECK: Supple, trachea midline. No JVD or lymphadenopathy. CARDIOVASCULAR: Regular rate and rhythm without murmurs, gallops, or rubs. RESPIRATORY: Breath sounds equal bilaterally. No accessory muscle use. Patient has mild expiratory wheezes. Patient had few rhonchi at the bases. GASTROINTESTINAL: Abdomen distended. Mild diffuse tenderness over the abdomen. Active bowel sounds. MUSCULOSKELETAL: No cyanosis, or edema. BACK: Nontender without obvious deformity. No CVA tenderness. Neurologic exam normal. Data Data Last Documented VS Vital Signs Date Time Temp Pulse Resp B/P (MAP) Pulse Ox O2 Delivery O2 Flow Rate FiO2 11/05/17 15:03 97.8 83 17 207/100 (135) 98 Orders Orders Electrocardiogram (11/05/17 15:38) Complete Blood Count With Diff (11/05/17 15:38) Comprehensive Metabolic Panel (11/05/17 15:38) B-Type Natriuretic Peptide (11/05/17 15:38) Prothrombin Time / Inr (Pt) (11/05/17 15:38) Act Partial Throm Time (Ptt) (11/05/17 15:38) Urinalysis - C+S If Indicated (11/05/17 15:38) Magnesium (Mg) (11/05/17 15:38) Phosphorus (Po4) (11/05/17 15:38) Chest, Single Ap (11/05/17 15:38) Ct Abd/Pel W/O Iv Contrast (11/05/17 15:38) Iv Access Insert/Monitor (11/05/17 15:38) Ecg Monitoring (11/05/17 15:38) Oximetry (11/05/17 15:38) Labs Laboratory Tests Test 11/05/17 16:00 White Blood Count 13.9 TH/MM3 Red Blood Count 3.16 MIL/MM3 Hemoglobin 9.2 GM/DL Hematocrit 27.2 % Mean Corpuscular Volume 86.1 FL Mean Corpuscular Hemoglobin 29.2 PG Mean Corpuscular Hemoglobin Concent 33.9 % Red Cell Distribution Width 14.4 % Platelet Count 344 TH/MM3 Mean Platelet Volume 7.7 FL Neutrophils (%) (Auto) 61.9 % Lymphocytes (%) (Auto) 22.0 % Monocytes (%) (Auto) 7.4 % Eosinophils (%) (Auto) 8.1 % Basophils (%) (Auto) 0.6 % Neutrophils # (Auto) 8.6 TH/MM3 Lymphocytes # (Auto) 3.1 TH/MM3 Monocytes # (Auto) 1.0 TH/MM3 Eosinophils # (Auto) 1.1 TH/MM3 Basophils # (Auto) 0.1 TH/MM3 CBC Comment DIFF FINAL Differential Comment Prothrombin Time 10.4 SEC Prothromb Time International Ratio 1.0 RATIO Activated Partial Thromboplast Time 27.9 SEC Blood Urea Nitrogen 14 MG/DL Creatinine 1.66 MG/DL Random Glucose 81 MG/DL Total Protein 4.3 GM/DL Albumin 0.9 GM/DL Calcium Level 7.6 MG/DL Phosphorus Level 2.8 MG/DL Magnesium Level 1.6 MG/DL Alkaline Phosphatase 98 U/L Aspartate Amino Transf (AST/SGOT) 22 U/L Alanine Aminotransferase (ALT/SGPT) 11 U/L Total Bilirubin LESS THAN 0.1 MG/DL Sodium Level 148 MEQ/L Potassium Level 3.1 MEQ/L Chloride Level 114 MEQ/L Carbon Dioxide Level 29.2 MEQ/L Anion Gap 5 MEQ/L Estimat Glomerular Filtration Rate 44 ML/MIN B-Type Natriuretic Peptide 297 PG/ML MDM Medical Decision Making Medical Screen Exam Complete: Yes Emergency Medical Condition: Yes Medical Record Reviewed: Yes Interpretation(s) Last Impressions Chest X-Ray 11/05/17 1538 Signed Impressions: Service Date/Time: Sunday, November 05, 2017 16:06 - CONCLUSION: No acute disease. Dominick Thorne MD FACR Abdomen/Pelvis CT 11/05/17 1538 Signed Impressions: Service Date/Time: Sunday, November 05, 2017 16:17 - CONCLUSION: Significant ascites umbilical hernia and right hydrocele Small shrunken liver suggesting hepatocellular disease. Dominick Thorne MD FACR 1654 PM. CBC WBC 13.9. Hemoglobin 9.2 hematocrit 27.2. Normal differential. Sodium 148. Potassium 3.1. Chloride 114. Bicarb 29.2. BUN 14. Creatinine 1.66. GFR 44. Total bili less than 0.1. Differential Diagnosis Differential diagnosis including acute exacerbation of nephrotic syndrome, acute exacerbation of renal failure, acute exacerbation ascites, reactive airway disease, CHF. Narrative Course 52-year-old male with shortness of breath, abdominal distention. History of nephrotic syndrome. Diagnosis Primary Impression: Nephrotic syndrome Additional Impressions: Ascites Qualified Codes: R18.8 - Other ascites Acute renal failure superimposed on chronic kidney disease Qualified Codes: N17.9 - Acute kidney failure, unspecified; N18.3 - Chronic kidney disease, stage 3 (moderate) Admitting Information Admitting Physician Requests: Admit Tony Beltran MD Nov 05, 2017 15:59
--- NOTE | 2017-11-05 16:24 | RADRPT ---
EXAM DATE/TIME: 11/05/2017 16:06 [facility] COMPARISON: No previous studies available for comparison. INDICATIONS : Shortness of breath. Patient here for possible abdominal fluid retention. MEDICAL HISTORY : None. SURGICAL HISTORY : None. ENCOUNTER: Initial ACUITY: 2 days PAIN SCORE: 0/10 LOCATION: chest FINDINGS: A single view of the chest demonstrates the lungs to be symmetrically aerated without evidence of mas s, infiltrate or effusion. The cardiomediastinal contours are unremarkable. Osseous structures are intact. CONCLUSION: No acute disease. Dominick Thorne MD FACR on November 05, 2017 at 16:22 Board Certified Radiologist. This report was verified electronically.
[2017-11-05 16:29] LABS: AUTOMATED NEUTROPHIL # 8.6 TH/MM3 (1.8-7.7); BASOPHIL # 0.1 TH/MM3 (0-0.2); BASOPHIL % 0.6 % (0.0-2.0); EOSINOPHIL # 1.1 TH/MM3 (0-0.4); EOSINOPHIL % 8.1 % (0.0-4.0); HEMATOCRIT 27.2 % (39.0-51.0); HEMOGLOBIN 9.2 GM/DL (13.0-17.0); LYMPHOCYTE # 3.1 TH/MM3 (1.0-4.8); MEAN CELL VOLUME 86.1 FL (80.0-100.0); MEAN CORPUSCULAR HEMOGLOBIN 29.2 PG (27.0-34.0); MEAN CORPUSCULAR HGB CONC 33.9 % (32.0-36.0); MEAN PLATELET VOLUME 7.7 FL (7.0-11.0); MONO % 7.4 % (0.0-8.0); NEUT % 61.9 % (16.0-70.0); PLATELET COUNT 344 TH/MM3 (150-450); RED BLOOD COUNT 3.16 MIL/MM3 (4.50-5.90); RED CELL DISTRIBUTION WIDTH 14.4 % (11.6-17.2); WHITE BLOOD COUNT 13.9 TH/MM3 (4.0-11.0)
[2017-11-05 16:38] LABS: PROTHROMBIN TIME - PATIENT 10.4 SEC (9.8-11.6)
--- NOTE | 2017-11-05 16:41 | RADRPT ---
EXAM DATE/TIME: 11/05/2017 16:17 [facility] COMPARISON: No previous studies available for comparison. INDICATIONS : Possible ascites ORAL CONTRAST: No oral contrast ingested. RADIATION DOSE: 22.65 CTDIvol (mGy) MEDICAL HISTORY : Hypertension. SURGICAL HISTORY : None. ENCOUNTER: Initial ACUITY: 1 day PAIN SCALE: 4/10 LOCATION: Diffuse abdomen TECHNIQUE: Volumetric scanning of the abdomen and pelvis was performed. Using automated exposure control and ad justment of the mA and/or kV according to patient size, radiation dose was kept as low as reasonably achievable to obtain optimal diagnostic quality images. DICOM format image data is available electro nically for review and comparison. FINDINGS: The lower lungs are clear. Trace left pleural effusion is noted There is moderate dense ascites the small shrunken liver and small spleen. Pancreas, adrenals and kidneys are grossly unremarkable. Midline umbilical hernia is noted containing ascitic fluid Generalized anasarca is evident Fluid is extending down into the right inguinal region and right scrotum with the large right hydroce le. Review of the bones reveals degenerative changes. CONCLUSION: Significant ascites umbilical hernia and right hydrocele Small shrunken liver suggesting hepatocellular disease. Dominick Thorne MD FACR on November 05, 2017 at 16:37 Board Certified Radiologist. This report was verified electronically.
[2017-11-05 16:48] LABS: ALBUMIN 0.9 GM/DL (3.4-5.0); ALT (GPT) 11 U/L (12-78); AST (GOT) 22 U/L (15-37); BICARBONATE 29.2 MEQ/L (21.0-32.0); BLOOD UREA NITROGEN 14 MG/DL (7-18); CALCIUM 7.6 MG/DL (8.5-10.1); CHLORIDE 114 MEQ/L (98-107); CREATININE 1.66 MG/DL (0.60-1.30); GLOMERULAR FILTRATION RATE 44 ML/MIN (>89); GLUCOSE,RANDOM 81 MG/DL (74-106); MAGNESIUM 1.6 MG/DL (1.5-2.5); PHOSPHORUS 2.8 MG/DL (2.5-4.9); SODIUM (NA) 148 MEQ/L (136-145)
[2017-11-05 16:50] LABS: ALKALINE PHOSPHATASE 98 U/L (45-117); TOTAL BILIRUBIN ADULT LESS THAN 0.1 MG/DL (0.2-1.0); TOTAL PROTEIN 4.3 GM/DL (6.4-8.2)
--- NOTE | 2017-11-05 18:18 | HHI.HP ---
HPI Service [facility] Hospitalists Primary Care Physician Non-Staff Admission Diagnosis Nephrotic syndrome. Ascites. Acute on chronic kidney disease. Diagnoses: (1) Ascites (2) Nephrotic syndrome (3) Acute renal failure superimposed on chronic kidney disease (4) Anasarca (5) Hypertension Chief Complaint: Abdominal distention with pain associated with shortness of breath Travel History International Travel<30 Days: No Contact w/Intl Traveler <30 Da: No Traveled to Known Affected Are: No History of Present Illness 52-year-old man with history of nephrotic syndrome and recurrent abdominal ascites present to the ED for evaluation of progressive swelling of abdominal wall, abdominal pain with shortness of breath. Patient was admitted to [place] on September 16, 2017 and discharged on September 19, 2017 and treated with paracentesis secondary to ascites. He currently on dose severe shortness of breath and wheezing as well as urinary incontinence. He denies any nausea, emesis or diarrhea. During that hospitalization, nephrology was consulted. 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 He had a kidney biopsy which shows focal segmental glomerulosclerosis,global glomerulosclerosis, interstitial fibrosis and tubular atrophy. Review of Systems Except as stated in HPI: all other systems reviewed are Neg Past Family Social History Past Medical History Autoimmune Disease: Yes (AUTIMMUNE HEMOLYTIC ANEMIA) Cardiovascular Problems: Yes (TRICUSPID REGURGITATION, cardiomyopathy) High Cholesterol: Yes GERD Hypertension: Yes Past Surgical History Abdominal Surgery: Yes (Ascities, paracentesis) Reported Medications Eliquis (Apixaban) 2.5 Mg Tab 2.5 Mg PO BID 30 Days Cozaar (Losartan Potassium) 50 Mg Tab 50 Mg PO BID 30 Days Lasix (Furosemide) 40 Mg Tab 60 Mg PO BID 30 Days Potassium Chloride ER (Potassium Chloride) 10 Meq Cap 10 Meq PO TID Reported Dicyclomine (Dicyclomine HCl) 10 Mg Cap 10 Mg PO Q4-6H PRN Feosol (Ferrous Sulfate) 325 Mg (65 Mg Iron) Tab 325 Mg PO DAILY Acthib Inj (Haemophilus B Polysac Conj Vacc Inj) 0.5 Ml Vial 0.5 Ml IM .ONCE Spironolactone 50 Mg Tab 50 Mg PO DAILY Clonidine (Clonidine HCl) 0.2 Mg Tab 0.2 Mg PO BID Amlodipine (Amlodipine Besylate) 5 Mg Tab 5 Mg PO DAILY Metoprolol Tartrate 100 Mg Tab 100 Mg PO BID Aspirin 81 Mg Chew 81 Mg CHEW DAILY Lovastatin 40 Mg Tab 40 Mg PO DAILY Calcium 500 + Vit D Caplet (Calcium Carbonate/Vitamin D3) 500 Mg-125 Tablet Allergies: Coded Allergies: No Known Allergies (Unverified , 10/09/17) Family History Sister with high blood pressure Social History Alcohol Use: No Tobacco Use: Yes (/2 PPD ) Substance Use: No Physical Exam Vital Signs Vital Signs Date Time Temp Pulse Resp B/P (MAP) Pulse Ox O2 Delivery O2 Flow Rate FiO2 11/05/17 15:03 97.8 83 17 207/100 (135) 98 Physical Exam GENERAL: This is a well-nourished, well-developed patient, in no apparent distress. SKIN: No rashes, ecchymoses or lesions. Cool and dry. HEAD: Atraumatic. Normocephalic. No temporal or scalp tenderness. EYES: Pupils equal round and reactive. Extraocular motions intact. No scleral icterus. No injection or drainage. ENT: Nose without bleeding, purulent drainage or septal hematoma. Throat without erythema, tonsillar hypertrophy or exudate. Uvula midline. Airway patent. NECK: Trachea midline. No JVD or lymphadenopathy. Supple, nontender, no meningeal signs. CARDIOVASCULAR: Regular rate and rhythm without murmurs, gallops, or rubs. RESPIRATORY: Clear to auscultation. Breath sounds equal bilaterally. No wheezes , rales, or rhonchi. GASTROINTESTINAL: Abdomen soft, non-tender, distended. No hepato-splenomegaly, or palpable masses. No guarding. MUSCULOSKELETAL: Extremities without clubbing, cyanosis,+ edema BLE.+ Anasarca NEUROLOGICAL: Awake and alert. Cranial nerves II through XII intact. Motor and sensory grossly within normal limits. Five out of 5 muscle strength in all muscle groups. Normal speech. Laboratory Laboratory Tests Test 11/05/17 16:00 White Blood Count 13.9 Red Blood Count 3.16 Hemoglobin 9.2 Hematocrit 27.2 Mean Corpuscular Volume 86.1 Mean Corpuscular Hemoglobin 29.2 Mean Corpuscular Hemoglobin Concent 33.9 Red Cell Distribution Width 14.4 Platelet Count 344 Mean Platelet Volume 7.7 Neutrophils (%) (Auto) 61.9 Lymphocytes (%) (Auto) 22.0 Monocytes (%) (Auto) 7.4 Eosinophils (%) (Auto) 8.1 Basophils (%) (Auto) 0.6 Neutrophils # (Auto) 8.6 Lymphocytes # (Auto) 3.1 Monocytes # (Auto) 1.0 Eosinophils # (Auto) 1.1 Basophils # (Auto) 0.1 CBC Comment DIFF FINAL Differential Comment Prothrombin Time 10.4 Prothromb Time International Ratio 1.0 Activated Partial Thromboplast Time 27.9 Blood Urea Nitrogen 14 Creatinine 1.66 Random Glucose 81 Total Protein 4.3 Albumin 0.9 Calcium Level 7.6 Phosphorus Level 2.8 Magnesium Level 1.6 Alkaline Phosphatase 98 Aspartate Amino Transf (AST/SGOT) 22 Alanine Aminotransferase (ALT/SGPT) 11 Total Bilirubin LESS THAN 0.1 Sodium Level 148 Potassium Level 3.1 Chloride Level 114 Carbon Dioxide Level 29.2 Anion Gap 5 Estimat Glomerular Filtration Rate 44 B-Type Natriuretic Peptide 297 Result Diagram: 11/05/17 1600 11/05/17 1600 Imaging Last Impressions Chest X-Ray 11/05/17 1538 Signed Impressions: Service Date/Time: Sunday, November 05, 2017 16:06 - CONCLUSION: No acute disease. Dominick Thorne MD FACR Abdomen/Pelvis CT 11/05/171537 Signed Impressions: Service Date/Time: Sunday, November 05, 2017 16:17 - CONCLUSION: Significant ascites umbilical hernia and right hydrocele Small shrunken liver suggesting hepatocellular disease. Dominick Thorne MD FACR Septic Shock Reassessment Septic shock perfusion: reassessment completed Caprini VTE Risk Assessment Caprini VTE Risk Assessment: No/Low Risk (score <= 1) Caprini Risk Assessment Model Point Value = 1 Point Value = 2 Point Value = 3 Point Value = 5 Age 41-60 Minor surgery BMI > 25 kg/m2 Swollen legs Varicose veins or History of unexplained or recurrent spontaneous Oral contraceptives or hormone replacement Sepsis (< 1 month) Serious lung disease, including pneumonia (< 1 month) Abnormal pulmonary function Acute myocardial infarction Congestive heart failure (< 1 month) History of inflammatory bowel disease Medical patient at bed rest Age 61-74 Arthroscopic surgery Major open surgery (> 45 min) Laparoscopic surgery (> 45 min) Malignancy Confined to bed (> 72 hours) Immobilizing plaster cast Central venous access Age >= 75 History of VTE Family history of VTE Factor V Leiden Prothrombin [id number] Lupus anticoagulant Anticardiolipin antibodies Elevated serum homocysteine Heparin-induced thrombocytopenia Other congenital or acquired thrombophilia Stroke (< 1 month) Elective arthroplasty Hip, pelvis, or leg fracture Acute spinal cord injury (< 1 month) Prophylaxis Regimen Total Risk Factor Score Risk Level Prophylaxis Regimen 0-1 Low Early ambulation 2 Moderate Order ONE of the following: *Sequential Compression Device (SCD) *Heparin 5000 units SQ BID 3-4 Higher Order ONE of the following medications: *Heparin 5000 units SQ TID *Enoxaparin/Lovenox 40 mg SQ daily (WT < 150 kg, CrCl > 30 mL/min) *Enoxaparin/Lovenox 30 mg SQ daily (WT < 150 kg, CrCl > 10-29 mL/min) *Enoxaparin/Lovenox 30 mg SQ BID (WT < 150 kg, CrCl > 30 mL/min) AND/OR *Sequential Compression Device (SCD) 5 or more Highest Order ONE of the following medications: *Heparin 5000 units SQ TID (Preferred with Epidurals) *Enoxaparin/Lovenox 40 mg SQ daily (WT < 150 kg, CrCl > 30 mL/min) *Enoxaparin/Lovenox 30 mg SQ daily (WT < 150 kg, CrCl > 10-29 mL/min) *Enoxaparin/Lovenox 30 mg SQ BID (WT < 150 kg, CrCl > 30 mL/min) AND *Sequential Compression Device (SCD) Assessment and Plan Problem List: (1) Ascites ICD Code: R18.8 - Other ascites Status: Acute (2) Anasarca ICD Code: R60.1 - Generalized edema (3) Nephrotic syndrome ICD Code: N04.9 - Nephrotic syndrome with unspecified morphologic changes Assessment and Plan 52-year-old man with Anasarca and ascites Proteinuria - Ascites likely secondary to proteinuria - Scheduling ultrasound-guided paracentesis for tomorrow November 06, 2017 -Start IV diuretic to reduce edema if okay With Nephrology -Hold Eliquis until Paracentesis completed Severe nephrotic syndrome. Acute on chronic -Consult nephrology -Resume spironolactone; hold home Lasix until patient seen by nephrology -Potassium replacement. Hypokalemia -replace electrolyte and monitor Hypertension -Labile BP -Resume outpatient medications Normochromic normocytic anemia of chronic disease -H&H stable Hyperlipidemia -Resume statin Other chronic medical conditions -Resume outpatient medications DVT prophylaxis:SCDs for now Code Status Full code Discussed Condition With Patient, ED physician Physician Certification 2 Midnight Certification Type: Admission for Inpatient Services Order for Inpatient Services The services are ordered in accordance with Medicare regulations or non- Medicare payer requirements, as applicable. In the case of services not specified as inpatient-only, they are appropriately provided as inpatient services in accordance with the 2-midnight benchmark. Estimated LOS (days): 2 days is the estimated time the patient will need to remain in the hospital, assuming treatment plan goals are met and no additional complications. Post-Hospital Plan: Not yet determined Problem Qualifiers (1) Ascites: Qualified Codes: R18.8 - Other ascites (2) Acute renal failure superimposed on chronic kidney disease: Qualified Codes: N17.9 - Acute kidney failure, unspecified; N18.3 - Chronic kidney disease, stage 3 (moderate) Joaquín Coelho MD Nov 05, 2017 18:18
[2017-11-05 19:19] LABS: BACTERIA, URINE RARE /hpf; BILIRUBIN, URINE NEG (NEG); BLOOD, URINE MOD (NEG); GLUCOSE,URINE 150 mg/dL (NEG); KETONE, URINE NEG (NEG); MUCUS URINE FEW /lpf (OCC); NITRITE,URINE NEG (NEG); SQUAMOUS EPITHELIAL CELL URINE <1 /hpf (0-5); URINE COLOR LIGHT-YELLOW (YELLW/STRAW); URINE LEUKOCYTE ESTERASE NEG (NEG)
[2017-11-05 19:30] VITALS: BP 194/105; PULSE 76; RESP 20; O2SAT 99
[2017-11-05] MEDS ORDERED: ONDANSETRON HCL 4 MG/2 ML VIAL IVP PRN (19:30)
[2017-11-05] MEDS ORDERED: NALOXONE HCL 0.4 MG/ML AMP IV PUSH PRN (19:30)
[2017-11-05] MEDS ORDERED: ACETAMINOPHEN/HYDROcodone 325 MG/5 MG TAB PO PRN (19:30)
[2017-11-05] MEDS ORDERED: SODIUM CHLORIDE 0.9% FLUSH 10 ML FLUSH IV FLUSH PRN (19:30)
[2017-11-05] MEDS ORDERED: ACETAMINOPHEN 325 MG TAB PO PRN ×2 (19:30)
[2017-11-05 20:15] VITALS: BP 185/100; PULSE 79
[2017-11-05] MEDS: METOPROLOL TARTRATE 100 MG TAB PO SCH (20:16)
[2017-11-05] MEDS: cloNIDine HCL 0.2 MG TAB PO SCH (20:16)
[2017-11-05] MEDS: FUROSEMIDE 20 MG TAB PO SCH (20:17)
[2017-11-05] MEDS: SODIUM CHLORIDE 0.9% FLUSH 10 ML FLUSH IV FLUSH SCH (20:19)
[2017-11-05 22:44] VITALS: BP 159/85; PULSE 62; RESP 20
[2017-11-06] VITALS (13 sets, daily range): BP systolic 158–206; BP diastolic 77–107; PULSE 58–75; RESP 15–20; TEMP 97.2–98.4; O2SAT 98–100
[2017-11-06 08:11] LABS: AUTOMATED NEUTROPHIL # 8.6 TH/MM3 (1.8-7.7); BASOPHIL # 0.1 TH/MM3 (0-0.2); BASOPHIL % 0.6 % (0.0-2.0); EOSINOPHIL # 1.1 TH/MM3 (0-0.4); EOSINOPHIL % 8.5 % (0.0-4.0); HEMATOCRIT 30.9 % (39.0-51.0); HEMOGLOBIN 10.4 GM/DL (13.0-17.0); LYMPH % 21.1 % (9.0-44.0); LYMPHOCYTE # 2.8 TH/MM3 (1.0-4.8); MEAN CELL VOLUME 85.5 FL (80.0-100.0); MEAN CORPUSCULAR HEMOGLOBIN 28.9 PG (27.0-34.0); MEAN CORPUSCULAR HGB CONC 33.8 % (32.0-36.0); MEAN PLATELET VOLUME 7.9 FL (7.0-11.0); MONO % 5.6 % (0.0-8.0); MONOCYTE # 0.8 TH/MM3 (0-0.9); NEUT % 64.2 % (16.0-70.0); PLATELET COUNT 408 TH/MM3 (150-450); RED BLOOD COUNT 3.61 MIL/MM3 (4.50-5.90); RED CELL DISTRIBUTION WIDTH 14.5 % (11.6-17.2); WHITE BLOOD COUNT 13.4 TH/MM3 (4.0-11.0)
[2017-11-06 08:39] LABS: ALBUMIN 0.9 GM/DL (3.4-5.0); AST (GOT) 22 U/L (15-37); BICARBONATE 27.6 MEQ/L (21.0-32.0); BLOOD UREA NITROGEN 14 MG/DL (7-18); CALCIUM 7.9 MG/DL (8.5-10.1); CHLORIDE 113 MEQ/L (98-107); CREATININE 1.67 MG/DL (0.60-1.30); GLOMERULAR FILTRATION RATE 44 ML/MIN (>89); GLUCOSE,RANDOM 74 MG/DL (74-106); SODIUM (NA) 147 MEQ/L (136-145)
[2017-11-06 08:40] LABS: ALT (GPT) 11 U/L (12-78)
[2017-11-06 08:41] LABS: ALKALINE PHOSPHATASE 107 U/L (45-117); TOTAL BILIRUBIN ADULT 0.2 MG/DL (0.2-1.0); TOTAL PROTEIN 4.9 GM/DL (6.4-8.2)
[2017-11-06] MEDS ORDERED: LIDOCAINE HCL 1% 20 ML VIAL ONE (10:38)
[2017-11-06] MEDS: POTASSIUM CHLORIDE 10 MEQ CAP PO SCH ×3 (11:40→17:48)
[2017-11-06] MEDS: SPIRONOLACTONE 50 MG TAB PO SCH (11:40)
[2017-11-06] MEDS: amLODIPine BESYLATE 5 MG TAB PO SCH (11:41)
[2017-11-06] MEDS: SODIUM CHLORIDE 0.9% FLUSH 10 ML FLUSH IV FLUSH SCH ×2 (11:41→20:39)
[2017-11-06] MEDS: FERROUS SULFATE 325 MG (65 MG ELEMENTAL IRON) TAB PO SCH (11:41)
[2017-11-06] MEDS: PRAVASTATIN SOD 40 MG TAB PO SCH (11:41)
[2017-11-06] MEDS: FUROSEMIDE 20 MG TAB PO SCH (11:41)
[2017-11-06] MEDS: METOPROLOL TARTRATE 100 MG TAB PO SCH ×2 (11:41→20:38)
[2017-11-06] MEDS: cloNIDine HCL 0.2 MG TAB PO SCH ×2 (11:42→20:38)
--- NOTE | 2017-11-06 14:21 | PD.CONS ---
HPI Consult Requested By Reason for Consult Chronic edema. History of FSGS. Primary Care Physician Non-Staff History of Present Illness This patient has a known diagnosis of focal segmental glomerulosclerosis by kidney biopsy October 09, 2017. There is also evidence of moderate to severe incision fibrosis and tubular atrophy. The patient resides in and is under the care of a consumer banker who practices in [place] but apparently was brought to this institution after being told to go to the hospital by his consumer banker for his distended abdomen as well as his elevated blood pressure.. His consumer banker does not practice here. Patient is currently being treated with Acthar Gel. Patient now status post paracentesis this admission. Mention of a small shrunken liver as well as ascites on CT scan also. Review of Systems Constitutional: COMPLAINS OF: Weight gain, DENIES: Diaphoretic episodes, Fatigue, Fever, Weight loss, Chills, Dizziness, Change in appetite, Night Sweats Cardiovascular: COMPLAINS OF: Lower Extremity Edema, DENIES: Chest pain, Palpitations, Syncope, Dyspnea on Exertion, PND, Orthopnea, Claudication Gastrointestinal: DENIES: Abdominal pain, Black stools, Bloody stools, Constipation, Diarrhea, Nausea, Vomiting, Difficulty Swallowing, Anorexia Musculoskeletal: COMPLAINS OF: Muscle aches, DENIES: Joint pain, Joint Swelling Neurologic: DENIES: Abnormal gait, Headache, Localized weakness, Paresthesias, Seizures, Speech Problems, Tremor, Poor Balance Past Family Social History Allergies: Coded Allergies: No Known Allergies (Unverified , 10/09/17) Past Medical History Hypertension Biopsy proven focal segmental glomerulosclerosis with moderate severe and severe fibrosis and tubular atrophy. Biopsy dated October 07, 2017. Proteinuria. Recurrent ascites. Denies a history of liver disease. Description on CT scan mentioned above. Past Surgical History As above. Family History As previously documented. Social History As previously documented. Denies illicit drug use. Denies alcohol abuse. Physical Exam Vital Signs Vital Signs Date Time Temp Pulse Resp B/P (MAP) Pulse Ox O2 Delivery O2 Flow Rate FiO2 11/06/17 12:00 97.5 71 20 193/93 (126) 99 11/06/17 12:00 Room Air 11/06/17 10:02 98.4 66 16 205/103 (137) 100 11/06/17 08:33 98.4 68 16 206/107 (140) 99 11/06/17 08:00 62 15 176/86 (116) 98 Room Air 11/06/17 05:45 75 18 171/84 (113) 99 Room Air 11/06/17 02:00 72 18 174/77 (109) 99 Room Air 11/05/17 22:44 62 20 159/85 (109) 11/05/17 20:15 79 185/100 (128) 11/05/17 19:30 76 20 194/105 (134) 99 Room Air 11/05/17 15:03 97.8 83 17 207/100 (135) 98 Physical Exam GENERAL: Patient sitting at side of the bed not in respiratory distress. Family by bedside. SKIN: Warm and dry. HEAD: Normocephalic. EYES: No scleral icterus. No injection or drainage. NECK: Supple, trachea midline. No JVD or lymphadenopathy. CARDIOVASCULAR: Regular rate and rhythm without murmurs, gallops, or rubs. RESPIRATORY: Breath sounds equal bilaterally. No accessory muscle use. GASTROINTESTINAL: Slightly distended post paracentesis nontender. MUSCULOSKELETAL: No cyanosis, 3+ pitting edema which appears to be somewhat brawny and chronic involving legs, 1-2+ pitting edema involving lower thighs. BACK: Nontender without obvious deformity. No CVA tenderness. Laboratory Laboratory Tests Test 11/05/17 16:00 11/05/17 18:40 11/06/17 07:32 White Blood Count 13.9 13.4 Red Blood Count 3.16 3.61 Hemoglobin 9.2 10.4 Hematocrit 27.2 30.9 Mean Corpuscular Volume 86.1 85.5 Mean Corpuscular Hemoglobin 29.2 28.9 Mean Corpuscular Hemoglobin Concent 33.9 33.8 Red Cell Distribution Width 14.4 14.5 Platelet Count 344 408 Mean Platelet Volume 7.7 7.9 Neutrophils (%) (Auto) 61.9 64.2 Lymphocytes (%) (Auto) 22.0 21.1 Monocytes (%) (Auto) 7.4 5.6 Eosinophils (%) (Auto) 8.1 8.5 Basophils (%) (Auto) 0.6 0.6 Neutrophils # (Auto) 8.6 8.6 Lymphocytes # (Auto) 3.1 2.8 Monocytes # (Auto) 1.0 0.8 Eosinophils # (Auto) 1.1 1.1 Basophils # (Auto) 0.1 0.1 CBC Comment DIFF FINAL DIFF FINAL Differential Comment Prothrombin Time 10.4 Prothromb Time International Ratio 1.0 Activated Partial Thromboplast Time 27.9 Blood Urea Nitrogen 14 14 Creatinine 1.66 1.67 Random Glucose 81 74 Total Protein 4.3 4.9 Albumin 0.9 0.9 Calcium Level 7.6 7.9 Phosphorus Level 2.8 Magnesium Level 1.6 Alkaline Phosphatase 98 107 Aspartate Amino Transf (AST/SGOT) 22 22 Alanine Aminotransferase (ALT/SGPT) 11 11 Total Bilirubin LESS THAN 0.1 0.2 Sodium Level 148 147 Potassium Level 3.1 3.1 Chloride Level 114 113 Carbon Dioxide Level 29.2 27.6 Anion Gap 5 6 Estimat Glomerular Filtration Rate 44 44 B-Type Natriuretic Peptide 297 Urine Color LIGHT-YELLOW Urine Turbidity CLEAR Urine pH 7.0 Urine Specific [place] 1.018 Urine Protein 300 Urine Glucose (UA) 150 Urine Ketones NEG Urine Occult Blood MOD Urine Nitrite NEG Urine Bilirubin NEG Urine Urobilinogen LESS THAN 2.0 Urine Leukocyte Esterase NEG Urine RBC 3 Urine WBC 2 Urine Squamous Epithelial Cells <1 Urine Bacteria RARE Urine Mucus FEW Microscopic Urinalysis Comment CULT NOT INDICATED Result Diagram: 11/06/17 0732 11/06/17 0732 Assessment and Plan Problem List: (1) Focal segmental glomerulosclerosis determined by biopsy ICD Codes: N26.9 - Renal sclerosis, unspecified Status: Chronic Plan: Currently being managed by his own consumer banker as an outpatient [place]. We will defer to the consumer banker regarding immunosuppressive therapy for his glomerulonephritis. I discussed with the patient this is a second admission here where his own consumer banker does not practice. I believe for continuity of care I think the patient would be better served in the future to be admitted to an institution where his own consumer banker practices especially when the patient resides in the same city as his consumer banker practices.. (2) Edema ICD Codes: R60.9 - Edema, unspecified Plan: Patient's main reason for presentation apparently was the development of ascites with discomfort. Also elevated blood pressure. As far as I can tell from history patient's lower extremity edema has not changed much in the last few weeks. Patient now status post paracentesis. CT scan indicating shrunken liver. Will defer to hospitalist regarding whether or not further evaluation for possible cirrhosis as indicated. I will adjust diuretics in view of hypernatremia and hypokalemia however the patient will need to follow-up with his own consumer banker I believe within a week or 2 of discharge from this institution. This was discussed with him. (3) History of nephrotic syndrome ICD Codes: Z87.441 - Personal history of nephrotic syndrome Status: Chronic Plan: Continue angiotensin receptor norberto as well as Acthar gel per his own consumer banker. (4) Hypernatremia ICD Codes: E87.0 - Hyperosmolality and hypernatremia (5) Hypokalemia ICD Codes: E87.6 - Hypokalemia Plan: Supplement potassium as indicated. (6) Hypertension ICD Codes: I10 - Essential (primary) hypertension Status: Chronic Plan: Recommend resuming losartan which can have multiple beneficial effects in the setting i.e. blood pressure control, potentially reducing proteinuria and it may also help to stabilize his potassium level although follow-up of his potassium level is recommended post discharge in about 1 week Defer this arrangement to hospitalist in-house as well as his own consumer banker in [place].. Kendrick Angel MD Nov 06, 2017 14:21
[2017-11-06] MEDS ORDERED: POTASSIUM CHLORIDE 20 MEQ CONTROLLED RELEASE TAB PO ONE (14:45)
[2017-11-06] MEDS ORDERED: CHLOROTHIAZIDE SOD 500 MG VIAL IV ONE (14:45)
--- NOTE | 2017-11-06 15:19 | HHI.PR ---
Subjective Remarks Patient is status post paracentesis. Doing well. Pain control. Imaging of the abdomen suggests cirrhosis which matches his clinical history. Objective Vital Signs Date Time Temp Pulse Resp B/P (MAP) Pulse Ox O2 Delivery O2 Flow Rate FiO2 11/06/17 12:00 97.5 71 20 193/93 (126) 99 11/06/17 12:00 Room Air 11/06/17 11:48 67 11/06/17 10:02 98.4 66 16 205/103 (137) 100 11/06/17 08:33 98.4 68 16 206/107 (140) 99 11/06/17 08:00 62 15 176/86 (116) 98 Room Air 11/06/17 05:45 75 18 171/84 (113) 99 Room Air 11/06/17 02:00 72 18 174/77 (109) 99 Room Air 11/05/17 22:44 62 20 159/85 (109) 11/05/17 20:15 79 185/100 (128) 11/05/17 19:30 76 20 194/105 (134) 99 Room Air I/O 11/05/17 11/05/17 11/05/17 11/06/17 11/06/17 11/06/17 07:00 15:00 23:00 07:00 15:00 23:00 Intake Total 240 ml Output Total 200 ml Balance -200 ml 240 ml Intake Oral 240 ml Output Urine Total 200 ml # Voids 2 Result Diagram: 11/06/17 0732 11/06/17 0732 Objective Remarks GENERAL: NAD, A&Ox3 HEAD: Normocephalic. NECK: Supple, trachea midline. No lymphadenopathy. EYES: No scleral icterus. No injection or drainage. CARDIOVASCULAR: Regular rate and rhythm without murmurs, gallops, or rubs. RESPIRATORY: Breath sounds equal bilaterally. No accessory muscle use. GASTROINTESTINAL: Abdomen soft, non-tender, nondistended. MUSCULOSKELETAL: No cyanosis, bilateral lower extremity edema. SKIN: Warm and dry. NEURO: No focal neurological deficitis. A/P Problem List: (1) Edema ICD Code: R60.9 - Edema, unspecified (2) Hypernatremia ICD Code: E87.0 - Hyperosmolality and hypernatremia (3) History of nephrotic syndrome ICD Code: Z87.441 - Personal history of nephrotic syndrome Status: Chronic (4) Focal segmental glomerulosclerosis determined by biopsy ICD Code: N26.9 - Renal sclerosis, unspecified Status: Chronic (5) Hypertension ICD Code: I10 - Essential (primary) hypertension Status: Chronic (6) Hypokalemia ICD Code: E87.6 - Hypokalemia (7) Anasarca ICD Code: R60.1 - Generalized edema (8) Nephrotic syndrome ICD Code: N04.9 - Nephrotic syndrome with unspecified morphologic changes Assessment and Plan 52-year-old male admitted secondary to symptomatic ascites and nephrotic syndrome Anasarca and ascites Proteinuria Paracentesis completed Follow electrolytes Resume Eliquis in a.m. Torsemide Spironolactone Nephrotic syndrome Acute on chronic Nephrology following Monitor electrolytes and replace as needed Continue spironolactone and torsemide Hypokalemia Monitor potassium and replace as needed Hypertension Continue baseline treatment Follow blood pressures Adjust treatments as needed Normochromic normocytic anemia of chronic disease Follow CBC Hyperlipidemia Continue statin DVT prophylaxis SCDs Matt Brody MD Nov 06, 2017 15:19
[2017-11-06] MEDS: LOSARTAN 50 MG TAB PO SCH ×2 (16:19→20:38)
--- NOTE | 2017-11-06 16:32 | EKG ---
Date Performed: 11/05/2017 Time Performed: 16:02:33 PTAGE: 52 years EKG: Sinus rhythm BORDERLINE LEFT AXIS DEVIATION NONSPECIFIC T-WAVE ABNORMALITY When compared to previous tracing, non specific T wave Changes Are more prominant. Voltage is lower. BORDERLINE ECG PREVIOUS TRACING : 09/16/2017 20.09 DOCTOR: Neo Garcia Interpretating Date/Time 11/06/2017 16:30:22
[2017-11-06] MEDS: cloNIDine HCL 0.1 MG TAB PO PRN (17:48)
[2017-11-06] MEDS: TORSEMIDE 20 MG TAB PO SCH (17:48)
[2017-11-06] MEDS: APIXABAN 2.5 MG TABLET PO SCH (20:38)
[2017-11-07] VITALS (11 sets, daily range): BP systolic 129–174; BP diastolic 72–92; PULSE 54–77; RESP 16–18; TEMP 97.5–98.1; O2SAT 99–100
[2017-11-07] MEDS: SODIUM CHLORIDE 0.9% FLUSH 10 ML FLUSH IV FLUSH SCH ×2 (07:14→20:58)
[2017-11-07 07:42] LABS: AUTOMATED NEUTROPHIL # 7.5 TH/MM3 (1.8-7.7); BASOPHIL # 0.1 TH/MM3 (0-0.2); BASOPHIL % 0.4 % (0.0-2.0); EOSINOPHIL # 0.9 TH/MM3 (0-0.4); EOSINOPHIL % 7.5 % (0.0-4.0); HEMATOCRIT 25.9 % (39.0-51.0); HEMOGLOBIN 8.9 GM/DL (13.0-17.0); LYMPHOCYTE # 2.7 TH/MM3 (1.0-4.8); MEAN CELL VOLUME 84.5 FL (80.0-100.0); MEAN CORPUSCULAR HGB CONC 34.4 % (32.0-36.0); MEAN PLATELET VOLUME 7.9 FL (7.0-11.0); MONO % 5.8 % (0.0-8.0); MONOCYTE # 0.7 TH/MM3 (0-0.9); NEUT % 63.3 % (16.0-70.0); PLATELET COUNT 331 TH/MM3 (150-450); RED BLOOD COUNT 3.07 MIL/MM3 (4.50-5.90); RED CELL DISTRIBUTION WIDTH 14.5 % (11.6-17.2); WHITE BLOOD COUNT 11.8 TH/MM3 (4.0-11.0)
--- NOTE | 2017-11-07 07:45 | RADRPT ---
EXAM DATE/TIME: 11/06/2017 07:37 [facility] COMPARISON: US GUIDED ABD PARACENTESIS, September 17, 2017, 8:34. INDICATIONS : Ascites. MEDICAL HISTORY : Hypercholesterolemia. Hypertension. Gastroesophageal reflux disease. Ascites. Renal disease. Tricuspi d Regurgitation. Nephrotic Syndrome. Autoimmune hemolytic anemia. SURGICAL HISTORY : Cysts on forehead. Paracentesis. ENCOUNTER: Subsequent ACUITY: 2 months PAIN SCORE: 3/10 LOCATION: Left lower quadrant FLUID: Total volume of 13,000 cc of cloudy, yellow fluid was removed. Fluid was discarded. Paracentesis was therapeutic only. Post procedure scanning reveals no hematoma or other complication. TECHNIQUE: 1. Ultrasound guidance for abdominal paracentesis. 2. Paracentesis. The risks, benefits, and alternatives to ultrasound guided paracentesis were explained to the patient in detail including the risk of bleeding and infection. Written and verbal informed consent was obt ained. With the patient on the ultrasound table, ultrasound imaging was used to select the most appropriate approach for paracentesis. Overlying skin was prepped and draped in the usual sterile fashion and wi th a local anesthetic, a dermatotomy was made with an 11 blade scalpel. A 6 Tamazight [id number] ca theter was introduced into the peritoneal cavity and fluid was collected. The patient tolerated the procedure well and left the ultrasound suite in stable condition. CONCLUSION: Uncomplicated ultrasound guided paracentesis. Joaquín Weeks MD on November 07, 2017 at 7:43 Board Certified Radiologist. This report was verified electronically.
[2017-11-07 08:02] LABS: ALBUMIN 0.7 GM/DL (3.4-5.0); ALT (GPT) 8 U/L (12-78); AST (GOT) 20 U/L (15-37); BICARBONATE 28.3 MEQ/L (21.0-32.0); BLOOD UREA NITROGEN 15 MG/DL (7-18); CALCIUM 7.5 MG/DL (8.5-10.1); CHLORIDE 111 MEQ/L (98-107); CREATININE 1.69 MG/DL (0.60-1.30); GLOMERULAR FILTRATION RATE 43 ML/MIN (>89); GLUCOSE,RANDOM 78 MG/DL (74-106); MAGNESIUM 1.4 MG/DL (1.5-2.5); SODIUM (NA) 146 MEQ/L (136-145)
[2017-11-07 08:15] LABS: ALKALINE PHOSPHATASE 93 U/L (45-117); TOTAL BILIRUBIN ADULT 0.2 MG/DL (0.2-1.0)
[2017-11-07] MEDS ORDERED: MAGNESIUM SULFATE 1 GM PREMIX 100 ML IV SCH (08:30)
[2017-11-07] MEDS ORDERED: POTASSIUM CHLORIDE 10 MEQ CONTROLLED RELEASE TAB PO ONE (08:30)
[2017-11-07] MEDS: FERROUS SULFATE 325 MG (65 MG ELEMENTAL IRON) TAB PO SCH (08:37)
[2017-11-07] MEDS: MAGNESIUM OXIDE 400 MG TAB PO SCH (08:37)
[2017-11-07] MEDS: SPIRONOLACTONE 50 MG TAB PO SCH (08:38)
[2017-11-07] MEDS: cloNIDine HCL 0.2 MG TAB PO SCH ×2 (08:38→20:58)
[2017-11-07] MEDS: amLODIPine BESYLATE 5 MG TAB PO SCH (08:38)
[2017-11-07] MEDS: PRAVASTATIN SOD 40 MG TAB PO SCH (08:38)
[2017-11-07] MEDS: METOPROLOL TARTRATE 100 MG TAB PO SCH ×2 (08:38→20:57)
[2017-11-07] MEDS: LOSARTAN 50 MG TAB PO SCH ×2 (08:38→20:57)
[2017-11-07] MEDS: TORSEMIDE 20 MG TAB PO SCH ×2 (08:38→16:48)
[2017-11-07] MEDS: POTASSIUM CHLORIDE 10 MEQ CAP PO SCH ×2 (08:38→12:00)
[2017-11-07] MEDS: APIXABAN 2.5 MG TABLET PO SCH ×2 (08:39→20:57)
--- NOTE | 2017-11-07 09:06 | HHI.PR ---
Subjective Remarks This is a pleasant 52 y/o Male with Nephrotic syndrome and recurrent abdominal ascites who readmission after paracentesis, He had a kidney biopsy which shows focal segmental glomerulosclerosis,global glomerulosclerosis, interstitial fibrosis and tubular atrophy. Status post paracentesis while on this admission, Imaging of the abdomen suggests cirrhosis which matches his clinical history. Seen by nephrology specialist, has nephrology specialist as outpatient, deferred management to Nephrology specialist Primary for Immunosuppressive therapy for his glomerulonephritis, Renal function stable, Edema Status post paracentesis, improving on Torsemide Diuril tonight, Replacing Electrolytes, his Potassium 2.9 and Magnesium 1.4, for Nephrotic syndrome to continue ARB, Discussed with his Sister and Nurse Miss Abreu she wants to know more about Hepatocellular Dysfunction, Noted shrunken liver on CT scan c/w hepatocellular disease as per patient he was Unaware of Liver disease, asked for GI specialist inhouse, no nausea, vomit or diarrhea. Objective Vital Signs Date Time Temp Pulse Resp B/P (MAP) Pulse Ox O2 Delivery O2 Flow Rate FiO2 11/07/17 04:00 Room Air 11/07/17 04:00 60 11/07/17 03:25 98.0 59 16 156/84 (108) 100 11/07/17 00:05 54 11/07/17 00:00 Room Air 11/06/17 23:28 97.6 66 16 158/81 (106) 99 11/06/17 20:40 Room Air 11/06/17 20:00 68 11/06/17 19:40 97.8 62 16 170/99 (122) 100 11/06/17 17:49 72 11/06/17 16:00 Room Air 11/06/17 16:00 97.2 58 20 202/89 (126) 99 11/06/17 15:48 63 11/06/17 12:00 97.5 71 20 193/93 (126) 99 11/06/17 12:00 Room Air 11/06/17 11:48 67 11/06/17 10:02 98.4 66 16 205/103 (137) 100 I/O 11/06/17 11/06/17 11/06/17 11/07/17 11/07/17 11/07/17 07:00 15:00 23:00 07:00 15:00 23:00 Intake Total 240 ml 240 ml Output Total 900 ml 1150 ml Balance 240 ml -900 ml -910 ml Intake Oral 240 ml 240 ml Output Urine Total 900 ml 1150 ml # Voids 2 # Bowel Movements 0 Result Diagram: 11/07/1739 11/07/17638 Imaging Last Impressions Cyst Biopsy Asp-Paracentesis US 11/06/17 0600 Signed Impressions: Service Date/Time: October 07:37 - CONCLUSION: Uncomplicated ultrasound guided paracentesis. Joaquín Weeks MD Chest X-Ray 11/05/171537 Signed Impressions: Service Date/Time: Sunday, November 05, 2017 16:06 - CONCLUSION: No acute disease. Dominick Thorne MD FACR Abdomen/Pelvis CT 11/05/171537 Signed Impressions: Service Date/Time: Sunday, November 05, 2017 16:17 - CONCLUSION: Significant ascites umbilical hernia and right hydrocele Small shrunken liver suggesting hepatocellular disease. Dominick Thorne MD FACR Procedures Paracentesis Other Results Laboratory Tests Test 11/05/17 16:00 11/05/17 18:40 11/07/17 06:39 Prothrombin Time 10.4 SEC Prothromb Time International Ratio 1.0 RATIO Activated Partial Thromboplast Time 27.9 SEC Blood Urea Nitrogen 14 MG/DL 15 MG/DL Creatinine 1.66 MG/DL 1.69 MG/DL Random Glucose 81 MG/DL 78 MG/DL Total Protein 4.3 GM/DL 4.0 GM/DL Albumin 0.9 GM/DL 0.7 GM/DL Calcium Level 7.6 MG/DL 7.5 MG/DL Phosphorus Level 2.8 MG/DL Magnesium Level 1.6 MG/DL 1.4 MG/DL Alkaline Phosphatase 98 U/L 93 U/L Aspartate Amino Transf (AST/SGOT) 22 U/L 20 U/L Alanine Aminotransferase (ALT/SGPT) 11 U/L 8 U/L Total Bilirubin LESS THAN 0.1 MG/DL 0.2 MG/DL Sodium Level 148 MEQ/L 146 MEQ/L Potassium Level 3.1 MEQ/L 2.9 MEQ/L Chloride Level 114 MEQ/L 111 MEQ/L Carbon Dioxide Level 29.2 MEQ/L 28.3 MEQ/L B-Type Natriuretic Peptide 297 PG/ML Urine Color LIGHT-YELLOW Urine Turbidity CLEAR Urine pH 7.0 Urine Specific [place] 1.018 Urine Protein 300 mg/dL Urine Glucose (UA) 150 mg/dL Urine Ketones NEG mg/dL Urine Occult Blood MOD Urine Nitrite NEG Urine Bilirubin NEG Urine Urobilinogen LESS THAN 2.0 MG/DL Urine Leukocyte Esterase NEG Urine RBC 3 /hpf Urine WBC 2 /hpf Urine Squamous Epithelial Cells <1 /hpf Urine Bacteria RARE /hpf Urine Mucus FEW /lpf Microscopic Urinalysis Comment CULT NOT INDICATED White Blood Count 11.8 TH/MM3 Red Blood Count 3.07 MIL/MM3 Hemoglobin 8.9 GM/DL Hematocrit 25.9 % Mean Corpuscular Volume 84.5 FL Mean Corpuscular Hemoglobin 29.0 PG Mean Corpuscular Hemoglobin Concent 34.4 % Red Cell Distribution Width 14.5 % Platelet Count 331 TH/MM3 Mean Platelet Volume 7.9 FL Neutrophils (%) (Auto) 63.3 % Lymphocytes (%) (Auto) 23.0 % Monocytes (%) (Auto) 5.8 % Eosinophils (%) (Auto) 7.5 % Basophils (%) (Auto) 0.4 % Neutrophils # (Auto) 7.5 TH/MM3 Lymphocytes # (Auto) 2.7 TH/MM3 Monocytes # (Auto) 0.7 TH/MM3 Eosinophils # (Auto) 0.9 TH/MM3 Basophils # (Auto) 0.1 TH/MM3 CBC Comment DIFF FINAL Differential Comment Anion Gap 7 MEQ/L Estimat Glomerular Filtration Rate 43 ML/MIN Hepatitis B Surface Antigen NONREACTIVE Hepatitis C IgG Antibody NONREACTIVE Objective Remarks GENERAL: NAD, A&Ox3 HEAD: Normocephalic. NECK: Supple, trachea midline. No lymphadenopathy. EYES: No scleral icterus. No injection or drainage. CARDIOVASCULAR: Regular rate and rhythm without murmurs, gallops, or rubs. RESPIRATORY: Breath sounds equal bilaterally. No accessory muscle use. GASTROINTESTINAL: Abdomen soft, non-tender, distended. MUSCULOSKELETAL: No cyanosis, bilateral lower extremity edema. trophic changes positive. SKIN: Warm and dry. NEURO: No focal neurological deficits Medications and IVs Current Medications Medications (Trade) Dose Ordered Sig/Devan Route Start Time Stop Time Status Last Admin (NS Flush) 2 ml UNSCH PRN IV FLUSH 11/05/17 19:30 (NS Flush) 2 ml BID IV FLUSH 11/05/17 21:00 11/07/17 07:14 (Tylenol) 650 mg Q4H PRN PO 11/05/17 19:30 (Zofran Inj) 4 mg Q6H PRN IVP 11/05/17 19:30 (Tylenol) 650 mg Q6H PRN PO 11/05/17 19:30 ([place] 5-325 Mg) 1 tab Q4H PRN PO 11/05/17 19:30 (Narcan Inj) 0.4 mg UNSCH PRN IV PUSH 11/05/17 19:30 (Norvasc) 5 mg DAILY PO 11/06/17 09:00 11/07/17 08:38 (Catapres) 0.2 mg BID PO 11/05/17 21:00 11/07/17 08:38 (Ferrous Sulfate) 325 mg DAILY PO 11/06/17 09:00 11/07/17 08:37 (Pravachol) 40 mg DAILY PO 11/06/17 09:00 11/07/17 08:38 (Lopressor) 100 mg BID PO 11/05/17 21:00 11/07/17 08:38 (KCl) 10 meq TID PO 11/06/17 09:00 11/07/17 08:38 (Aldactone) 50 mg DAILY PO 11/06/17 09:00 11/07/17 08:38 (Catapres) 0.1 mg Q6H PRN PO 11/06/17 08:45 11/06/17 17:48 (Cozaar) 50 mg Q12HR PO 11/06/17 14:45 11/07/17 08:38 (Demadex) 40 mg BID@ PO 11/06/17 18:00 11/07/17 08:38 (Eliquis) 2.5 mg BID PO 11/06/17 21:00 11/07/17 08:39 (Mag-Ox) 400 mg DAILY PO 11/07/17 09:00 11/07/17 08:37 A/P Assessment and Plan (1) Edema ICD Code: R60.9 - Edema, unspecified (2) Hypernatremia ICD Code: E87.0 - Hyperosmolality and hypernatremia (3) History of nephrotic syndrome ICD Code: Z87.441 - Personal history of nephrotic syndrome Status: Chronic (4) Focal segmental glomerulosclerosis determined by biopsy ICD Code: N26.9 - Renal sclerosis, unspecified Status: Chronic (5) Hypertension ICD Code: I10 - Essential (primary) hypertension Status: Chronic (6) Hypokalemia ICD Code: E87.6 - Hypokalemia (7) Anasarca ICD Code: R60.1 - Generalized edema (8) Nephrotic syndrome ICD Code: N04.9 - Nephrotic syndrome with unspecified morphologic changes Assessment and Plan 52-year-old male admitted secondary to symptomatic ascites and nephrotic syndrome Anasarca and ascites status post paracentesis. Proteinuria kidney biopsy which shows focal segmental glomerulosclerosis,global glomerulosclerosis, interstitial fibrosis and tubular atrophy. Status post paracentesis while on this admission, Imaging of the abdomen suggests cirrhosis which matches his clinical history. Seen by nephrology specialist, has nephrology specialist as outpatient, deferred management to Nephrology specialist Primary for Immunosuppressive therapy for his glomerulonephritis, Renal function stable, Edema Status post paracentesis, improving on Torsemide Diuril tonight, Replacing Electrolytes, his Potassium 2.9 and Magnesium 1.4, for Nephrotic syndrome to continue ARB, Discussed with his Sister and Nurse Miss Abreu she wants to know more about Hepatocellular Dysfunction, Noted shrunken liver on CT scan c/w hepatocellular disease as per patient he was Unaware of Liver disease, asked for GI specialist inhouse, no nausea, vomit or diarrhea. Nephrotic syndrome Acute on chronic Nephrology following Monitor electrolytes and replace as needed Continue spironolactone and torsemide and ARBs Electrolyte derangement Replaced by Nephrology specialist. Hypertension Better control. Normochromic normocytic anemia of chronic disease Follow CBC Hyperlipidemia Continue statin Hepatocellular Disease Consult GI specialist. DVT prophylaxis SCDs Eliquis Discussed with Patient and his Sister Miss Abreu she is concerned due to that for them is a new finding. Discharge Planning Once cleared by nephrology specialist. Luis Bermeo MD Nov 07, 2017 09:06
--- NOTE | 2017-11-07 15:10 | HHI.NPPN ---
Subjective History of Present Illness This patient has a known diagnosis of focal segmental glomerulosclerosis by kidney biopsy October 09, 2017. There is also evidence of moderate to severe incision fibrosis and tubular atrophy. The patient resides in and is under the care of a coffee grinder who practices in [place] but apparently was brought to this institution after being told to go to the hospital by his coffee grinder for his distended abdomen as well as his elevated blood pressure. His coffee grinder does not practice here. Patient is currently being treated with Acthar Gel. Patient now status post paracentesis this admission. Mention of a small shrunken liver as well as ascites on CT scan also. Interval History [place] [id number] Says abdominal pain much better. Sister present in room Concerned about the patient's shrunken liver as he has no known hx of hepatocellular disease (Chelsea Rooney) Review of Systems Cardiovascular Cardiac: Edema (Chelsea Rooney) Gastrointestinal Gastrointestinal: Abdominal Pain (Chelsea Rooney) Objective Data Data 11/07/17 11/08/17 19:00 07:00 Intake Total 100 ml Balance 100 ml IV Total 100 ml Vital Signs Date Time Temp Pulse Resp B/P (MAP) Pulse Ox O2 Delivery O2 Flow Rate FiO2 11/07/17 13:41 77 11/07/17 12:00 97.5 57 18 160/91 (114) 100 11/07/17 12:00 57 11/07/17 08:00 97.8 62 18 164/91 (115) 100 11/07/17 04:00 Room Air 11/07/17 04:00 60 11/07/17 03:25 98.0 59 16 156/84 (108) 100 11/07/17 00:05 54 11/07/17 00:00 Room Air 11/06/17 23:28 97.6 66 16 158/81 (106) 99 11/06/17 20:40 Room Air 11/06/17 20:00 68 11/06/17 19:40 97.8 62 16 170/99 (122) 100 11/06/17 17:49 72 11/06/17 16:00 Room Air 11/06/17 16:00 97.2 58 20 202/89 (126) 99 11/06/17 15:48 63 (Chelsea Rooney) -: 11/07/17 0639 11/07/17 1231 Imaging Last Impressions Cyst Biopsy Asp-Paracentesis US 11/06/17 0600 Signed Impressions: Service Date/Time: October 07:37 - CONCLUSION: Uncomplicated ultrasound guided paracentesis. Joaquín eWeks MD Chest X-Ray 11/05/17 1538 Signed Impressions: Service Date/Time: Sunday, November 05, 2017 16:06 - CONCLUSION: No acute disease. Dominick Thorne MD FACR Abdomen/Pelvis CT 11/05/17 1538 Signed Impressions: Service Date/Time: Sunday, November 05, 2017 16:17 - CONCLUSION: Significant ascites umbilical hernia and right hydrocele Small shrunken liver suggesting hepatocellular disease. Dominick Thorne MD FACR Medication Review Current Medications Medications (Trade) Dose Ordered Sig/Devan Route Start Time Stop Time Status Last Admin (NS Flush) 2 ml UNSCH PRN IV FLUSH 11/05/17 19:30 (NS Flush) 2 ml BID IV FLUSH 11/05/17 21:00 11/07/17 07:14 (Tylenol) 650 mg Q4H PRN PO 11/05/17 19:30 (Zofran Inj) 4 mg Q6H PRN IVP 11/05/17 19:30 (Tylenol) 650 mg Q6H PRN PO 11/05/17 19:30 ([place] 5-325 Mg) 1 tab Q4H PRN PO 11/05/17 19:30 (Narcan Inj) 0.4 mg UNSCH PRN IV PUSH 11/05/17 19:30 (Norvasc) 5 mg DAILY PO 11/06/17 09:00 11/07/17 08:38 (Catapres) 0.2 mg BID PO 11/05/17 21:00 11/07/17 08:38 (Ferrous Sulfate) 325 mg DAILY PO 11/06/17 09:00 11/07/17 08:37 (Pravachol) 40 mg DAILY PO 11/06/17 09:00 11/07/17 08:38 (Lopressor) 100 mg BID PO 11/05/17 21:00 11/07/17 08:38 (KCl) 10 meq TID PO 11/06/17 09:00 11/07/17 12:00 (Aldactone) 50 mg DAILY PO 11/06/17 09:00 11/07/17 08:38 (Catapres) 0.1 mg Q6H PRN PO 11/06/17 08:45 11/06/17 17:48 (Cozaar) 50 mg Q12HR PO 11/06/17 14:45 11/07/17 08:38 (Demadex) 40 mg BID@,18 PO 11/06/17 18:00 11/07/17 08:38 (Eliquis) 2.5 mg BID PO 11/06/17 21:00 11/07/17 08:39 (Mag-Ox) 400 mg DAILY PO 11/07/17 09:00 11/07/17 08:37 (Chelsea Rooney) Physical Exam General Appearance: No Acute Distress, Comfortable (Chelsea Rooney) Pulmonary Resp Exam: Clear Bilaterally, Breath Sounds Equal (Chelsea Rooney) Cardiology CV Exam: Regular, Normal Sinus Rhythm (Chelsea Rooney) Gastrointestinal/Abdomen GI Exam: Distended (Chelsea Rooney) Integumentary Skin Exam: Warm (Chelsea Rooney) Extremeties Extremities Exam: Moderate Edema (generalized anasarca) (Chelsea Rooney) Neurologic Neuro Exam: Alert, Awake (Chelsea Rooney) Psychiatric Psych Exam: Appropriate Responses (Chelsea Rooney) Assessment/Plan Problem List: (1) Focal segmental glomerulosclerosis determined by biopsy ICD Codes: N26.9 - Renal sclerosis, unspecified Status: Chronic Plan: Currently being managed by his own coffee grinder as an outpatient [place]. We will defer to the coffee grinder regarding immunosuppressive therapy for his glomerulonephritis. Renal functions stable. (2) Edema ICD Codes: R60.9 - Edema, unspecified Plan: s/p paracentesis and feeling better Responded well to po Torsemide Will give dose of IV Diuril tonight Change KCl to 20meq q12h with extra dose of 20meq with Diuril tonight Received Mg repletion this AM. (3) History of nephrotic syndrome ICD Codes: Z87.441 - Personal history of nephrotic syndrome Status: Chronic Plan: Continue angiotensin receptor norberto as well as HP Acthar (4) Hypernatremia ICD Codes: E87.0 - Hyperosmolality and hypernatremia (5) Hypokalemia ICD Codes: E87.6 - Hypokalemia Plan: Supplement potassium as indicated. (6) Hypertension ICD Codes: I10 - Essential (primary) hypertension Status: Chronic Plan: Recommend resuming losartan which can have multiple beneficial effects in the setting i.e. blood pressure control, potentially reducing proteinuria and it may also help to stabilize his potassium level although follow-up of his potassium level is recommended post discharge in about 1 week Defer this arrangement to hospitalist in-house as well as his own coffee grinder in [place].. (7) Hepatocellular dysfunction ICD Codes: K76.89 - Other specified diseases of liver Plan: Noted shrunken liver on CT scan c/w hepatocellular disease The patient states he is unaware of any underlying liver disease. Does mention that he has an outpatient GI doctor. Sister is concerned for potential of port vein thrombosis given his nephrotic syndrome, but is on maintenance Eliquis so uncertain of this. Will defer to hospitalist if in patient GI consultation recommended. (Chelsea Rooney) Plan The exam, history, and the medical decision-making described in the above note were completed with the assistance of the RAKAN. I reviewed and agree with the findings presented. (Kendrick Angel MD) Chelsea Rooney Nov 07, 2017 15:10 Kendrick Angel MD Nov 08, 2017 15:55
[2017-11-07] MEDS ORDERED: CHLOROTHIAZIDE SOD 500 MG VIAL IV ONE (15:15)
[2017-11-07] MEDS ORDERED: POTASSIUM CHLORIDE 20 MEQ CONTROLLED RELEASE TAB PO ONE (15:15)
[2017-11-08] VITALS (9 sets, daily range): BP systolic 153–183; BP diastolic 85–96; PULSE 60–69; RESP 16–18; TEMP 97.5–98.3; O2SAT 98–100
[2017-11-08] MEDS: POTASSIUM CHLORIDE 10 MEQ CAP PO SCH ×2 (01:52→15:20)
[2017-11-08] MEDS: APIXABAN 2.5 MG TABLET PO SCH ×2 (09:00→20:46)
[2017-11-08] MEDS: MAGNESIUM OXIDE 400 MG TAB PO SCH (09:35)
[2017-11-08] MEDS: SPIRONOLACTONE 50 MG TAB PO SCH (09:35)
[2017-11-08] MEDS: TORSEMIDE 20 MG TAB PO SCH ×2 (09:35→18:16)
[2017-11-08] MEDS: LOSARTAN 50 MG TAB PO SCH ×2 (09:35→20:46)
[2017-11-08] MEDS: cloNIDine HCL 0.2 MG TAB PO SCH ×2 (09:35→20:45)
[2017-11-08] MEDS: SODIUM CHLORIDE 0.9% FLUSH 10 ML FLUSH IV FLUSH SCH ×2 (09:36→20:46)
[2017-11-08] MEDS: PRAVASTATIN SOD 40 MG TAB PO SCH (09:36)
[2017-11-08] MEDS: METOPROLOL TARTRATE 100 MG TAB PO SCH ×2 (09:36→20:45)
[2017-11-08] MEDS: amLODIPine BESYLATE 5 MG TAB PO SCH (09:36)
[2017-11-08] MEDS: FERROUS SULFATE 325 MG (65 MG ELEMENTAL IRON) TAB PO SCH (09:36)
[2017-11-08 10:04] LABS: ALBUMIN 0.9 GM/DL (3.4-5.0); BICARBONATE 29.3 MEQ/L (21.0-32.0); CALCIUM 7.9 MG/DL (8.5-10.1); CREATININE 1.78 MG/DL (0.60-1.30); MAGNESIUM 1.7 MG/DL (1.5-2.5)
--- NOTE | 2017-11-08 10:32 | HHI.PR ---
Subjective Remarks This is a pleasant 52 y/o Male with Nephrotic syndrome and recurrent abdominal ascites who readmission after paracentesis, He had a kidney biopsy which shows focal segmental glomerulosclerosis,global glomerulosclerosis, interstitial fibrosis and tubular atrophy. Status post paracentesis while on this admission, Imaging of the abdomen suggests cirrhosis which matches his clinical history. Seen by nephrology specialist, has nephrology specialist as outpatient, deferred management to Nephrology specialist Primary for Immunosuppressive therapy for his glomerulonephritis, Renal function stable, Edema Status post paracentesis, improving on Torsemide Diuril tonight, Replacing Electrolytes, his Potassium 2.9 and Magnesium 1.4, for Nephrotic syndrome to continue ARB, Discussed with his Sister and Nurse Miss Abreu she wants to know more about Hepatocellular Dysfunction, Noted shrunken liver on CT scan c/w hepatocellular disease as per patient he was Unaware of Liver disease, asked for GI specialist inhouse. 11/08: Seen in his bedroom, awaiting final recommendations by Nephrology specialist for discharge, asked for GI specialist consult he has GI specialist as outpatient, no nausea, vomit or diarrhea. Objective Vital Signs Date Time Temp Pulse Resp B/P (MAP) Pulse Ox O2 Delivery O2 Flow Rate FiO2 11/08/17 08:00 97.9 64 16 156/93 (114) 100 11/08/17 04:00 61 11/08/17 03:25 98.3 61 16 153/88 (109) 99 11/08/17 00:00 62 11/07/17 23:15 98.1 68 18 129/72 (91) 100 11/07/17 20:15 70 11/07/17 20:15 Room Air 11/07/17 19:35 98.0 73 18 160/82 (108) 100 11/07/17 16:00 98.1 60 18 174/92 (119) 99 11/07/17 15:49 73 11/07/17 13:41 77 11/07/17 12:00 97.5 57 18 160/91 (114) 100 11/07/17 12:00 57 I/O 11/07/17 11/07/17 11/07/17 11/08/17 11/08/17 11/08/17 07:00 15:00 23:00 07:00 15:00 23:00 Intake Total 240 ml 100 ml 960 ml 240 ml Output Total 1150 ml 3000 ml 1400 ml Balance -910 ml 100 ml -2040 ml -1160 ml Intake Oral 240 ml 960 ml 240 ml IV Total 100 ml Output Urine Total 1150 ml 3000 ml 1400 ml # Bowel Movements 0 3 0 Result Diagram: 11/07/17 0639 11/08/17 0903 Imaging Last Impressions Cyst Biopsy Asp-Paracentesis US 11/06/17 0600 Signed Impressions: Service Date/Time: October 07:37 - CONCLUSION: Uncomplicated ultrasound guided paracentesis. Joaquín Weeks MD Chest X-Ray 11/05/171537 Signed Impressions: Service Date/Time: Sunday, November 05, 2017 16:06 - CONCLUSION: No acute disease. Dominick Thorne MD FACR Abdomen/Pelvis CT 11/05/171537 Signed Impressions: Service Date/Time: Sunday, November 05, 2017 16:17 - CONCLUSION: Significant ascites umbilical hernia and right hydrocele Small shrunken liver suggesting hepatocellular disease. Dominick Thorne MD FACR Procedures Paracentesis Other Results Laboratory Tests Test 11/05/17 16:00 11/05/17 18:40 11/07/17 06:39 11/08/17 09:03 Prothrombin Time 10.4 SEC Prothromb Time International Ratio 1.0 RATIO Activated Partial Thromboplast Time 27.9 SEC B-Type Natriuretic Peptide 297 PG/ML Urine Color LIGHT-YELLOW Urine Turbidity CLEAR Urine pH 7.0 Urine Specific [place] 1.018 Urine Protein 300 mg/dL Urine Glucose (UA) 150 mg/dL Urine Ketones NEG mg/dL Urine Occult Blood MOD Urine Nitrite NEG Urine Bilirubin NEG Urine Urobilinogen LESS THAN 2.0 MG/DL Urine Leukocyte Esterase NEG Urine RBC 3 /hpf Urine WBC 2 /hpf Urine Squamous Epithelial Cells <1 /hpf Urine Bacteria RARE /hpf Urine Mucus FEW /lpf Microscopic Urinalysis Comment CULT NOT INDICATED White Blood Count 11.8 TH/MM3 Red Blood Count 3.07 MIL/MM3 Hemoglobin 8.9 GM/DL Hematocrit 25.9 % Mean Corpuscular Volume 84.5 FL Mean Corpuscular Hemoglobin 29.0 PG Mean Corpuscular Hemoglobin Concent 34.4 % Red Cell Distribution Width 14.5 % Platelet Count 331 TH/MM3 Mean Platelet Volume 7.9 FL Neutrophils (%) (Auto) 63.3 % Lymphocytes (%) (Auto) 23.0 % Monocytes (%) (Auto) 5.8 % Eosinophils (%) (Auto) 7.5 % Basophils (%) (Auto) 0.4 % Neutrophils # (Auto) 7.5 TH/MM3 Lymphocytes # (Auto) 2.7 TH/MM3 Monocytes # (Auto) 0.7 TH/MM3 Eosinophils # (Auto) 0.9 TH/MM3 Basophils # (Auto) 0.1 TH/MM3 CBC Comment DIFF FINAL Differential Comment Blood Urea Nitrogen 15 MG/DL 15 MG/DL Creatinine 1.69 MG/DL 1.78 MG/DL Random Glucose 78 MG/DL 72 MG/DL Total Protein 4.0 GM/DL Albumin 0.7 GM/DL 0.9 GM/DL Calcium Level 7.5 MG/DL 7.9 MG/DL Magnesium Level 1.4 MG/DL 1.7 MG/DL Alkaline Phosphatase 93 U/L Aspartate Amino Transf (AST/SGOT) 20 U/L Alanine Aminotransferase (ALT/SGPT) 8 U/L Total Bilirubin 0.2 MG/DL Sodium Level 146 MEQ/L 144 MEQ/L Potassium Level 2.9 MEQ/L 3.2 MEQ/L Chloride Level 111 MEQ/L 108 MEQ/L Carbon Dioxide Level 28.3 MEQ/L 29.3 MEQ/L Hepatitis B Surface Antigen NONREACTIVE Hepatitis C IgG Antibody NONREACTIVE Phosphorus Level 3.0 MG/DL Anion Gap 7 MEQ/L Estimat Glomerular Filtration Rate 41 ML/MIN Objective Remarks GENERAL: NAD, A&Ox3 HEAD: Normocephalic. NECK: Supple, trachea midline. No lymphadenopathy. EYES: No scleral icterus. No injection or drainage. CARDIOVASCULAR: Regular rate and rhythm without murmurs, gallops, or rubs. RESPIRATORY: Breath sounds equal bilaterally. No accessory muscle use. GASTROINTESTINAL: Abdomen soft, non-tender, distended. MUSCULOSKELETAL: No cyanosis, bilateral lower extremity edema. trophic changes positive. SKIN: Warm and dry. NEURO: No focal neurological deficits Medications and IVs Current Medications Medications (Trade) Dose Ordered Sig/Devan Route Start Time Stop Time Status Last Admin (NS Flush) 2 ml UNSCH PRN IV FLUSH 11/05/17 19:30 (NS Flush) 2 ml BID IV FLUSH 11/05/17 21:00 11/08/17 09:36 (Tylenol) 650 mg Q4H PRN PO 11/05/17 19:30 (Zofran Inj) 4 mg Q6H PRN IVP 11/05/17 19:30 (Tylenol) 650 mg Q6H PRN PO 11/05/17 19:30 ([place] 5-325 Mg) 1 tab Q4H PRN PO 11/05/17 19:30 (Narcan Inj) 0.4 mg UNSCH PRN IV PUSH 11/05/17 19:30 (Norvasc) 5 mg DAILY PO 11/06/17 09:00 11/08/17 09:36 (Catapres) 0.2 mg BID PO 11/05/17 21:00 11/08/17 09:35 (Ferrous Sulfate) 325 mg DAILY PO 11/06/17 09:00 11/08/17 09:36 (Pravachol) 40 mg DAILY PO 11/06/17 09:00 11/08/17 09:36 (Lopressor) 100 mg BID PO 11/05/17 21:00 11/08/17 09:36 (Aldactone) 50 mg DAILY PO 11/06/17 09:00 11/08/17 09:35 (Catapres) 0.1 mg Q6H PRN PO 11/06/17 08:45 11/06/17 17:48 (Cozaar) 50 mg Q12HR PO 11/06/17 14:45 11/08/17 09:35 (Demadex) 40 mg BID@,18 PO 11/06/17 18:00 11/08/17 09:35 (Eliquis) 2.5 mg BID PO 11/06/17 21:00 11/07/17 20:57 (Mag-Ox) 400 mg DAILY PO 11/07/17 09:00 11/08/17 09:35 (KCl) 20 meq Q12H PO 11/08/17 01:00 11/08/17 01:52 A/P Assessment and Plan (1) Edema ICD Code: R60.9 - Edema, unspecified (2) Hypernatremia ICD Code: E87.0 - Hyperosmolality and hypernatremia (3) History of nephrotic syndrome ICD Code: Z87.441 - Personal history of nephrotic syndrome Status: Chronic (4) Focal segmental glomerulosclerosis determined by biopsy ICD Code: N26.9 - Renal sclerosis, unspecified Status: Chronic (5) Hypertension ICD Code: I10 - Essential (primary) hypertension Status: Chronic (6) Hypokalemia ICD Code: E87.6 - Hypokalemia (7) Anasarca ICD Code: R60.1 - Generalized edema (8) Nephrotic syndrome ICD Code: N04.9 - Nephrotic syndrome with unspecified morphologic changes Assessment and Plan 52-year-old male admitted secondary to symptomatic ascites and nephrotic syndrome Anasarca and ascites status post paracentesis. Proteinuria kidney biopsy which shows focal segmental glomerulosclerosis,global glomerulosclerosis, interstitial fibrosis and tubular atrophy. Status post paracentesis while on this admission, Imaging of the abdomen suggests cirrhosis which matches his clinical history. Seen by nephrology specialist, has nephrology specialist as outpatient, deferred management to Nephrology specialist Primary for Immunosuppressive therapy for his glomerulonephritis, Renal function stable, Edema Status post paracentesis, improving on Torsemide Diuril tonight, Replacing Electrolytes, his Potassium 2.9 and Magnesium 1.4, for Nephrotic syndrome to continue ARB, Discussed with his Sister and Nurse Miss Abreu she wants to know more about Hepatocellular Dysfunction, Noted shrunken liver on CT scan c/w hepatocellular disease as per patient he was Unaware of Liver disease, asked for GI specialist inhouse, no nausea, vomit or diarrhea. Nephrotic syndrome Acute on chronic Nephrology following Monitor electrolytes and replace as needed Continue spironolactone and torsemide and ARBs Electrolyte derangement Replaced by Nephrology specialist. Hypertension Better control. Normochromic normocytic anemia of chronic disease Follow CBC Hyperlipidemia Continue statin Hepatocellular Disease Consult GI specialist. DVT prophylaxis SCDs Darin Discussed with patient in the room, awaiting recommendations by GI and Nephrology for discharge. Discharge Planning Once cleared by nephrology specialist. Luis Bermeo MD Nov 08, 2017 10:32
--- NOTE | 2017-11-08 12:09 | HHI.NPPN ---
Subjective History of Present Illness This patient has a known diagnosis of focal segmental glomerulosclerosis by kidney biopsy October 09, 2017. There is also evidence of moderate to severe incision fibrosis and tubular atrophy. The patient resides in and is under the care of a at home independent call center agent who practices in [place] but apparently was brought to this institution after being told to go to the hospital by his at home independent call center agent for his distended abdomen as well as his elevated blood pressure. His at home independent call center agent does not practice here. Patient is currently being treated with Acthar Gel. Patient now status post paracentesis this admission. Mention of a small shrunken liver as well as ascites on CT scan also. Interval History Diuresing well Edema improved slightly Pt offers no new complaints today (Chelsea Rooney) Review of Systems Cardiovascular Cardiac: Edema (Chelsea Rooney) Objective Data Data Vital Signs Date Time Temp Pulse Resp B/P (MAP) Pulse Ox O2 Delivery O2 Flow Rate FiO2 11/08/17 08:00 63 11/08/17 08:00 97.9 64 16 156/93 (114) 100 11/08/17 04:00 61 11/08/17 03:25 98.3 61 16 153/88 (109) 99 11/08/17 00:00 62 11/07/17 23:15 98.1 68 18 129/72 (91) 100 11/07/17 20:15 70 11/07/17 20:15 Room Air 11/07/17 19:35 98.0 73 18 160/82 (108) 100 11/07/17 16:00 98.1 60 18 174/92 (119) 99 11/07/17 15:49 73 11/07/17 13:41 77 (Chelsea Rooney) -: 11/07/17 0639 11/08/17 0903 Imaging Last Impressions Cyst Biopsy Asp-Paracentesis US 11/06/17 0600 Signed Impressions: Service Date/Time: October 07:37 - CONCLUSION: Uncomplicated ultrasound guided paracentesis. Joaquín Weeks MD Chest X-Ray 11/05/17 1538 Signed Impressions: Service Date/Time: Sunday, November 05, 2017 16:06 - CONCLUSION: No acute disease. Dominick Thorne MD FACR Abdomen/Pelvis CT 11/05/17 1538 Signed Impressions: Service Date/Time: Sunday, November 05, 2017 16:17 - CONCLUSION: Significant ascites umbilical hernia and right hydrocele Small shrunken liver suggesting hepatocellular disease. Dominick Thorne MD FACR Medication Review Current Medications Medications (Trade) Dose Ordered Sig/Devan Route Start Time Stop Time Status Last Admin (NS Flush) 2 ml UNSCH PRN IV FLUSH 11/05/17 19:30 (NS Flush) 2 ml BID IV FLUSH 11/05/17 21:00 11/08/17 09:36 (Tylenol) 650 mg Q4H PRN PO 11/05/17 19:30 (Zofran Inj) 4 mg Q6H PRN IVP 11/05/17 19:30 (Tylenol) 650 mg Q6H PRN PO 11/05/17 19:30 ([place] 5-325 Mg) 1 tab Q4H PRN PO 11/05/17 19:30 (Narcan Inj) 0.4 mg UNSCH PRN IV PUSH 11/05/17 19:30 (Norvasc) 5 mg DAILY PO 11/06/17 09:00 11/08/17 09:36 (Catapres) 0.2 mg BID PO 11/05/17 21:00 11/08/17 09:35 (Ferrous Sulfate) 325 mg DAILY PO 11/06/17 09:00 11/08/17 09:36 (Pravachol) 40 mg DAILY PO 11/06/17 09:00 11/08/17 09:36 (Lopressor) 100 mg BID PO 11/05/17 21:00 11/08/17 09:36 (Aldactone) 50 mg DAILY PO 11/06/17 09:00 11/08/17 09:35 (Catapres) 0.1 mg Q6H PRN PO 11/06/17 08:45 11/06/17 17:48 (Cozaar) 50 mg Q12HR PO 11/06/17 14:45 11/08/17 09:35 (Demadex) 40 mg BID@18 PO 11/06/17 18:00 11/08/17 09:35 (Eliquis) 2.5 mg BID PO 11/06/17 21:00 11/07/17 20:57 (Mag-Ox) 400 mg DAILY PO 11/07/17 09:00 11/08/17 09:35 (KCl) 20 meq Q12H PO 11/08/17 01:00 11/08/17 01:52 (Chelsea Rooney) Physical Exam General Appearance: No Acute Distress, Comfortable (Chelsea Rooney) Pulmonary Resp Exam: Clear Bilaterally, Breath Sounds Equal (Chelsea Rooney) Cardiology CV Exam: Regular, Normal Sinus Rhythm (Chelsea Rooney) Gastrointestinal/Abdomen GI Exam: Distended (Chelsea Rooney) Integumentary Skin Exam: Warm (Chelsea Rooney) Extremeties Extremities Exam: Moderate Edema (generalized anasarca) (Chelsea Rooney) Neurologic Neuro Exam: Alert, Awake (Chelsea Rooney) Psychiatric Psych Exam: Appropriate Responses (Chelsea Rooney) Assessment/Plan Problem List: (1) Focal segmental glomerulosclerosis determined by biopsy ICD Codes: N26.9 - Renal sclerosis, unspecified Status: Chronic Plan: Currently being managed by his own at home independent call center agent as an outpatient [place]. We will defer to the at home independent call center agent regarding immunosuppressive therapy for his glomerulonephritis. Renal functions remain relatively stable. (2) Edema ICD Codes: R60.9 - Edema, unspecified Plan: s/p paracentesis and feeling better Diuresing well with UOP of >4L yesterday Continue on po Torsemide May benefit from increased dose fo Aldactone as outpatient, but will defer to his home at home independent call center agent Give extra dose KCl today (3) History of nephrotic syndrome ICD Codes: Z87.441 - Personal history of nephrotic syndrome Status: Chronic Plan: Continue angiotensin receptor norberto as well as HP Acthar (4) Hypernatremia ICD Codes: E87.0 - Hyperosmolality and hypernatremia Plan: Resolved (5) Hypokalemia ICD Codes: E87.6 - Hypokalemia Plan: Supplement potassium as indicated. (6) Hypertension ICD Codes: I10 - Essential (primary) hypertension Status: Chronic Plan: Recommend resuming losartan which can have multiple beneficial effects in the setting i.e. blood pressure control, potentially reducing proteinuria and it may also help to stabilize his potassium level although follow-up of his potassium level is recommended post discharge in about 1 week Defer this arrangement to hospitalist in-house as well as his own at home independent call center agent in [place].. (7) Hepatocellular dysfunction ICD Codes: K76.89 - Other specified diseases of liver Plan: GI has been consulted as per primary (Chelsea Rooney) Plan Patient has responded quite well from conversion to furosemide to p.o. torsemide which has better bioavailability in the setting of extensive edema.. Urine output quite good with improving edema. Recommend discharge patient on p.o. torsemide with follow-up with primary at home independent call center agent in [place]. As indicated previously I would recommend patient follow-up with his primary at home independent call center agent in about 1-2 weeks with an outpatient BMP in about 5-7 days. At this point in time the patient will be seen as needed by myself. Please call with any questions. The exam, history, and the medical decision-making described in the above note were completed with the assistance of the PA-Pia. I reviewed and agree with the findings presented. I attest that I had a [id number] encounter with the patient on the same day, and personally performed and documented my assessment and findings in the medical record. (Kendrick Angel MD) Chelsea Rooney Nov 08, 2017 12:09 Kendrick Angel MD Nov 08, 2017 15:59
[2017-11-08] MEDS ORDERED: POTASSIUM CHLORIDE 20 MEQ CONTROLLED RELEASE TAB PO ONE (12:15)
[2017-11-08] MEDS: cloNIDine HCL 0.1 MG TAB PO PRN (15:22)
[2017-11-09] VITALS (8 sets, daily range): BP systolic 124–172; BP diastolic 64–88; PULSE 59–70; RESP 17–18; TEMP 97.9–98.1; O2SAT 96–100
[2017-11-09] MEDS: POTASSIUM CHLORIDE 10 MEQ CAP PO SCH ×2 (00:10→12:45)
[2017-11-09 07:16] LABS: HEMATOCRIT 25.7 % (39.0-51.0); HEMOGLOBIN 8.7 GM/DL (13.0-17.0); MEAN CELL VOLUME 85.4 FL (80.0-100.0); MEAN PLATELET VOLUME 7.9 FL (7.0-11.0); PLATELET COUNT 299 TH/MM3 (150-450); RED BLOOD COUNT 3.01 MIL/MM3 (4.50-5.90); RED CELL DISTRIBUTION WIDTH 14.5 % (11.6-17.2); WHITE BLOOD COUNT 11.4 TH/MM3 (4.0-11.0)
[2017-11-09 07:49] LABS: ALBUMIN 0.8 GM/DL (3.4-5.0); BICARBONATE 28.9 MEQ/L (21.0-32.0); CREATININE 1.86 MG/DL (0.60-1.30); MAGNESIUM 1.4 MG/DL (1.5-2.5); PHOSPHORUS 2.4 MG/DL (2.5-4.9)
[2017-11-09] MEDS: APIXABAN 2.5 MG TABLET PO SCH ×2 (08:43→20:34)
[2017-11-09] MEDS: cloNIDine HCL 0.2 MG TAB PO SCH ×2 (08:43→20:34)
[2017-11-09] MEDS: FERROUS SULFATE 325 MG (65 MG ELEMENTAL IRON) TAB PO SCH (08:43)
[2017-11-09] MEDS: PRAVASTATIN SOD 40 MG TAB PO SCH (08:43)
[2017-11-09] MEDS: LOSARTAN 50 MG TAB PO SCH ×2 (08:43→20:34)
[2017-11-09] MEDS: amLODIPine BESYLATE 5 MG TAB PO SCH (08:44)
[2017-11-09] MEDS: TORSEMIDE 20 MG TAB PO SCH ×2 (08:44→21:32)
[2017-11-09] MEDS: MAGNESIUM OXIDE 400 MG TAB PO SCH (08:44)
[2017-11-09] MEDS: METOPROLOL TARTRATE 100 MG TAB PO SCH ×2 (08:44→20:34)
[2017-11-09] MEDS: SPIRONOLACTONE 50 MG TAB PO SCH (08:44)
[2017-11-09] MEDS: SODIUM CHLORIDE 0.9% FLUSH 10 ML FLUSH IV FLUSH SCH ×2 (08:45→20:34)
[2017-11-09] MEDS ORDERED: MAGNESIUM SULFATE 1 GM PREMIX 100 ML IV SCH (09:00)
--- NOTE | 2017-11-09 09:00 | HHI.PR ---
Subjective Remarks This is a pleasant 52 y/o Male with Nephrotic syndrome and recurrent abdominal ascites who readmission after paracentesis, He had a kidney biopsy which shows focal segmental glomerulosclerosis,global glomerulosclerosis, interstitial fibrosis and tubular atrophy. Status post paracentesis while on this admission, Imaging of the abdomen suggests cirrhosis which matches his clinical history. Seen by nephrology specialist, has nephrology specialist as outpatient, deferred management to Nephrology specialist Primary for Immunosuppressive therapy for his glomerulonephritis, Renal function stable, Edema Status post paracentesis, improving on Torsemide Diuril tonight, Replacing Electrolytes, his Potassium 2.9 and Magnesium 1.4, for Nephrotic syndrome to continue ARB, Discussed with his Sister and Nurse Miss Abreu she wants to know more about Hepatocellular Dysfunction, Noted shrunken liver on CT scan c/w hepatocellular disease as per patient he was Unaware of Liver disease, asked for GI specialist inhouse. 11/08: Seen in his bedroom, awaiting final recommendations by Nephrology specialist for discharge, asked for GI specialist consult he has GI specialist as outpatient. 11/09: Stable in his bedroom, already recommended for discharge as per nephrology specialist, discussed with CEN[employer]AL SERVICES TECH Miss Fatemeh Roberts from GI, EGD gave Duodenitis, started on Liver Workup not yet recommended for discharge as per GI specialist. no nausea, vomit or diarrhea Objective Vital Signs Date Time Temp Pulse Resp B/P (MAP) Pulse Ox O2 Delivery O2 Flow Rate FiO2 11/09/17 07:00 Room Air 11/09/17 04:07 Room Air 11/09/17 04:00 98.1 70 18 124/64 (84) 96 11/09/17 04:00 11/09/17 00:12 Room Air 11/09/17 00:00 98.1 64 18 124/64 (84) 98 11/08/17 23:42 69 11/08/17 20:00 Room Air 11/08/17 20:00 98.1 60 18 160/85 (110) 99 11/08/17 19:42 61 11/08/17 16:00 97.5 61 18 183/96 (125) 98 11/08/17 16:00 67 11/08/17 12:00 61 I/O 11/08/17 11/08/17 11/08/17 11/09/17 11/09/17 11/09/17 07:00 15:00 23:00 07:00 15:00 23:00 Intake Total 240 ml 740 ml 240 ml Output Total 1400 ml 850 ml Balance -1160 ml -110 ml 240 ml Intake Oral 240 ml 740 ml 240 ml Output Urine Total 1400 ml 850 ml # Voids 3 # Bowel Movements 0 3 3 Result Diagram: 11/09/17 0703 11/09/17 0703 Imaging Last Impressions Cyst Biopsy Asp-Paracentesis US 11/06/17 0600 Signed Impressions: Service Date/Time: October 07:37 - CONCLUSION: Uncomplicated ultrasound guided paracentesis. Joaquín Weeks MD Chest X-Ray 11/05/17 153 Signed Impressions: Service Date/Time: Sunday, November 05, 2017 16:06 - CONCLUSION: No acute disease. Dominick Thorne MD FACR Abdomen/Pelvis CT 11/05/178 Signed Impressions: Service Date/Time: Sunday, November 05, 2017 16:17 - CONCLUSION: Significant ascites umbilical hernia and right hydrocele Small shrunken liver suggesting hepatocellular disease. Dominick Thorne MD FACR Procedures Paracentesis Other Results Laboratory Tests Test 11/05/17 16:00 11/05/17 18:40 11/07/17 06:39 11/09/17 07:03 Prothrombin Time 10.4 SEC Prothromb Time International Ratio 1.0 RATIO Activated Partial Thromboplast Time 27.9 SEC B-Type Natriuretic Peptide 297 PG/ML Urine Color LIGHT-YELLOW Urine Turbidity CLEAR Urine pH 7.0 Urine Specific [place] 1.018 Urine Protein 300 mg/dL Urine Glucose (UA) 150 mg/dL Urine Ketones NEG mg/dL Urine Occult Blood MOD Urine Nitrite NEG Urine Bilirubin NEG Urine Urobilinogen LESS THAN 2.0 MG/DL Urine Leukocyte Esterase NEG Urine RBC 3 /hpf Urine WBC 2 /hpf Urine Squamous Epithelial Cells <1 /hpf Urine Bacteria RARE /hpf Urine Mucus FEW /lpf Microscopic Urinalysis Comment CULT NOT INDICATED Neutrophils (%) (Auto) 63.3 % Lymphocytes (%) (Auto) 23.0 % Monocytes (%) (Auto) 5.8 % Eosinophils (%) (Auto) 7.5 % Basophils (%) (Auto) 0.4 % Neutrophils # (Auto) 7.5 TH/MM3 Lymphocytes # (Auto) 2.7 TH/MM3 Monocytes # (Auto) 0.7 TH/MM3 Eosinophils # (Auto) 0.9 TH/MM3 Basophils # (Auto) 0.1 TH/MM3 CBC Comment DIFF FINAL Differential Comment Blood Urea Nitrogen 15 MG/DL 18 MG/DL Creatinine 1.69 MG/DL 1.86 MG/DL Random Glucose 78 MG/DL 101 MG/DL Total Protein 4.0 GM/DL Albumin 0.7 GM/DL 0.8 GM/DL Calcium Level 7.5 MG/DL 7.0 MG/DL Magnesium Level 1.4 MG/DL 1.4 MG/DL Alkaline Phosphatase 93 U/L Aspartate Amino Transf (AST/SGOT) 20 U/L Alanine Aminotransferase (ALT/SGPT) 8 U/L Total Bilirubin 0.2 MG/DL Sodium Level 146 MEQ/L 145 MEQ/L Potassium Level 2.9 MEQ/L 3.5 MEQ/L Chloride Level 111 MEQ/L 110 MEQ/L Carbon Dioxide Level 28.3 MEQ/L 28.9 MEQ/L Hepatitis B Surface Antigen NONREACTIVE Hepatitis C IgG Antibody NONREACTIVE White Blood Count 11.4 TH/MM3 Red Blood Count 3.01 MIL/MM3 Hemoglobin 8.7 GM/DL Hematocrit 25.7 % Mean Corpuscular Volume 85.4 FL Mean Corpuscular Hemoglobin 29.0 PG Mean Corpuscular Hemoglobin Concent 34.0 % Red Cell Distribution Width 14.5 % Platelet Count 299 TH/MM3 Mean Platelet Volume 7.9 FL Phosphorus Level 2.4 MG/DL Anion Gap 6 MEQ/L Estimat Glomerular Filtration Rate 39 ML/MIN Objective Remarks GENERAL: NAD, A&Ox3 HEAD: Normocephalic. NECK: Supple, trachea midline. No lymphadenopathy. EYES: No scleral icterus. No injection or drainage. CARDIOVASCULAR: Regular rate and rhythm without murmurs, gallops, or rubs. RESPIRATORY: Breath sounds equal bilaterally. No accessory muscle use. GASTROINTESTINAL: Abdomen soft, non-tender, distended. MUSCULOSKELETAL: No cyanosis, bilateral lower extremity edema. trophic changes positive. SKIN: Warm and dry. NEURO: No focal neurological deficits Medications and IVs Current Medications Medications (Trade) Dose Ordered Sig/Devan Route Start Time Stop Time Status Last Admin (NS Flush) 2 ml UNSCH PRN IV FLUSH 11/05/17 19:30 (NS Flush) 2 ml BID IV FLUSH 11/05/17 21:00 11/09/17 08:45 (Tylenol) 650 mg Q4H PRN PO 11/05/17 19:30 (Zofran Inj) 4 mg Q6H PRN IVP 11/05/17 19:30 (Tylenol) 650 mg Q6H PRN PO 11/05/17 19:30 ([place] 5-325 Mg) 1 tab Q4H PRN PO 11/05/17 19:30 (Narcan Inj) 0.4 mg UNSCH PRN IV PUSH 11/05/17 19:30 (Norvasc) 5 mg DAILY PO 11/06/17 09:00 11/09/17 08:44 (Catapres) 0.2 mg BID PO 11/05/17 21:00 11/09/17 08:43 (Ferrous Sulfate) 325 mg DAILY PO 11/06/17 09:00 11/09/17 08:43 (Pravachol) 40 mg DAILY PO 11/06/17 09:00 11/09/17 08:43 (Lopressor) 100 mg BID PO 11/05/17 21:00 11/09/17 08:44 (Aldactone) 50 mg DAILY PO 11/06/17 09:00 11/09/17 08:44 (Catapres) 0.1 mg Q6H PRN PO 11/06/17 08:45 11/08/17 15:22 (Cozaar) 50 mg Q12HR PO 11/06/17 14:45 11/09/17 08:43 (Demadex) 40 mg BID@ PO 11/06/17 18:00 11/09/17 08:44 (Eliquis) 2.5 mg BID PO 11/06/17 21:00 11/09/17 08:43 (Mag-Ox) 400 mg DAILY PO 11/07/17 09:00 11/09/17 08:44 (KCl) 20 meq Q12H PO 11/08/17 01:00 11/09/17 00:10 A/P Assessment and Plan (1) Edema ICD Code: R60.9 - Edema, unspecified (2) Hypernatremia ICD Code: E87.0 - Hyperosmolality and hypernatremia (3) History of nephrotic syndrome ICD Code: Z87.441 - Personal history of nephrotic syndrome Status: Chronic (4) Focal segmental glomerulosclerosis determined by biopsy ICD Code: N26.9 - Renal sclerosis, unspecified Status: Chronic (5) Hypertension ICD Code: I10 - Essential (primary) hypertension Status: Chronic (6) Hypokalemia ICD Code: E87.6 - Hypokalemia (7) Anasarca ICD Code: R60.1 - Generalized edema (8) Nephrotic syndrome ICD Code: N04.9 - Nephrotic syndrome with unspecified morphologic changes Assessment and Plan 52-year-old male admitted secondary to symptomatic ascites and nephrotic syndrome Anasarca and ascites status post paracentesis. Proteinuria kidney biopsy which shows focal segmental glomerulosclerosis,global glomerulosclerosis, interstitial fibrosis and tubular atrophy. Status post paracentesis while on this admission, Imaging of the abdomen suggests cirrhosis which matches his clinical history. Seen by nephrology specialist, has nephrology specialist as outpatient, deferred management to Nephrology specialist Primary for Immunosuppressive therapy for his glomerulonephritis, Renal function stable, okay to discharge from Nephrology specialist standpoint Nephrotic syndrome Acute on chronic Nephrology following Monitor electrolytes and replace as needed Continue spironolactone and torsemide and ARBs as per GI specialist recommended Albumin but leaves to Nephrology specialist for this management. Electrolyte derangement Replaced by Nephrology specialist. Hypertension Better control. Normochromic normocytic anemia of chronic disease Follow CBC Hyperlipidemia Continue statin Hepatocellular Disease started Liver workup awaiting for clearance for discharge. DVT prophylaxis SCDs Eliquis Discussed with patient in the room, awaiting recommendations by GI for discharge. Discharge Planning Once cleared by GI specialist. Luis Bermeo MD Nov 09, 2017 09:00
--- NOTE | 2017-11-09 12:15 | HHI.GIFU ---
Subjective Remarks This is a 52 yo M with PMH significant for nephrotic syndrome, autoimmune hemolytic anemia, cardiomyopathy, GERD, and tricuspid regurgitation. He came to the ER on 11/05 for abdominal pain and swelling. Pt with recent admission for abdominal pain, underwent paracentesis in August and had 10,400 cc of fluid removed. Gram stain with rare WBCs, no growth in culture. SAAG 0.5. Cytology negative for malignant cells, small lymphocytes present. Pt had another paracentesis done three days ago with 13,000 cc of fluid removed. Our service has been consulted to evaluate pt for hepatocellular disease. CT abdomen and pelvis findings consistent with small shrunken liver suggesting hepatocellular disease. Pt denies history of liver issues. Quit drinking a couple years ago. Denies nausea, vomiting. Only has abdominal pain when his abdomen swells, relieved after paracentesis. Complaining of diarrhea for approx 5 months, state 4-5 episodes a day. Denies blood in his stool. Denies fever, chills, recent travel. Was seen by a GI doctor in [place], states had EGD and colonoscopy approx a month ago with findings of duodenitis and normal colon. Pt has known anemia, takes iron supplements. Of note, he is on Eliquis. Denies OTC herbs, supplements, Tylenol. On medication for his cholesterol, Pravastatin. (Fatemeh Roberts) Remarks Allergies: Coded Allergies: No Known Allergies (Unverified , 10/09/17) Past Medical History Hypertension Biopsy proven focal segmental glomerulosclerosis with moderate severe and severe fibrosis and tubular atrophy. Biopsy dated October 07, 2017. Proteinuria. Recurrent ascites. Denies a history of liver disease. Description on CT scan mentioned above. Past Surgical History As above. Family History As previously documented. Social History As previously documented. Denies illicit drug use. Denies alcohol abuse. Medication list as noted in the med rec (Alexis Mazariegos MD) Objective Vitals I&O Vital Signs Date Time Temp Pulse Resp B/P (MAP) Pulse Ox O2 Delivery O2 Flow Rate FiO2 11/09/17 08:00 59 11/09/17 08:00 98.1 66 18 149/88 (108) 99 11/09/17 07:00 Room Air 11/09/17 04:07 Room Air 11/09/17 04:00 98.1 70 18 124/64 (84) 96 11/09/17 04:00 11/09/17 00:12 Room Air 11/09/17 00:00 98.1 64 18 124/64 (84) 98 11/08/17 23:42 69 11/08/17 20:00 Room Air 11/08/17 20:00 98.1 60 18 160/85 (110) 99 11/08/17 19:42 61 11/08/17 16:00 97.5 61 18 183/96 (125) 98 11/08/17 16:00 67 11/08/17 12:00 61 I/O 11/08/17 11/08/17 11/08/17 11/09/17 11/09/17 11/09/17 07:00 15:00 23:00 07:00 15:00 23:00 Intake Total 240 ml 740 ml 240 ml Output Total 1400 ml 850 ml Balance -1160 ml -110 ml 240 ml Intake Oral 240 ml 740 ml 240 ml Output Urine Total 1400 ml 850 ml # Voids 3 # Bowel Movements 0 3 3 Laboratory Laboratory Tests Test 11/09/17 07:03 White Blood Count 11.4 Red Blood Count 3.01 Hemoglobin 8.7 Hematocrit 25.7 Mean Corpuscular Volume 85.4 Mean Corpuscular Hemoglobin 29.0 Mean Corpuscular Hemoglobin Concent 34.0 Red Cell Distribution Width 14.5 Platelet Count 299 Mean Platelet Volume 7.9 Blood Urea Nitrogen 18 Creatinine 1.86 Random Glucose 101 Albumin 0.8 Calcium Level 7.0 Phosphorus Level 2.4 Magnesium Level 1.4 Sodium Level 145 Potassium Level 3.5 Chloride Level 110 Carbon Dioxide Level 28.9 Anion Gap 6 Estimat Glomerular Filtration Rate 39 Imaging Last Impressions Cyst Biopsy Asp-Paracentesis US 11/06/17 0600 Signed Impressions: Service Date/Time: October 07:37 - CONCLUSION: Uncomplicated ultrasound guided paracentesis. Joaquín Weeks MD Chest X-Ray 11/05/171537 Signed Impressions: Service Date/Time: Sunday, November 05, 2017 16:06 - CONCLUSION: No acute disease. Dominick Thorne MD FACR Abdomen/Pelvis CT 11/05/171537 Signed Impressions: Service Date/Time: Sunday, November 05, 2017 16:17 - CONCLUSION: Significant ascites umbilical hernia and right hydrocele Small shrunken liver suggesting hepatocellular disease. Dominick Thorne MD FACR Physical Exam HEENT: Normocephalic; atraumatic CHEST: Even/unlabored CARDIAC: RRR ABDOMEN: Distended, soft, nontender, bowel sound active SKIN: Normal; no rash; no jaundice. DOG SHOW JUDGE: No focal deficits; alert and oriented times three. (Fatemeh Roberts) Assessment and Plan Plan Assessment: - CT findings suggesting hepatocellular disease CT abdomen and pelvis W/O IV contrast (11/05) --> Significant ascites umbilical hernia and right hydrocele. Small shrunken liver suggesting hepatocellular disease. Denies history of liver issues. Quit drinking ETOH a few years ago. Hepatitis B and C negative. ROXANE ordered in September, negative. On medication for hyperlipidemia - Ascites - paracentesis in August and had 10,400 cc of fluid removed. Gram stain with rare WBCs, no growth in culture. SAAG 0.5, indicating cause other than portal HTN. Pt with nephrotic syndrome, likely underlying cause. Cytology negative for malignant cells, small lymphocytes present. S/P paracentesis 11/06 with 13,000 cc of fluid removed. - Diarrhea for approx 5 months, state 4-5 episodes a day. Denies blood in his stool. Denies fever, chills, recent travel. Was seen by a GI doctor in [place], states had EGD and colonoscopy approx a month ago with findings of duodenitis and normal colon. - Autoimmune hemolytic anemia- Of note, he is on Eliquis. Plan: Liver VARGAS Spironolactone Stool studies Nephrology following Further recommendations based on clinical course and results of above Pt has been seen and examined by myself and Dr. Mazariegos and this note is written on his behalf (Fatemeh Roberts) Physician Comments Patient seen and examined Agree with above Continue with current supportive care Monitor labs Patient with chronic kidney disease with nephrotic syndrome who presents with new onset ascites with severe hypo-albuminemia with noted electrolyte abnormality with reports of diarrhea with noted shrunken liver on CT of the abdomen I spoke to the sister who is a nurse practitioner and she states that on prior x -rays there was never any mention of a shrunken liver There is also no history of any significant alcohol We will proceed with liver workup Patient will probably require albumin replacement but I will defer to the nephrology service for albumin replacement and diuresis Further recommendations she will depend on the hospital course (Alexis Mazariegos MD) Fatemeh Roberts Nov 09, 2017 12:15 Alexis Mazariegos MD Nov 09, 2017 20:59
[2017-11-09 15:06] LABS: % SATURATION IRON PROFILE 16.5 % (20-50); CHOLESTEROL 203 MG/DL (120-200); IRON (FE) 27 MCG/DL (65-175); TOTAL IRON BINDING CAPACITY 164 MCG/DL (250-450); TRIGLYCERIDES 132 MG/DL (42-150)
[2017-11-09 15:08] LABS: CHOLESTEROL/ HDL RATIO 4.68 RATIO; FERRITIN 149 NG/ML (26-388); HDL CHOLESTEROL 43.3 MG/DL (40.0-60.0); LDL CHOLESTEROL 133 MG/DL (0-99)
--- NOTE | 2017-11-09 15:21 | HHI.NPPN ---
Subjective History of Present Illness This patient has a known diagnosis of focal segmental glomerulosclerosis by kidney biopsy October 09, 2017. There is also evidence of moderate to severe incision fibrosis and tubular atrophy. The patient resides in and is under the care of a stator winder who practices in [place] but apparently was brought to this institution after being told to go to the hospital by his stator winder for his distended abdomen as well as his elevated blood pressure. His stator winder does not practice here. Patient is currently being treated with Acthar Gel. Patient now status post paracentesis this admission. Mention of a small shrunken liver as well as ascites on CT scan also. Interval History Patient had no verbal complaints. Review of Systems Cardiovascular Cardiac: Edema Objective Data Data Vital Signs Date Time Temp Pulse Resp B/P (MAP) Pulse Ox O2 Delivery O2 Flow Rate FiO2 11/09/17 12:00 97.9 60 18 149/82 (104) 99 11/09/17 08:00 59 11/09/17 08:00 98.1 66 18 149/88 (108) 99 11/09/17 07:00 Room Air 11/09/17 04:07 Room Air 11/09/17 04:00 98.1 70 18 124/64 (84) 96 11/09/17 04:00 11/09/17 00:12 Room Air 11/09/17 00:00 98.1 64 18 124/64 (84) 98 11/08/17 23:42 69 11/08/17 20:00 Room Air 11/08/17 20:00 98.1 60 18 160/85 (110) 99 11/08/17 19:42 61 11/08/17 16:00 97.5 61 18 183/96 (125) 98 11/08/17 16:00 67 -: 11/09/17 0703 11/09/17 0703 Physical Exam General Appearance: No Acute Distress, Comfortable Pulmonary Resp Exam: Clear Bilaterally, Breath Sounds Equal Cardiology CV Exam: Regular, Normal Sinus Rhythm Gastrointestinal/Abdomen GI Exam: Distended Integumentary Skin Exam: Warm Extremeties Extremities Exam: Moderate Edema (generalized anasarca) Neurologic Neuro Exam: Alert, Awake Psychiatric Psych Exam: Appropriate Responses Assessment/Plan Problem List: (1) Focal segmental glomerulosclerosis determined by biopsy ICD Codes: N26.9 - Renal sclerosis, unspecified Status: Chronic Plan: Currently being managed by his own stator winder as an outpatient [place]. We will defer to the stator winder regarding immunosuppressive therapy for his glomerulonephritis. (2) Edema ICD Codes: R60.9 - Edema, unspecified Plan: Patient's edema is improving at an acceptable rate (3) History of nephrotic syndrome ICD Codes: Z87.441 - Personal history of nephrotic syndrome Status: Chronic Plan: Continue angiotensin receptor norberto as well as HP Acthar (4) Hypernatremia ICD Codes: E87.0 - Hyperosmolality and hypernatremia Plan: Resolved (5) Hypokalemia ICD Codes: E87.6 - Hypokalemia Plan: Supplement potassium as indicated. (6) Hypertension ICD Codes: I10 - Essential (primary) hypertension Status: Chronic Plan: Recommend resuming losartan which can have multiple beneficial effects in the setting i.e. blood pressure control, potentially reducing proteinuria and it may also help to stabilize his potassium level although follow-up of his potassium level is recommended post discharge in about 1 week Defer this arrangement to hospitalist in-house as well as his own stator winder in [place].. (7) Hepatocellular dysfunction ICD Codes: K76.89 - Other specified diseases of liver Plan: GI has been consulted as per primary Plan Patient cleared for discharge from kidney point of view p.o. torsemide as an outpatient and follow-up with primary care and stator winder in [place] as discussed with the patient within a week or 2. Please call with any questions. Kendrick Angel MD Nov 09, 2017 15:21
[2017-11-09] MEDS: cloNIDine HCL 0.1 MG TAB PO PRN (16:55)
[2017-11-10] VITALS (12 sets, daily range): BP systolic 120–172; BP diastolic 64–95; PULSE 58–73; RESP 18–20; TEMP 97.5–98.2; O2SAT 98–100
[2017-11-10] MEDS: POTASSIUM CHLORIDE 10 MEQ CAP PO SCH ×2 (00:03→13:41)
[2017-11-10] MEDS: SPIRONOLACTONE 50 MG TAB PO SCH (08:57)
[2017-11-10] MEDS: FERROUS SULFATE 325 MG (65 MG ELEMENTAL IRON) TAB PO SCH (08:57)
[2017-11-10] MEDS: MAGNESIUM OXIDE 400 MG TAB PO SCH (08:57)
[2017-11-10] MEDS: cloNIDine HCL 0.2 MG TAB PO SCH ×2 (08:58→21:32)
[2017-11-10] MEDS: LOSARTAN 50 MG TAB PO SCH ×2 (08:58→21:32)
[2017-11-10] MEDS: APIXABAN 2.5 MG TABLET PO SCH ×2 (08:58→21:32)
[2017-11-10] MEDS: METOPROLOL TARTRATE 100 MG TAB PO SCH ×2 (08:59→21:32)
[2017-11-10] MEDS: TORSEMIDE 20 MG TAB PO SCH ×2 (08:59→18:31)
[2017-11-10] MEDS: SODIUM CHLORIDE 0.9% FLUSH 10 ML FLUSH IV FLUSH SCH ×2 (08:59→21:33)
[2017-11-10] MEDS: amLODIPine BESYLATE 5 MG TAB PO SCH (08:59)
[2017-11-10] MEDS: PRAVASTATIN SOD 40 MG TAB PO SCH (08:59)
--- NOTE | 2017-11-10 12:21 | HHI.PR ---
Subjective Remarks This is a pleasant 52 y/o Male with Nephrotic syndrome and recurrent abdominal ascites who readmission after paracentesis, He had a kidney biopsy which shows focal segmental glomerulosclerosis,global glomerulosclerosis, interstitial fibrosis and tubular atrophy. Status post paracentesis while on this admission, Imaging of the abdomen suggests cirrhosis which matches his clinical history. Seen by nephrology specialist, has nephrology specialist as outpatient, deferred management to Nephrology specialist Primary for Immunosuppressive therapy for his glomerulonephritis, Renal function stable, Edema Status post paracentesis, improving on Torsemide Diuril tonight, Replacing Electrolytes, his Potassium 2.9 and Magnesium 1.4, for Nephrotic syndrome to continue ARB, Discussed with his Sister and Nurse Miss Abreu she wants to know more about Hepatocellular Dysfunction, Noted shrunken liver on CT scan c/w hepatocellular disease as per patient he was Unaware of Liver disease, asked for GI specialist inhouse. 11/08: Seen in his bedroom, awaiting final recommendations by Nephrology specialist for discharge, asked for GI specialist consult he has GI specialist as outpatient. 11/09: Stable in his bedroom, already recommended for discharge as per nephrology specialist, discussed with SHREDDING FLOOR EQUIPMENT OPERATOR Miss Fatemeh Roberts from GI, EGD gave Duodenitis, started on Liver Workup not yet recommended for discharge as per GI specialist. 11/10: Patient without complaint, awaiting for discharge probable later today, discussed with nurse and MDR will try to get the clearance by GI specialist he will need to follow as outpatient. No nausea, vomit or diarrhea. Objective Vital Signs Date Time Temp Pulse Resp B/P (MAP) Pulse Ox O2 Delivery O2 Flow Rate FiO2 11/10/17 08:00 97.5 64 20 150/95 (113) 100 11/10/17 08:00 Room Air 11/10/17 04:50 98.0 63 20 145/77 (99) 99 11/10/17 00:30 97.9 67 18 120/66 (84) 98 11/09/17 23:43 67 11/09/17 20:00 98.0 70 17 125/71 (89) 99 11/09/17 20:00 Room Air 11/09/17 19:45 61 11/09/17 16:00 66 11/09/17 16:00 98.0 63 18 172/82 (112) 100 I/O 4/22/11/09/17 11/09/17 11/10/17 11/10/17 11/10/17 07:00 15:00 23:00 07:00 15:00 23:00 Intake Total 240 ml 480 ml 950 ml Output Total 1000 ml Balance 240 ml -520 ml 950 ml Intake Oral 240 ml 480 ml 950 ml Output Urine Total 1000 ml # Voids 3 3 # Bowel Movements 3 2 0 Result Diagram: 11/09/17 0703 11/09/17 0703 Imaging Last Impressions Cyst Biopsy Asp-Paracentesis US 11/06/17 0600 Signed Impressions: Service Date/Time: October 07:37 - CONCLUSION: Uncomplicated ultrasound guided paracentesis. Joaquín Weeks MD Chest X-Ray 11/05/17 153 Signed Impressions: Service Date/Time: Sunday, November 05, 2017 16:06 - CONCLUSION: No acute disease. Dominick Thorne MD FACR Abdomen/Pelvis CT 11/05/171537 Signed Impressions: Service Date/Time: Sunday, November 05, 2017 16:17 - CONCLUSION: Significant ascites umbilical hernia and right hydrocele Small shrunken liver suggesting hepatocellular disease. Dominick Thorne MD FACR Procedures Paracentesis Other Results Laboratory Tests Test 11/05/17 16:00 11/05/17 18:40 11/07/17 06:39 11/09/17 07:03 Prothrombin Time 10.4 SEC Prothromb Time International Ratio 1.0 RATIO Activated Partial Thromboplast Time 27.9 SEC B-Type Natriuretic Peptide 297 PG/ML Urine Color LIGHT-YELLOW Urine Turbidity CLEAR Urine pH 7.0 Urine Specific Lamy 1.018 Urine Protein 300 mg/dL Urine Glucose (UA) 150 mg/dL Urine Ketones NEG mg/dL Urine Occult Blood MOD Urine Nitrite NEG Urine Bilirubin NEG Urine Urobilinogen LESS THAN 2.0 MG/DL Urine Leukocyte Esterase NEG Urine RBC 3 /hpf Urine WBC 2 /hpf Urine Squamous Epithelial Cells <1 /hpf Urine Bacteria RARE /hpf Urine Mucus FEW /lpf Microscopic Urinalysis Comment CULT NOT INDICATED Neutrophils (%) (Auto) 63.3 % Lymphocytes (%) (Auto) 23.0 % Monocytes (%) (Auto) 5.8 % Eosinophils (%) (Auto) 7.5 % Basophils (%) (Auto) 0.4 % Neutrophils # (Auto) 7.5 TH/MM3 Lymphocytes # (Auto) 2.7 TH/MM3 Monocytes # (Auto) 0.7 TH/MM3 Eosinophils # (Auto) 0.9 TH/MM3 Basophils # (Auto) 0.1 TH/MM3 CBC Comment DIFF FINAL Differential Comment Blood Urea Nitrogen 15 MG/DL 18 MG/DL Creatinine 1.69 MG/DL 1.86 MG/DL Random Glucose 78 MG/DL 101 MG/DL Total Protein 4.0 GM/DL Albumin 0.7 GM/DL 0.8 GM/DL Calcium Level 7.5 MG/DL 7.0 MG/DL Magnesium Level 1.4 MG/DL 1.4 MG/DL Alkaline Phosphatase 93 U/L Aspartate Amino Transf (AST/SGOT) 20 U/L Alanine Aminotransferase (ALT/SGPT) 8 U/L Total Bilirubin 0.2 MG/DL Sodium Level 146 MEQ/L 145 MEQ/L Potassium Level 2.9 MEQ/L 3.5 MEQ/L Chloride Level 111 MEQ/L 110 MEQ/L Carbon Dioxide Level 28.3 MEQ/L 28.9 MEQ/L White Blood Count 11.4 TH/MM3 Red Blood Count 3.01 MIL/MM3 Hemoglobin 8.7 GM/DL Hematocrit 25.7 % Mean Corpuscular Volume 85.4 FL Mean Corpuscular Hemoglobin 29.0 PG Mean Corpuscular Hemoglobin Concent 34.0 % Red Cell Distribution Width 14.5 % Platelet Count 299 TH/MM3 Mean Platelet Volume 7.9 FL Phosphorus Level 2.4 MG/DL Anion Gap 6 MEQ/L Estimat Glomerular Filtration Rate 39 ML/MIN Test 11/09/17 13:49 11/09/17 15:15 Iron Level 27 MCG/DL Total Iron Binding Capacity 164 MCG/DL Percent Iron Saturation 16.5 % Ferritin 149 NG/ML Triglycerides Level 132 MG/DL Cholesterol Level 203 MG/DL LDL Cholesterol 133 MG/DL HDL Cholesterol 43.3 MG/DL Cholesterol/HDL Ratio 4.68 RATIO Hepatitis A IgM Antibody NONREACTIVE Hepatitis B Surface Antigen NONREACTIVE Hepatitis B Core IgM Antibody NONREACTIVE Hepatitis C IgG Antibody NONREACTIVE Stool C. difficile Toxin (PCR) NEGATIVE Stl C. difficile Toxin Epiderm 027 PRESUMPTIVE NEGATIVE Objective Remarks GENERAL: NAD, A&Ox3 HEAD: Normocephalic. NECK: Supple, trachea midline. No lymphadenopathy. EYES: No scleral icterus. No injection or drainage. CARDIOVASCULAR: Regular rate and rhythm without murmurs, gallops, or rubs. RESPIRATORY: Breath sounds equal bilaterally. No accessory muscle use. GASTROINTESTINAL: Abdomen soft, non-tender, distended. MUSCULOSKELETAL: No cyanosis, bilateral lower extremity edema. trophic changes positive. SKIN: Warm and dry. NEURO: No focal neurological deficits Medications and IVs Current Medications Medications (Trade) Dose Ordered Sig/Devan Route Start Time Stop Time Status Last Admin (NS Flush) 2 ml UNSCH PRN IV FLUSH 11/05/17 19:30 (NS Flush) 2 ml BID IV FLUSH 11/05/17 21:00 11/10/17 08:59 (Tylenol) 650 mg Q4H PRN PO 11/05/17 19:30 (Zofran Inj) 4 mg Q6H PRN IVP 11/05/17 19:30 (Tylenol) 650 mg Q6H PRN PO 11/05/17 19:30 (Skipwith 5-325 Mg) 1 tab Q4H PRN PO 11/05/17 19:30 (Narcan Inj) 0.4 mg UNSCH PRN IV PUSH 11/05/17 19:30 (Norvasc) 5 mg DAILY PO 11/06/17 09:00 11/10/17 08:59 (Catapres) 0.2 mg BID PO 11/05/17 21:00 11/10/17 08:58 (Ferrous Sulfate) 325 mg DAILY PO 11/06/17 09:00 11/10/17 08:57 (Pravachol) 40 mg DAILY PO 11/06/17 09:00 11/10/17 08:59 (Lopressor) 100 mg BID PO 11/05/17 21:00 11/10/17 08:59 (Aldactone) 50 mg DAILY PO 11/06/17 09:00 11/10/17 08:57 (Catapres) 0.1 mg Q6H PRN PO 11/06/17 08:45 11/09/17 16:55 (Cozaar) 50 mg Q12HR PO 11/06/17 14:45 11/10/17 08:58 (Demadex) 40 mg BID@18 PO 11/06/17 18:00 11/10/17 08:59 (Eliquis) 2.5 mg BID PO 11/06/17 21:00 11/10/17 08:58 (Mag-Ox) 400 mg DAILY PO 11/07/17 09:00 11/10/17 08:57 (KCl) 20 meq Q12H PO 11/08/17 01:00 11/10/17 00:03 A/P Assessment and Plan (1) Edema ICD Code: R60.9 - Edema, unspecified (2) Hypernatremia ICD Code: E87.0 - Hyperosmolality and hypernatremia (3) History of nephrotic syndrome ICD Code: Z87.441 - Personal history of nephrotic syndrome Status: Chronic (4) Focal segmental glomerulosclerosis determined by biopsy ICD Code: N26.9 - Renal sclerosis, unspecified Status: Chronic (5) Hypertension ICD Code: I10 - Essential (primary) hypertension Status: Chronic (6) Hypokalemia ICD Code: E87.6 - Hypokalemia (7) Anasarca ICD Code: R60.1 - Generalized edema (8) Nephrotic syndrome ICD Code: N04.9 - Nephrotic syndrome with unspecified morphologic changes Assessment and Plan 52-year-old male admitted secondary to symptomatic ascites and nephrotic syndrome Anasarca and ascites status post paracentesis. Proteinuria kidney biopsy which shows focal segmental glomerulosclerosis,global glomerulosclerosis, interstitial fibrosis and tubular atrophy. Status post paracentesis while on this admission, Imaging of the abdomen suggests cirrhosis which matches his clinical history. Seen by nephrology specialist, has nephrology specialist as outpatient, deferred management to Nephrology specialist Primary for Immunosuppressive therapy for his glomerulonephritis, Renal function stable, okay to discharge from Nephrology specialist standpoint Nephrotic syndrome Acute on chronic Nephrology following Monitor electrolytes and replace as needed Continue spironolactone and torsemide and ARBs as per GI specialist recommended Albumin but leaves to Nephrology specialist for this management. Electrolyte derangement Replaced by Nephrology specialist. Hypertension Better control. Normochromic normocytic anemia of chronic disease Follow CBC Hyperlipidemia Continue statin Hepatocellular Disease started Liver workup awaiting for clearance for discharge. DVT prophylaxis SCDs Eliquis Discussed with patient in the room, awaiting recommendations by GI for discharge. Discharge Planning Once cleared by GI specialist. Luis Bermeo MD Nov 10, 2017 12:21
--- NOTE | 2017-11-10 14:50 | HHI.GIFU ---
Subjective Remarks Pt OOB to chair. No diarrhea today. No GI complaints. (Pamela Paul) Objective Vitals I&O Vital Signs Date Time Temp Pulse Resp B/P (MAP) Pulse Ox O2 Delivery O2 Flow Rate FiO2 11/10/17 12:00 97.8 59 20 151/82 (105) 100 11/10/17 08:00 97.5 64 20 150/95 (113) 100 11/10/17 08:00 Room Air 11/10/17 04:50 98.0 63 20 145/77 (99) 99 11/10/17 00:30 97.9 67 18 120/66 (84) 98 11/09/17 23:43 67 11/09/17 20:00 98.0 70 17 125/71 (89) 99 11/09/17 20:00 Room Air 11/09/17 19:45 61 11/09/17 16:00 66 11/09/17 16:00 98.0 63 18 172/82 (112) 100 I/O 11/09/17 11/09/17 11/09/17 11/10/17 11/10/17 11/10/17 07:00 15:00 23:00 07:00 15:00 23:00 Intake Total 240 ml 480 ml 950 ml 480 ml Output Total 1000 ml 900 ml Balance 240 ml -520 ml 950 ml -420 ml Intake Oral 240 ml 480 ml 950 ml 480 ml Output Urine Total 1000 ml 900 ml # Voids 3 3 # Bowel Movements 3 2 0 Laboratory Laboratory Tests Test 11/09/17 15:15 Stool C. difficile Toxin (PCR) NEGATIVE Stl C. difficile Toxin Epiderm 027 PRESUMPTIVE NEGATIVE Date/Time Source Procedure Growth Status 11/09/17 15:15 Stool Stool Cryptosporidium Exam - Final NEGATIVE - NO CRYPTOSPORIDIUM ANTIGEN... Complete 11/09/17 15:15 Stool Stool Giardia Antigen (AISHA) - Final NEGATIVE - NO GIARDIA ANTIGEN DETECTE... Complete Imaging Last Impressions Cyst Biopsy Asp-Paracentesis US 11/06/17 0600 Signed Impressions: Service Date/Time: October 07:37 - CONCLUSION: Uncomplicated ultrasound guided paracentesis. Joaquín Weeks MD Chest X-Ray 11/05/17 1538 Signed Impressions: Service Date/Time: Sunday, November 05, 2017 16:06 - CONCLUSION: No acute disease. Dominick Thorne MD FACR Abdomen/Pelvis CT 11/05/17 1538 Signed Impressions: Service Date/Time: Sunday, November 05, 2017 16:17 - CONCLUSION: Significant ascites umbilical hernia and right hydrocele Small shrunken liver suggesting hepatocellular disease. Dominick Thorne MD FACR Physical Exam HEENT: normocephalic, no jaundice CHEST: CTA CARDIAC: RRR +murmur GI: abd distended, semifirm, nontender, BS + EXTREMITIES: BLE edema SKIN : venous stasis changes BLE FURNACE KEEPER: alert & oriented (Pamela Paul) Assessment and Plan Plan Assessment: - CT findings suggesting hepatocellular disease CT abdomen and pelvis W/O IV contrast (11/05) --> Significant ascites umbilical hernia and right hydrocele. Small shrunken liver suggesting hepatocellular disease. Denies history of liver issues. Quit drinking ETOH a few years ago. Hepatitis B and C negative. ROXANE ordered in September, negative. On medication for hyperlipidemia - Ascites - paracentesis in August and had 10,400 cc of fluid removed. Gram stain with rare WBCs, no growth in culture. SAAG 0.5, indicating cause other than portal HTN. Pt with nephrotic syndrome, likely underlying cause. Cytology negative for malignant cells, small lymphocytes present. S/P paracentesis 11/06 with 13,000 cc of fluid removed. - Diarrhea for approx 5 months, state 4-5 episodes a day. Denies blood in his stool. Denies fever, chills, recent travel. Was seen by a GI doctor in [place], states had EGD and colonoscopy approx a month ago with findings of duodenitis and normal colon. - Autoimmune hemolytic anemia- Of note, he is on Eliquis. 11/10/17 hepatitis panel negative. diarrhea improved, + formed BM today. c diff neg, enteric path neg. liver w/u pending. nephrology signed off. Plan: low sodium diet await Liver VARGAS add AFP to liver w/u Spironolactone consider albumin replacement pt seen by myself and Dr Mazariegos and this note is on his behalf (Pamela Paul) Physician Comments Patient seen and examined Agree with above Continue with current supportive care Monitor lab So far workup for the liver is negative If all is stable tomorrow patient may be discharged from a GI standpoint follow- up with GI as an outpatient (Alexis Mazariegos MD) Pamela Paul Nov 10, 2017 14:50 Alexis Mazariegos MD Nov 10, 2017 23:43
[2017-11-10] MEDS ORDERED: [UNRECOGNIZED DRUG - CODE] SQ (17:08)
[2017-11-11] VITALS: BP 115/61; PULSE 64; RESP 17; TEMP 98; O2SAT 98
[2017-11-11] MEDS: POTASSIUM CHLORIDE 10 MEQ CAP PO SCH ×2 (00:40→12:02)
[2017-11-11 03:47] VITALS: PULSE 65
[2017-11-11 04:00] VITALS: BP 141/63; PULSE 64; RESP 17; TEMP 98; O2SAT 99
[2017-11-11] MEDS: SODIUM CHLORIDE 0.9% FLUSH 10 ML FLUSH IV FLUSH SCH (07:27)
[2017-11-11 08:00] VITALS: BP 149/85; PULSE 63; RESP 16; TEMP 97.7; O2SAT 100
[2017-11-11] MEDS: amLODIPine BESYLATE 5 MG TAB PO SCH (08:09)
[2017-11-11] MEDS: FERROUS SULFATE 325 MG (65 MG ELEMENTAL IRON) TAB PO SCH (08:09)
[2017-11-11] MEDS: TORSEMIDE 20 MG TAB PO SCH (08:09)
[2017-11-11] MEDS: METOPROLOL TARTRATE 100 MG TAB PO SCH (08:09)
[2017-11-11] MEDS: SPIRONOLACTONE 50 MG TAB PO SCH (08:09)
[2017-11-11] MEDS: MAGNESIUM OXIDE 400 MG TAB PO SCH (08:09)
[2017-11-11] MEDS: LOSARTAN 50 MG TAB PO SCH (08:09)
[2017-11-11] MEDS: cloNIDine HCL 0.2 MG TAB PO SCH (08:09)
[2017-11-11] MEDS: APIXABAN 2.5 MG TABLET PO SCH (08:09)
[2017-11-11] MEDS: PRAVASTATIN SOD 40 MG TAB PO SCH (08:09)
--- NOTE | 2017-11-11 09:57 | HHI.PR ---
Subjective Remarks up in chair -just finished breakfast no complains of abdominla pin or bloating, no nausea or vomiting no shortness of breath Objective Vitals Vital Signs Date Time Temp Pulse Resp B/P (MAP) Pulse Ox O2 Delivery O2 Flow Rate FiO2 11/11/17 08:00 97.7 63 16 149/85 (106) 100 11/11/17 04:00 98.0 64 17 141/63 (89) 99 11/11/17 03:47 65 11/11/17 00:00 98.0 64 17 115/61 (79) 98 11/10/17 23:47 62 11/10/17 20:15 Room Air 11/10/17 20:00 97.8 70 18 133/64 (87) 99 11/10/17 19:49 73 11/10/17 18:20 61 172/80 (110) 11/10/17 15:43 61 11/10/17 15:00 98.2 60 20 149/79 (102) 100 11/10/17 12:00 97.8 59 20 151/82 (105) 100 11/10/17 11:48 58 I/O 11/10/17 11/10/17 11/10/17 11/11/17 11/11/17 11/11/17 07:00 15:00 23:00 07:00 15:00 23:00 Intake Total 950 ml 480 ml 240 ml Output Total 900 ml Balance 950 ml -420 ml 240 ml Intake Oral 950 ml 480 ml 240 ml Output Urine Total 900 ml # Voids 3 5 # Bowel Movements 0 0 Result Diagram: 11/09/17 0703 11/09/17 0703 Imaging Last Impressions Cyst Biopsy Asp-Paracentesis US 11/06/17 0600 Signed Impressions: Service Date/Time: October 07:37 - CONCLUSION: Uncomplicated ultrasound guided paracentesis. Joaquín Weeks MD Chest X-Ray 11/05/171537 Signed Impressions: Service Date/Time: Sunday, November 05, 2017 16:06 - CONCLUSION: No acute disease. Dominick Thorne MD FACR Abdomen/Pelvis CT 11/05/171537 Signed Impressions: Service Date/Time: Sunday, November 05, 2017 16:17 - CONCLUSION: Significant ascites umbilical hernia and right hydrocele Small shrunken liver suggesting hepatocellular disease. Dominick Thorne MD FACR Objective Remarks awake and alert, no acute distress anciteric lungs- no rales regular rhythm abdomen- soft, good bowel sounds, + fluid wave LE- + edema, no calf tenderness Procedures 11/06 - therapeutic paracentesis 13,000 cc out A/P Problem List: (1) Ascites ICD Code: R18.8 - Other ascites Status: Acute (2) Nephrotic syndrome ICD Code: N04.9 - Nephrotic syndrome with unspecified morphologic changes (3) Acute renal failure superimposed on chronic kidney disease ICD Code: N17.9 - Acute kidney failure, unspecified; N18.9 - Chronic kidney disease, unspecified Status: Acute (4) Anasarca ICD Code: R60.1 - Generalized edema (5) Hypertension ICD Code: I10 - Essential (primary) hypertension Status: Chronic Assessment and Plan 52-year-old male admitted secondary to symptomatic ascites and nephrotic syndrome Anasarca and ascites status post paracentesis. Proteinuria kidney biopsy which shows focal segmental glomerulosclerosis,global glomerulosclerosis, interstitial fibrosis and tubular atrophy. Status post paracentesis while on this admission, Seen by nephrology specialist, has nephrology specialist as outpatient, deferred management to Nephrology specialist Primary for Immunosuppressive therapy for his glomerulonephritis, Renal function stable, okay to discharge from Nephrology specialist standpoint FF up with his PCP/Marketing Recruiter- Dr. Moon Nephrotic syndrome Acute on chronic Nephrology following Monitor electrolytes and replace as needed Continue spironolactone and torsemide and ARBs as per GI specialist OP ff up with his Marketing Recruiter- d/w him that nephrology can order OP periodic paracentesis if he becomes symptomatic- patient expressed udnerstanding Electrolyte derangement Replaced Hypertension Better control. Normochromic normocytic anemia of chronic disease Follow CBC Hyperlipidemia Continue statin Hepatocellular Disease - no encephalopathy History of LE DVT - on eliquis DVT prophylaxis SCDs Eliquis Problem Qualifiers (1) Ascites: Qualified Codes: R18.8 - Other ascites (2) Acute renal failure superimposed on chronic kidney disease: Qualified Codes: N17.9 - Acute kidney failure, unspecified; N18.3 - Chronic kidney disease, stage 3 (moderate) Dennis Siddiqui MD Nov 11, 2017 09:57
[2017-11-11] MEDS ORDERED: TORS1TAB12 PO (10:01)
[2017-11-11] MEDS ORDERED: POTA10CA PO (10:01)
[2017-11-11] MEDS ORDERED: MAGN400T2 PO (10:12)
--- NOTE | 2017-11-11 10:15 | HHI.DS ---
Discharge Summary Admission Date Nov 05, 2017 at 17:10 Discharge Date: Nov 11, 2017 Admitting Diagnosis Nephrotic syndrome. Ascites. Acute on chronic kidney disease. (1) Ascites ICD Code: R18.8 - Other ascites Status: Acute (2) Nephrotic syndrome ICD Code: N04.9 - Nephrotic syndrome with unspecified morphologic changes (3) Acute renal failure superimposed on chronic kidney disease ICD Code: N17.9 - Acute kidney failure, unspecified; N18.9 - Chronic kidney disease, unspecified Status: Acute (4) Anasarca ICD Code: R60.1 - Generalized edema (5) Hypertension ICD Code: I10 - Essential (primary) hypertension Status: Chronic Procedures 11/06 - therapeutic paracentesis 13,000 cc out Brief History - From Admission 52-year-old man with history of nephrotic syndrome and recurrent abdominal ascites present to the ED for evaluation of progressive swelling of abdominal wall, abdominal pain with shortness of breath. Patient was admitted to [facility] on September 16, 2017 and discharged on September 19, 2017 and treated with paracentesis secondary to ascites. He currently on dose severe shortness of breath and wheezing as well as urinary incontinence. He denies any nausea, emesis or diarrhea. During that hospitalization, nephrology was consulted. Today, patient's went to his billing services manager and was advised to seek medical inpatient secondary to above complaints. He had a kidney biopsy which shows focal segmental glomerulosclerosis,global glomerulosclerosis, interstitial fibrosis and tubular atrophy. CBC/BMP: 11/09/17 0703 11/09/17 0703 Significant Findings Laboratory Tests Test 11/09/17 07:03 11/09/17 13:49 11/09/17 15:15 11/11/17 04:00 White Blood Count 11.4 TH/MM3 (4.0-11.0) Red Blood Count 3.01 MIL/MM3 (4.50-5.90) Hemoglobin 8.7 GM/DL (13.0-17.0) Hematocrit 25.7 % (39.0-51.0) Creatinine 1.86 MG/DL (0.60-1.30) Albumin 0.8 GM/DL (3.4-5.0) Calcium Level 7.0 MG/DL (8.5-10.1) Phosphorus Level 2.4 MG/DL (2.5-4.9) Magnesium Level 1.4 MG/DL (1.5-2.5) Chloride Level 110 MEQ/L (98-107) Estimat Glomerular Filtration Rate 39 ML/MIN (>89) Iron Level 27 MCG/DL (65-175) Total Iron Binding Capacity 164 MCG/DL (250-450) Percent Iron Saturation 16.5 % (20-50) Cholesterol Level 203 MG/DL (120-200) LDL Cholesterol 133 MG/DL (0-99) Imaging Last Impressions Cyst Biopsy Asp-Paracentesis US 11/06/17 0600 Signed Impressions: Service Date/Time: October 07:37 - CONCLUSION: Uncomplicated ultrasound guided paracentesis. Joaquín Weeks MD Chest X-Ray 11/05/17 1538 Signed Impressions: Service Date/Time: Sunday, November 05, 2017 16:06 - CONCLUSION: No acute disease. Dominick Thorne MD FACR Abdomen/Pelvis CT 11/05/17 1538 Signed Impressions: Service Date/Time: Sunday, November 05, 2017 16:17 - CONCLUSION: Significant ascites umbilical hernia and right hydrocele Small shrunken liver suggesting hepatocellular disease. Dominick Thorne MD FACR PE at Discharge awake and alert, no acute distress anciteric lungs- no rales regular rhythm abdomen- soft, good bowel sounds, + fluid wave LE- + edema, no calf tenderness Pt update on day of discharge awake and alert no acute distress no complains of pain Hospital Course 52-year-old male admitted secondary to symptomatic ascites and nephrotic syndrome Anasarca and ascites status post paracentesis. Proteinuria kidney biopsy which shows focal segmental glomerulosclerosis,global glomerulosclerosis, interstitial fibrosis and tubular atrophy. Status post paracentesis while on this admission, Seen by nephrology specialist, has nephrology specialist as outpatient, deferred management to Nephrology specialist Primary for Immunosuppressive therapy for his glomerulonephritis, Renal function stable, okay to discharge from Nephrology specialist standpoint FF up with his PCP/Research Advisor- Dr. Moon Nephrotic syndrome Acute on chronic Nephrology following Monitor electrolytes and replace as needed Continue spironolactone and torsemide and ARBs as per GI specialist OP ff up with his Research Advisor- d/w him that nephrology can order OP periodic paracentesis if he becomes symptomatic- patient expressed udnerstanding Electrolyte derangement Replaced Hypertension Better control. Normochromic normocytic anemia of chronic disease Hyperlipidemia Continue statin Hepatocellular Disease - no encephalopathy History of LE DVT - on eliquis Pt Condition on Discharge: Stable Discharge Disposition: Discharge Home Discharge Time: > 30 minutes Discharge Instructions DIET: Follow Instructions for: Heart Healthy Diet Speech Therapy-Diet Recommends: Regular Activities you can perform: Weight Bearing as Abran Activities to Avoid: Strenuous Activity Follow up Referrals: Nephrology - 11/13/17 with PAU PCP Follow-up - 11/12/17 with pérez TURNER New Orders: COMP MET PROF (CMP) - 11/13/17 New Medications: Magnesium Oxide (Magnesium Oxide) 400 Mg Tab 400 MG PO DAILY for electr for 30 Days, #30 TAB Potassium Chloride ER (Potassium Chloride ER) 10 Meq Cap 20 MEQ PO Q12H for electro for 30 Days, #120 CAP Torsemide (Demadex) 20 Mg Tab 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 for 30 Days, TAB Continued Medications: Amlodipine (Amlodipine) 5 Mg Tab 5 MG PO DAILY for Blood Pressure Management, #30 TAB 0 Refills Apixaban (Eliquis) 2.5 Mg Tab 2.5 MG PO BID for Blood Clot Prevention for 30 Days, #60 TAB Aspirin (Aspirin) 81 Mg Chew 81 MG CHEW DAILY, TAB 0 Refills Calcium Carbonate/Vitamin D3 (Calcium 500 + Vit D Caplet) 500 Mg-125 Tablet Clonidine (Clonidine) 0.2 Mg Tab 0.2 MG PO BID for Blood Pressure Management, #60 TAB 0 Refills Ferrous Sulfate (Feosol) 325 Mg (65 Mg Iron) Tab 325 MG PO DAILY for Nutritional Supplement, #30 TAB 0 Refills Losartan (Cozaar) 50 Mg Tab 50 MG PO BID for Blood Pressure Management for 30 Days, #60 TAB Lovastatin (Lovastatin) 40 Mg Tab 40 MG PO DAILY for Cholesterol Management, #30 TAB 0 Refills Metoprolol Tartrate (Metoprolol Tartrate) 100 Mg Tab 100 MG PO BID, #60 TAB 0 Refills Spironolactone (Spironolactone) 50 Mg Tab 50 MG PO DAILY, #30 TAB 0 Refills Discontinued Medications: Furosemide (Lasix) 40 Mg Tab 60 MG PO BID for Blood Pressure Management for 30 Days, #90 TAB 0 Refills Dennis Siddiqui MD Nov 11, 2017 10:15
[2017-11-11 12:00] VITALS: BP 143/84; PULSE 60; RESP 16; TEMP 97.9; O2SAT 100
[2017-11-11 13:34] LABS: SMOOTH MUSCLE TOTAL AUTOABS Negative (Negative)
[2017-11-11 13:48] LABS: ALPHA-1-ANTITRYPSIN 168 mg/dL (100 - 190)
== END 2017-11-11 13:31 | disposition home or self-care (01) | DRG 699 ==
LOC: NEPC 14:56 → NEDA 17:10 → NEDH 21:52 → N04B 11-06 10:35
PROVIDERS: ADMIT Internal Medicine; ATTEND Internal Medicine
PROC: 0W9G3ZZ Drainage of Peritoneal Cavity, Percutaneous Approach (ICD-10-PCS; principal; 2017-11-06)
DX: N04.1 Nephrotic syndrome with focal and segmental glomerular lesions (principal); R18.8 Other ascites; I42.9 Cardiomyopathy, unspecified; E87.0 Hyperosmolality and hypernatremia; N17.9 Acute kidney failure, unspecified; N18.3 Chronic kidney disease, stage 3 (moderate); D59.1 Other autoimmune hemolytic anemias; I12.9 Hypertensive chronic kidney disease with stage 1 through stage 4 chronic kidney disease, or unspecified chronic kidney disease; I07.1 Rheumatic tricuspid insufficiency; Z72.0 Tobacco use; K21.9 Gastro-esophageal reflux disease without esophagitis; E78.5 Hyperlipidemia, unspecified; Z86.010 Personal history of colon polyps; R74.8 Abnormal levels of other serum enzymes; L40.9 Psoriasis, unspecified; R32 Unspecified urinary incontinence; R06.2 Wheezing; E87.6 Hypokalemia; D63.8 Anemia in other chronic diseases classified elsewhere; Z87.441 Personal history of nephrotic syndrome; Z86.718 Personal history of other venous thrombosis and embolism; K76.89 Other specified diseases of liver; Z79.01 Long term (current) use of anticoagulants
CPT/HCPCS: 49083; 71045; 74176; 80053; 80061; 80069; 80074; 81001; 82103; 82105; 82390; 82728; 83520; 83540; 83550; 83735; 83880; 84100; 84132; 85025; 85027; 85610; 85730; 86255; 86803; 87328; 87329; 87340; 87493; 87506; 93005; C1729; J1205; J3475

== ENCOUNTER 2017-12-23 12:15 | Emergency (ER) | payer OTHER ==
[~2017-12-23 12:15] MED LIST changes: -FURO1TAB60 PO; +MAGN400T2 PO; +TORS1TAB12 PO; +[UNRECOGNIZED DRUG - CODE] SQ
[2017-12-23 12:26] VITALS: BP 205/103; PULSE 98; RESP 16; TEMP 98.3; O2SAT 98
--- NOTE | 2017-12-23 12:57 | PD ---
HPI Chief Complaint: GI Complaint Time Seen by Provider: 12:57 Travel History International Travel<30 days: No Contact w/Intl Traveler<30days: No Traveled to known affect area: No History of Present Illness HPI 52-year-old male came to the emergency room with history of ascites. Patient has had paracentesis done multiple times in the past. He says that his abdomen has started to increase in size and he came here today to get the fluid taken out. No history of abdominal pain per se. No history of fever or chills. Patient walked in to the hospital to get this procedure done. He went to registration and was directed to come to the emergency room. Vital signs are stable. This is a chronic condition. [facility] Past Medical History Narrative Medical List of his past medical, surgical, social and family history reviewed from the nursing note. Autoimmune Disease: Yes (AUTIMMUNE HEMOLYTIC ANEMIA) Cancer: No Cardiovascular Problems: Yes (TRICUSPID REGURGITATION, cardiomyopathy) High Cholesterol: Yes Chest Pain: No Diabetes: No Diminished Hearing: No Endocrine: No Gastrointestinal Disorders: Yes (GERD) Genitourinary: Yes (NEPHROTIC SYNDROME) Hiatal Hernia: No Heparin Induced Thrombocytopen: No Hypertension: Yes Immune Disorder: Yes Implanted Vascular Access Dvce: No Musculoskeletal: No Neurologic: No Psychiatric: Yes Reproductive: No Respiratory: Yes Immunizations Current: Yes Sickle Cell Disease: No Thyroid Disease: No Past Surgical History Abdominal Surgery: Yes (Ascities, paracentesis) AICD: No Cardiac Surgery: No Ear Surgery: No Eye Surgery: No Genitourinary Surgery: No Gynecologic Surgery: No Insulin Pump: No Joint Replacement: No Neurologic Surgery: No Oral Surgery: No Pacemaker: No Thoracic Surgery: No Other Surgery: Yes (cyst on forehead 1993) Social History Alcohol Use: No Tobacco Use: Yes (07/22 PPD ) Substance Use: No Allergies-Medications (Allergen,Severity, Reaction): Coded Allergies: No Known Allergies (Unverified , 10/09/17) Comments No known drug allergies. Reported Meds & Prescriptions Reported Meds & Active Scripts Active Magnesium Oxide 400 Mg Tab 400 Mg PO DAILY 30 Days Potassium Chloride ER (Potassium Chloride) 10 Meq Cap 20 Meq PO Q12H 30 Days Demadex (Torsemide) 20 Mg Tab 40 Mg PO BID@,18 30 Days Eliquis (Apixaban) 2.5 Mg Tab 2.5 Mg PO BID 30 Days Cozaar (Losartan Potassium) 50 Mg Tab 50 Mg PO BID 30 Days Potassium Chloride ER (Potassium Chloride) 10 Meq Cap 10 Meq PO TID Reported [acthar-gel ] 80 SQ 2XWEEK Mondays and Dicyclomine (Dicyclomine HCl) 10 Mg Cap 10 Mg PO Q4-6H PRN Feosol (Ferrous Sulfate) 325 Mg (65 Mg Iron) Tab 325 Mg PO DAILY Acthib Inj (Haemophilus B Polysac Conj Vacc Inj) 0.5 Ml Vial 0.5 Ml IM .ONCE Spironolactone 50 Mg Tab 50 Mg PO DAILY Clonidine (Clonidine HCl) 0.2 Mg Tab 0.2 Mg PO BID Amlodipine (Amlodipine Besylate) 5 Mg Tab 5 Mg PO DAILY Metoprolol Tartrate 100 Mg Tab 100 Mg PO BID Aspirin 81 Mg Chew 81 Mg CHEW DAILY Lovastatin 40 Mg Tab 40 Mg PO DAILY Calcium 500 + Vit D Caplet (Calcium Carbonate/Vitamin D3) 500 Mg-125 Tablet Narrative Medication List of his home medications reviewed from the nursing note. Review of Systems Except as stated in HPI: all other systems reviewed are Neg Physical Exam Narrative GENERAL: Awake, alert, no obvious to SKIN: Focused skin assessment warm/dry. HEAD: Atraumatic. Normocephalic. EYES: Pupils equal and round. No scleral icterus. No injection or drainage. ENT: No nasal bleeding or discharge. Mucous membranes pink and moist. NECK: Trachea midline. No JVD. CARDIOVASCULAR: Regular rate and rhythm. No murmur appreciated. RESPIRATORY: No accessory muscle use. Clear to auscultation. Breath sounds equal bilaterally. GASTROINTESTINAL: Abdomen soft, non-tender, nondistended. Hepatic and splenic margins not palpable. Ascites. MUSCULOSKELETAL: No obvious deformities. No clubbing. No cyanosis. Bilateral pedal edema. NEUROLOGICAL: Awake and alert. No obvious cranial nerve deficits. Motor grossly within normal limits. Normal speech. PSYCHIATRIC: Appropriate mood and affect; insight and judgment normal. Data Data Last Documented VS Orders Orders Complete Blood Count With Diff (12/23/17 13:05) Prothrombin Time / Inr (Pt) (12/23/17 13:05) Ed Discharge Order (12/23/17 13:39) Labs Laboratory Tests Test 12/23/17 13:20 White Blood Count 14.7 TH/MM3 Red Blood Count 3.33 MIL/MM3 Hemoglobin 9.6 GM/DL Hematocrit 28.1 % Mean Corpuscular Volume 84.4 FL Mean Corpuscular Hemoglobin 29.0 PG Mean Corpuscular Hemoglobin Concent 34.3 % Red Cell Distribution Width 14.5 % Platelet Count 345 TH/MM3 Mean Platelet Volume 7.6 FL Neutrophils (%) (Auto) 77.3 % Lymphocytes (%) (Auto) 12.7 % Monocytes (%) (Auto) 6.9 % Eosinophils (%) (Auto) 2.9 % Basophils (%) (Auto) 0.2 % Neutrophils # (Auto) 11.4 TH/MM3 Lymphocytes # (Auto) 1.9 TH/MM3 Monocytes # (Auto) 1.0 TH/MM3 Eosinophils # (Auto) 0.4 TH/MM3 Basophils # (Auto) 0.0 TH/MM3 CBC Comment DIFF FINAL Differential Comment Prothrombin Time 10.0 SEC Prothromb Time International Ratio 1.0 RATIO MDM Medical Decision Making Medical Screen Exam Complete: Yes Emergency Medical Condition: Yes Medical Record Reviewed: Yes Differential Diagnosis Chronic ascites, nephrotic syndrome Narrative Course 1:33 PM according to the department protocol this patient meets criteria for an outpatient paracentesis since there is no emergency. Once again as per the protocol I have ordered CBC and PT/INR. Patient will be discharged home. I faxed the physician order form for the paracentesis. Patient will have to call the number to make the appointment. Procedures EKG Prior to Arrival: No Diagnosis Primary Impression: Ascites Qualified Codes: R18.8 - Other ascites Additional Instructions: Call [phone] to schedule an appointment for your outpatient tap. He would have to hold her Eliquis 2-3 days prior to the procedure or as per the radiology department recommendation. Disposition: 01 DISCHARGE HOME Condition: Stable Karen Olson MD Dec 23, 2017 12:57
[2017-12-23 13:36] LABS: AUTOMATED NEUTROPHIL # 11.4 TH/MM3 (1.8-7.7); BASOPHIL % 0.2 % (0.0-2.0); EOSINOPHIL # 0.4 TH/MM3 (0-0.4); EOSINOPHIL % 2.9 % (0.0-4.0); HEMATOCRIT 28.1 % (39.0-51.0); HEMOGLOBIN 9.6 GM/DL (13.0-17.0); LYMPH % 12.7 % (9.0-44.0); LYMPHOCYTE # 1.9 TH/MM3 (1.0-4.8); MEAN CELL VOLUME 84.4 FL (80.0-100.0); MEAN CORPUSCULAR HGB CONC 34.3 % (32.0-36.0); MEAN PLATELET VOLUME 7.6 FL (7.0-11.0); MONO % 6.9 % (0.0-8.0); NEUT % 77.3 % (16.0-70.0); PLATELET COUNT 345 TH/MM3 (150-450); RED BLOOD COUNT 3.33 MIL/MM3 (4.50-5.90); RED CELL DISTRIBUTION WIDTH 14.5 % (11.6-17.2); WHITE BLOOD COUNT 14.7 TH/MM3 (4.0-11.0)
[2017-12-23 14:10] VITALS: BP 180/100
== END 2017-12-23 14:10 | disposition home or self-care (01) ==
LOC: NEPD 12:15
DX: R18.8 Other ascites (principal); E78.00 Pure hypercholesterolemia, unspecified; D59.1 Other autoimmune hemolytic anemias; N04.9 Nephrotic syndrome with unspecified morphologic changes; I10 Essential (primary) hypertension; K21.9 Gastro-esophageal reflux disease without esophagitis; F17.200 Nicotine dependence, unspecified, uncomplicated
CPT/HCPCS: 85025; 85610; 99283

== ENCOUNTER 2017-12-24 07:31 | Day surgery (SDC) | payer OTHER ==
[2017-12-24 08:02] VITALS: BP 161/96; PULSE 78; RESP 16; TEMP 98.1; O2SAT 98
[2017-12-24 09:20] VITALS: BP 177/101; PULSE 75; RESP 20; TEMP 97.9; O2SAT 98
[2017-12-24] MEDS ORDERED: LIDOCAINE HCL 1% 20 ML VIAL ONE (09:20)
[2017-12-24 09:35] VITALS: BP 163/96; PULSE 69; RESP 20; O2SAT 99
--- NOTE | 2017-12-24 10:31 | RADRPT ---
EXAM DATE: 12/24/2017 9:18 AM EDT AGE/SEX: 52 years / Male INDICATIONS: Ascites. CLINICAL DATA: This is the patient's subsequent encounter. Patient reports that signs and symptoms h ave been present for 2 months and indicates a pain score of 0/10. MEDICAL/SURGICAL HISTORY: . Hypercholesterolemia. Hypertension. Gastroesophageal reflux disease . Ascites. Renal disease. Tricuspid Regurgitation. Nephrotic Syndrome. Autoimmune hemolytic anemia. . Paracentesis. COMPARISON: [facility] [place]ACENTES[place], 11/06/2017. . FLUID: Total volume of 4,000 cc of cloudy, yellow fluid was removed. Fluid was discarded. Paracentesis was t herapeutic only. . . TECHNIQUE: Ultrasound guidance for abdominal paracentesis. Paracentesis. The risks, benefits, and alternatives to ultrasound guided paracentesis were explained to the patient in detail including the risk of bleeding and infection. Written and verbal informed consent was obt ained. With the patient on the ultrasound table, ultrasound imaging was used to select the most appropriate approach for paracentesis. Overlying skin was prepped and draped in the usual sterile fashion and wi th a local anesthetic, a dermatotomy was made with an 11 blade scalpel. A 6 Romanian Saf-T -centesis c atheter was introduced into the peritoneal cavity and fluid was collected. Post procedure scanning reveals no hematoma or other complication. The patient tolerated the procedu re well and left the ultrasound suite in stable condition. CONCLUSION: Uncomplicated paracentesis, as above. Electronically signed by: Jesse Sotomayor MD 12/24/2017 10:29 AM EDT
== END 2017-12-24 09:38 | disposition home or self-care (01) ==
LOC: HRAD 07:31 → HRIP 07:32 → HRAD 09:38
PROVIDERS: ATTEND Pediatrics
DX: R18.8 Other ascites (principal); K21.9 Gastro-esophageal reflux disease without esophagitis; I10 Essential (primary) hypertension; E78.00 Pure hypercholesterolemia, unspecified
CPT/HCPCS: 49083; C1729